=== PATIENT | female | born 1940 | race Caucasian/White ===

== ENCOUNTER 2017-05-12 09:12 | Emergency (ER) | payer BC ==
[2017-05-12] MEDS ORDERED: FAMOTIDINE INJ/PF 20 MG/2 ML SDV IV ONE (09:36)
[2017-05-12] MEDS ORDERED: NORMAL SALINE 1000 ML 1,000 ML IV PRN (09:36)
[2017-05-12] MEDS ORDERED: ONDANSETRON HCL INJ/PF 4 MG/2 ML SDV IV ONE (09:36)
--- NOTE | 2017-05-12 09:36 | ER Document Report ---
ED Medical Screen (RME) - General Chief Complaint: Nausea/Vomiting/Diarrhea Stated Complaint: BACK PAIN, VOMITING Time Seen by Provider: 05/12/17 09:35 Mode of Arrival: Wheelchair Information source: Patient TRAVEL OUTSIDE OF THE [place] IN LAST 30 DAYS: No - HPI Patient complains to provider of: Nausea vomiting and diarrhea Onset: Last week Onset/Duration: Persistent Quality of pain: No pain Associated Symptoms: Diarrhea, Nausea, Vomiting Notes: 05/12/17 09:35 Patient is a 77-year-old female who presents to the emergency room for 1 week history of nausea vomiting and diarrhea, states everything that she eats either gets vomited back up as DIARRHEA, SHE IS FEELING GENERALIZED WEAKNESS AND FATIGUE WELL, DENIES ABDOMINAL PAIN, NO FEVER, NO DYSURIA OR HEMATURIA - Related Data Allergies/Adverse Reactions: ciprofloxacin [From Cipro] Allergy (Verified 05/12/17 09:27) codeine [Codeine] Allergy (Verified 05/12/17 09:27) erythromycin base [Erythromycin Base] Allergy (Verified 05/12/17 09:27) Penicillins Allergy (Verified 05/12/17 09:27) sulfamethoxazole [Sulfamethoxazole] Allergy (Verified 05/12/17 09:27) Tetanus Vaccines and Toxoid [Tetanus] Allergy (Verified 05/12/17 09:27) trimethoprim [From Bactrim DS] Allergy (Verified 05/12/17 09:27) GAS PAIN Past Medical History - Past Medical History Cardiac Medical History: Reports: Hx Heart Attack - mild, Hx Hypercholesterolemia, Hx Hypertension Denies: Hx Coronary Artery Disease Pulmonary Medical History: Reports: Hx Asthma, Hx Bronchitis Denies: Hx COPD, Hx Pneumonia Neurological Medical History: Denies: Hx Cerebrovascular Accident, Hx Seizures Endocrine Medical History: Reports: Hx Diabetes Mellitus Type 2 Renal/ Medical History: Denies: Hx Peritoneal Dialysis GI Medical History: Reports: Hx Gastroesophageal Reflux Disease Musculoskeltal Medical History: Reports Hx Arthritis, Reports Hx Gout Psychiatric Medical History: Reports: Hx Anxiety - Benzodiazepine dependency, continuous, Hx Dementia, Hx Depression Infectious Medical History: Past Surgical History: Reports: Hx Appendectomy, Hx Cholecystectomy, Hx Hysterectomy - Immunizations Hx Diphtheria, Pertussis, Tetanus Vaccination: No Physical Exam - Vital signs Vitals: Temp Pulse Resp BP Pulse Ox 98.4 F 101 H 20 185/76 H 94 05/12/17 09:26 05/12/17 09:26 05/12/17 09:26 05/12/17 09:26 05/12/17 09:26 Course - Vital Signs Vital signs: Temp Pulse Resp BP Pulse Ox 98.4 F 101 H 20 185/76 H 94 05/12/17 09:26 05/12/17 09:26 05/12/17 09:26 05/12/17 09:26 05/12/17 09:26
--- NOTE | 2017-05-12 10:16 | ER Document Report ---
ED General - General Chief Complaint: Nausea/Vomiting/Diarrhea Stated Complaint: BACK PAIN, VOMITING Time Seen by Provider: 05/12/17 09:35 Mode of Arrival: Wheelchair Information source: Patient Notes: 77-year-old female history of hypertension presents with complaints of 1 week of vomiting episodes with diarrhea. Patient denies any fevers or chills denies any abdominal pain. Patient notes that the vomiting occurs either immediately after eating or possibly even 6-12 hours later. Patient denies any similar episodes states she has been unable to hold her medications down TRAVEL OUTSIDE OF THE [place] IN LAST 30 DAYS: No - HPI Onset: Last week Onset/Duration: Persistent Quality of pain: No pain Severity: Mild Pain Level: Denies Associated symptoms: Diarrhea, Nausea, Vomiting Exacerbated by: Denies Relieved by: Denies Similar symptoms previously: No Recently seen / treated by doctor: No - Related Data Allergies/Adverse Reactions: ciprofloxacin [From Cipro] Allergy (Verified 05/12/17 09:27) codeine [Codeine] Allergy (Verified 05/12/17 09:27) erythromycin base [Erythromycin Base] Allergy (Verified 05/12/17 09:27) Penicillins Allergy (Verified 05/12/17 09:27) sulfamethoxazole [Sulfamethoxazole] Allergy (Verified 05/12/17 09:27) Tetanus Vaccines and Toxoid [Tetanus] Allergy (Verified 05/12/17 09:27) trimethoprim [From Bactrim DS] Allergy (Verified 05/12/17 09:27) GAS PAIN Past Medical History - General Information source: Patient - Social History Smoking Status: Never Smoker Cigarette use (# per day): No Chew tobacco use (# tins/day): No Smoking Education Provided: No Frequency of alcohol use: None Drug Abuse: None Family History: Reviewed & Not Pertinent, Hypertension Patient has suicidal ideation: No Patient has homicidal ideation: No - Past Medical History Cardiac Medical History: Reports: Hx Heart Attack - mild, Hx Hypercholesterolemia, Hx Hypertension Denies: Hx Coronary Artery Disease Pulmonary Medical History: Reports: Hx Asthma, Hx Bronchitis Denies: Hx COPD, Hx Pneumonia Neurological Medical History: Denies: Hx Cerebrovascular Accident, Hx Seizures Endocrine Medical History: Reports: Hx Diabetes Mellitus Type 2 Renal/ Medical History: Denies: Hx Peritoneal Dialysis GI Medical History: Reports: Hx Gastroesophageal Reflux Disease Musculoskeltal Medical History: Reports Hx Arthritis, Reports Hx Gout Psychiatric Medical History: Reports: Hx Anxiety - Benzodiazepine dependency, continuous, Hx Dementia, Hx Depression Infectious Medical History: Past Surgical History: Reports: Hx Appendectomy, Hx Cholecystectomy, Hx Hysterectomy - Immunizations Hx Diphtheria, Pertussis, Tetanus Vaccination: No Review of Systems - Review of Systems Notes: REVIEW OF SYSTEMS: CONSTITUTIONAL : Denies fever, chills, or sweats. Denies recent illness. EENT: Denies eye, ear, throat, or mouth pain or symptoms. Denies nasal or sinus congestion or discharge. Denies throat, tongue, or mouth swelling or difficulty swallowing. CARDIOVASCULAR: Denies chest pain. Denies palpitations or racing or irregular heart beat. Denies ankle edema. RESPIRATORY: Denies cough, cold, or chest congestion. Denies shortness of breath, difficulty breathing, or wheezing. GASTROINTESTINAL: admits to nausea vomiting diarrhea GENITOURINARY: Denies difficulty urinating, painful urination, burning, frequency, blood in urine, or discharge. FEMALE GENITOURINARY: Denies vaginal bleeding, heavy or abnormal periods, irregular periods. Denies vaginal discharge or odor. MUSCULOSKELETAL: Denies back or neck pain or stiffness. Denies joint pain or swelling. SKIN: Denies rash, lesions or sores. HEMATOLOGIC : Denies easy bruising or bleeding. LYMPHATIC: Denies swollen, enlarged glands. NEUROLOGICAL: Denies confusion or altered mental status. Denies passing out or loss of consciousness. Denies dizziness or lightheadedness. Denies headache. Denies weakness or paralysis or loss of use of either side. Denies problems with gait or speech. Denies sensory loss, numbness, or tingling. Denies seizures. PSYCHIATRIC: Denies anxiety or stress. Denies depression, suicidal ideation, or homicidal ideation. ALL OTHER SYSTEMS REVIEWED AND NEGATIVE. PHYSICAL EXAMINATION: GENERAL: Well-appearing, well-nourished and in no acute distress. HEAD: Atraumatic, normocephalic. EYES: Pupils equal round and reactive to light, extraocular movements intact, conjunctiva are normal. ENT: Nares patent, oropharynx clear without exudates. Moist mucous membranes. NECK: Normal range of motion, supple without lymphadenopathy LUNGS: Breath sounds clear to auscultation bilaterally and equal. No wheezes rales or rhonchi. HEART: Regular rate and rhythm without murmurs ABDOMEN: Soft, nontender, nondistended abdomen. No guarding, no rebound. No masses appreciated. Female : deferred Musculoskeletal: Normal range of motion, no pitting or edema. No cyanosis. NEUROLOGICAL: Cranial nerves grossly intact. Normal speech, normal gait. Normal sensory, motor exams PSYCH: Normal mood, normal affect. SKIN: Warm, Dry, normal turgor, no rashes or lesions noted. Dictation was performed using [employer] voice recognition software Physical Exam - Vital signs Vitals: Temp Pulse Resp BP Pulse Ox 98.4 F 101 H 20 185/76 H 94 05/12/17 09:26 05/12/17 09:26 05/12/17 09:26 05/12/17 09:26 05/12/17 09:26 Course - Re-evaluation Re-evalutation: 05/12/17 10:15 pt is very well appearing, labs pending, will hydrate and give nausea control 05/12/17 16:02 xray noted no acute abnormaltiy, pt is well appearing, will be given nausea control for home with very close return precautions After performing a Medical Screening Examination, I estimate there is LOW risk for ACUTE APPENDICITIS, BOWEL OBSTRUCTION, ACUTE CHOLECYSTITIS, PERFORATED DIVERTICULITIS, INCARCERATED HERNIA, PANCREATITIS, PELVIC INFLAMMATORY DISEASE, PERFORATED ULCER, ECTOPIC , or TUBO-OVARIAN ABSCESS, thus I consider the discharge disposition reasonable. Also, there is no evidence or peritonitis , sepsis, or toxicity. I have reevaluated this patient multiple times and no significant life threatening changes are noted. The patient and I have discussed the diagnosis and risks, and we agree with discharging home with close follow-up with the understanding that symptoms and presentations can change. We also discussed returning to the Emergency Department immediately if new or worsening symptoms occur. We have discussed the symptoms which are most concerning (e.g., bloody stool, fever, changing or worsening pain, vomiting) that necessitate immediate return. - Vital Signs Vital signs: Temp Pulse Resp BP Pulse Ox 98.3 F 63 19 145/50 H 98 05/12/17 14:17 05/12/17 14:17 05/12/17 14:17 05/12/17 14:17 05/12/17 14:17 - Laboratory Result Diagrams: 05/12/17 09:55 05/12/17 09:55 Laboratory results interpreted by me: 05/12/17 05/12/1705/12/17 09:55 09:55 11:05 WBC 11.2 H Hct 47.4 H Sodium 136.6 L Chloride 95 L Est GFR (Non-Af Amer) 52 L Calcium 10.8 H AST 44 H Ur Leukocyte Esterase SMALL H - Diagnostic Test Radiology reviewed: Image reviewed, Reports reviewed - No acute abnormality Discharge - Discharge Clinical Impression: Nausea & vomiting Qualifiers: Vomiting type: unspecified Vomiting Intractability: non-intractable Qualified Code(s): R11.2 - Nausea with vomiting, unspecified Diarrhea Qualifiers: Diarrhea type: unspecified type Qualified Code(s): R19.7 - Diarrhea, unspecified Condition: Stable Disposition: HOME, SELF-CARE Instructions: Diarrhea, Nonspecific ([facility]), Antinausea Medication ([facility]) Prescriptions: Metoclopramide HCl [Reglan 10 mg Tablet] 1 - 2 tab PO ASDIR PRN #25 tablet PRN Reason: Promethazine HCl [Phenergan 25 mg Supp.rect] 1 supp [place] Q6H #12 supp.rect Referrals: ALEX ULLOA MD [Primary Care Provider] - Follow up tomorrow
--- NOTE | 2017-05-12 10:49 | RADIOLOGY REPORT (SQ) ---
EXAM DESCRIPTION: ACUTE ABDOMEN SERIES COMPLETED DATE/TIME: 05/12/2017 10:38 am REASON FOR STUDY: vomtiing diarrhea COMPARISON: CT abdomen pelvis 05/09/2015 Abdominal series [id number], [id number], [id number] NUMBER OF VIEWS: Three views. TECHNIQUE: Frontal chest, supine abdomen and upright abdomen radiographic images acquired. LIMITATIONS: None. FINDINGS: CHEST: Lungs clear of infiltrates. Cardiac silhouette size, jeane unremarkable. No pleura l effusion or pneumothorax. FREE AIR: None. No abnormal gas collections. BOWEL GAS PATTERN: Nonobstructive pattern. No dilated loops or air fluid levels. CALCIFICATIONS: No suspicious calcifications. HARDWARE: Clips right upper quadrant post cholecystectomy. SOFT TISSUES: No gross mass or suggestion of organomegaly. BONES: Degenerative convex leftward lumbar curvature. OTHER: No other significant finding. IMPRESSION: NO RADIOGRAPHIC EVIDENCE FOR ACUTE ABDOMINAL DISEASE. TECHNICAL DOCUMENTATION: JOB ID: [id number] [employer]- All Rights Reserved
[2017-05-12 11:20] LABS: ABSOLUTE BASOPHILS # (AUTO) 0.1 10^3/uL (0.0-0.2); ABSOLUTE EOSINOPHILS # (AUTO) 0.2 10^3/uL (0.0-0.6); ABSOLUTE LYMPHOCYTES (AUTO) 1.8 10^3/uL (0.5-4.7); ABSOLUTE MONOCYTES (AUTO) 1.2 10^3/uL (0.1-1.4); ABSOLUTE NEUT (AUTO) 8.1 10^3/uL (1.7-8.2); BASOPHILS % (AUTO) 0.5 % (0-2); EOSINOPHILS % (AUTO) 1.9 % (0-6); HEMATOCRIT 47.4 % (36.0-47.0); HEMOGLOBIN 15.5 g/dL (12.0-15.5); HGB HCT DIFFERENCE -0.9; LYMPHOCYTES % (AUTO) 15.8 % (13-45); MEAN CORPUSCULAR HEMOGLOBIN 29.8 pg (27.0-33.4); MEAN CORPUSCULAR HGB CONC 32.8 g/dL (32.0-36.0); MEAN CORPUSCULAR VOLUME 91 fl (80-97); MONOCYTES % (AUTO) 10.2 % (3-13); RED BLOOD COUNT 5.21 10^6/uL (3.72-5.28); RED CELL DISTRIBUTION WIDTH 13.6 % (11.5-14.0); SEGMENTED NEUTROPHILS % (AUTO) 71.6 % (42-78); WHITE BLOOD COUNT 11.2 10^3/uL (4.0-10.5)
[2017-05-12 11:25] LABS: APPEARANCE,URINE CLEAR; BILIRUBIN,URINE NEGATIVE (NEGATIVE); GLUCOSE, URINE NEGATIVE (NEGATIVE); KETONES,URINE NEGATIVE (NEGATIVE); LEUKOCYTE ESTERASE,URINE SMALL (NEGATIVE); NITRITE,URINE NEGATIVE (NEGATIVE); PROTEIN,URINE NEGATIVE (NEGATIVE); URINE SPECIFIC GRAVITY 1.001; UROBILINOGEN,URINE NEGATIVE mg/dL (<2.0)
[2017-05-12 11:25] LABS: ALANINE AMINOTRANSFERASE 46 U/L (9-52); ALBUMIN 4.6 g/dL (3.5-5.0); ALKALINE PHOSPHATASE 124 U/L (38-126); ANION GAP 16 (5-19); ASPARTATE AMINO TRANSFERASE 44 U/L (14-36); BILIRUBIN,DIRECT 0.4 mg/dL (0.0-0.4); BILIRUBIN,TOTAL 0.9 mg/dL (0.2-1.3); BLOOD UREA NITROGEN 11 mg/dL (7-20); CALCIUM 10.8 mg/dL (8.4-10.2); CARBON DIOXIDE 26 mmol/L (22-30); CHLORIDE 95 mmol/L (98-107); CREATININE RESULT 1.04 mg/dL (0.52-1.25); GLUCOSE 109 mg/dL (75-110); POTASSIUM 4.5 mmol/L (3.6-5.0); SODIUM 136.6 mmol/L (137-145)
[2017-05-12] MEDS ORDERED: METOCLOPRAMIDE HCL INJ/PF 10 MG/2 ML SDV IV ONE (11:46)
[2017-05-12 14:28] VITALS: BP 145/50
== END 2017-05-12 14:27 | disposition home or self-care (01) ==
LOC: ER 09:12
DX: R11.2 Nausea with vomiting, unspecified (principal); R19.7 Diarrhea, unspecified; M54.9 Dorsalgia, unspecified
CPT/HCPCS: 99284; 96361; 51701; 96374; 96375; 36415; 85025; 80053; 81001; 74022; J2765; J2405; J7030; S0028

== ENCOUNTER 2017-05-15 09:30 | Emergency (ER) | payer BC ==
--- NOTE | 2017-05-15 10:09 | ER Document Report ---
ED Medical Screen (RME) - General Chief Complaint: Nasal Drainage Stated Complaint: VOMITING,NAUSEA Time Seen by Provider: 05/15/17 09:48 Notes: Patient was seen on 05-12 for vomiting and diarrhea. Now also has sinus symptoms which are contributing to her nausea and vomiting. Patient states she is voiding less than normal. Last meal eaten was yesterday morning for breakfast. no fever. Patient looks mildly ill in room, holding emesis bag. TRAVEL OUTSIDE OF THE [place] IN LAST 30 DAYS: No - Related Data Allergies/Adverse Reactions: ciprofloxacin [From Cipro] Allergy (Verified 05/15/17 09:32) codeine [Codeine] Allergy (Verified 05/15/17 09:32) erythromycin base [Erythromycin Base] Allergy (Verified 05/15/17 09:32) Penicillins Allergy (Verified 05/15/17 09:32) sulfamethoxazole [Sulfamethoxazole] Allergy (Verified 05/15/17 09:32) Tetanus Vaccines and Toxoid [Tetanus] Allergy (Verified 05/15/17 09:32) trimethoprim [From Bactrim DS] Allergy (Verified 05/15/17 09:32) GAS PAIN Past Medical History - Social History Chew tobacco use (# tins/day): No Frequency of alcohol use: None Drug Abuse: None - Past Medical History Cardiac Medical History: Reports: Hx Heart Attack - mild, Hx Hypercholesterolemia, Hx Hypertension Denies: Hx Coronary Artery Disease Pulmonary Medical History: Reports: Hx Asthma, Hx Bronchitis Denies: Hx COPD, Hx Pneumonia Neurological Medical History: Denies: Hx Cerebrovascular Accident, Hx Seizures Endocrine Medical History: Reports: Hx Diabetes Mellitus Type 2 Renal/ Medical History: Denies: Hx Peritoneal Dialysis GI Medical History: Reports: Hx Gastroesophageal Reflux Disease Musculoskeltal Medical History: Reports Hx Arthritis, Reports Hx Gout Psychiatric Medical History: Reports: Hx Anxiety - Benzodiazepine dependency, continuous, Hx Dementia, Hx Depression Infectious Medical History: Past Surgical History: Reports: Hx Appendectomy, Hx Cholecystectomy, Hx Hysterectomy - Immunizations Hx Diphtheria, Pertussis, Tetanus Vaccination: No
[2017-05-15] MEDS ORDERED: ONDANSETRON HCL INJ/PF 4 MG/2 ML SDV IV ONE (10:50)
[2017-05-15] MEDS ORDERED: NORMAL SALINE 1000 ML 1,000 ML IV ONE (10:50)
[2017-05-15 11:21] LABS: ABSOLUTE BASOPHILS # (AUTO) 0.1 10^3/uL (0.0-0.2); ABSOLUTE EOSINOPHILS # (AUTO) 0.3 10^3/uL (0.0-0.6); ABSOLUTE LYMPHOCYTES (AUTO) 1.7 10^3/uL (0.5-4.7); ABSOLUTE MONOCYTES (AUTO) 0.9 10^3/uL (0.1-1.4); ABSOLUTE NEUT (AUTO) 8.4 10^3/uL (1.7-8.2); BASOPHILS % (AUTO) 0.8 % (0-2); EOSINOPHILS % (AUTO) 2.4 % (0-6); HEMOGLOBIN 14.3 g/dL (12.0-15.5); HGB HCT DIFFERENCE -1.1; LYMPHOCYTES % (AUTO) 14.9 % (13-45); MEAN CORPUSCULAR HEMOGLOBIN 29.9 pg (27.0-33.4); MEAN CORPUSCULAR HGB CONC 32.4 g/dL (32.0-36.0); MEAN CORPUSCULAR VOLUME 92 fl (80-97); MONOCYTES % (AUTO) 8.2 % (3-13); RED BLOOD COUNT 4.77 10^6/uL (3.72-5.28); RED CELL DISTRIBUTION WIDTH 13.2 % (11.5-14.0); SEGMENTED NEUTROPHILS % (AUTO) 73.7 % (42-78); WHITE BLOOD COUNT 11.4 10^3/uL (4.0-10.5)
[2017-05-15 11:40] LABS: ALANINE AMINOTRANSFERASE 31 U/L (9-52); ALBUMIN 3.9 g/dL (3.5-5.0); ALKALINE PHOSPHATASE 100 U/L (38-126); ANION GAP 12 (5-19); ASPARTATE AMINO TRANSFERASE 46 U/L (14-36); BILIRUBIN,DIRECT 0.4 mg/dL (0.0-0.4); BILIRUBIN,TOTAL 0.7 mg/dL (0.2-1.3); BLOOD UREA NITROGEN 15 mg/dL (7-20); CALCIUM 9.6 mg/dL (8.4-10.2); CARBON DIOXIDE 27 mmol/L (22-30); CHLORIDE 99 mmol/L (98-107); CREATININE RESULT 1.28 mg/dL (0.52-1.25); GLUCOSE 88 mg/dL (75-110); LIPASE 150.5 U/L (23-300); POTASSIUM 3.7 mmol/L (3.6-5.0); SODIUM 138.3 mmol/L (137-145); TOTAL PROTEIN 7.2 g/dL (6.3-8.2)
[2017-05-15 12:07] LABS: APPEARANCE,URINE CLEAR; BILIRUBIN,URINE NEGATIVE (NEGATIVE); GLUCOSE, URINE NEGATIVE (NEGATIVE); KETONES,URINE TRACE mg/dL (NEGATIVE); LEUKOCYTE ESTERASE,URINE MODERATE (NEGATIVE); NITRITE,URINE NEGATIVE (NEGATIVE); PROTEIN,URINE NEGATIVE (NEGATIVE); URINE SPECIFIC GRAVITY 1.002; UROBILINOGEN,URINE NEGATIVE mg/dL (<2.0)
[2017-05-15] MEDS ORDERED: CEFTRIAXONE 1 GM/D5W RTU 50 ML IV ONE (12:16)
--- NOTE | 2017-05-15 14:52 | ER Document Report ---
ED General - General Chief Complaint: Nasal Drainage Stated Complaint: VOMITING,NAUSEA Time Seen by Provider: 05/15/17 09:48 TRAVEL OUTSIDE OF THE [place] IN LAST 30 DAYS: No - HPI Patient complains to provider of: Nausea vomiting diarrhea Notes: Patient coming in for reevaluation nausea vomiting diarrhea. Patient states that approximately for 5 days ago was given retrofilled again still having nausea vomiting diarrhea. Patient denies any sick contacts denies any recent antibiotics. Patient denies any travel. Patient is having lower abdominal pain this time - Related Data Allergies/Adverse Reactions: ciprofloxacin [From Cipro] Allergy (Verified 05/15/17 09:32) codeine [Codeine] Allergy (Verified 05/15/17 09:32) erythromycin base [Erythromycin Base] Allergy (Verified 05/15/17 09:32) Penicillins Allergy (Verified 05/15/17 09:32) sulfamethoxazole [Sulfamethoxazole] Allergy (Verified 05/15/17 09:32) Tetanus Vaccines and Toxoid [Tetanus] Allergy (Verified 05/15/17 09:32) trimethoprim [From Bactrim DS] Allergy (Verified 05/15/17 09:32) GAS PAIN Past Medical History - Social History Smoking Status: Never Smoker Chew tobacco use (# tins/day): No Frequency of alcohol use: None Drug Abuse: None Family History: Reviewed & Not Pertinent, Hypertension Patient has suicidal ideation: No Patient has homicidal ideation: No - Past Medical History Cardiac Medical History: Reports: Hx Heart Attack - mild, Hx Hypercholesterolemia, Hx Hypertension Denies: Hx Coronary Artery Disease Pulmonary Medical History: Reports: Hx Asthma, Hx Bronchitis Denies: Hx COPD, Hx Pneumonia Neurological Medical History: Denies: Hx Cerebrovascular Accident, Hx Seizures Endocrine Medical History: Reports: Hx Diabetes Mellitus Type 2 Renal/ Medical History: Denies: Hx Peritoneal Dialysis GI Medical History: Reports: Hx Gastroesophageal Reflux Disease Musculoskeltal Medical History: Reports Hx Arthritis, Reports Hx Gout Psychiatric Medical History: Reports: Hx Anxiety - Benzodiazepine dependency, continuous, Hx Dementia, Hx Depression Infectious Medical History: Past Surgical History: Reports: Hx Appendectomy, Hx Cholecystectomy, Hx Hysterectomy - Immunizations Hx Diphtheria, Pertussis, Tetanus Vaccination: No Review of Systems - Review of Systems Constitutional: No symptoms reported EENT: No symptoms reported Cardiovascular: No symptoms reported Respiratory: No symptoms reported Gastrointestinal: Abdominal pain, Diarrhea, Nausea, Vomiting Genitourinary: No symptoms reported Female Genitourinary: No symptoms reported Musculoskeletal: No symptoms reported Skin: No symptoms reported Hematologic/Lymphatic: No symptoms reported Neurological/Psychological: No symptoms reported -: Yes All other systems reviewed and negative Physical Exam - Vital signs Vitals: Temp Pulse Resp BP Pulse Ox 97.8 F 51 L 16 152/51 H 94 05/15/17 17:14 05/15/17 17:14 05/15/17 17:14 05/15/17 17:14 05/15/17 17:14 Interpretation: Normal - General General appearance: Appears well, Alert - HEENT Head: Normocephalic, Atraumatic Eyes: Normal Pupils: PERRL - Respiratory Respiratory status: No respiratory distress Chest status: Nontender Breath sounds: Normal Chest palpation: Normal - Cardiovascular Rhythm: Regular Heart sounds: Normal auscultation Murmur: No - Abdominal Inspection: Normal Distension: No distension Bowel sounds: Normal Tenderness: Tender - Lower quadrant abdominal pain Organomegaly: No organomegaly - Back Back: Normal, Nontender - Extremities General upper extremity: Normal inspection, Nontender, Normal color, Normal ROM , Normal temperature General lower extremity: Normal inspection, Nontender, Normal color, Normal ROM , Normal temperature, Normal weight bearing. No: Angella's sign - Neurological Neuro grossly intact: Yes Cognition: Normal Orientation: AAOx4 Sharon Coma Scale Eye Opening: Spontaneous Grady Coma Scale Verbal: Oriented Sharon Coma Scale Motor: Obeys Commands Grady Coma Scale Total: 15 Speech: Normal Motor strength normal: LUE, RUE, LLE, RLE Sensory: Normal - Psychological Associated symptoms: Normal affect, Normal mood - Skin Skin Temperature: Warm Skin Moisture: Dry Skin Color: Normal Course - Re-evaluation Re-evalutation: 05/15/17 14:50 Laboratory studies showed no increased leukocytosis mild increase in BUN and creatinine suggesting dehydration from the diarrhea and vomiting. Patient has yet to give us a stool sample. Urinalysis does show signs of possible infection patient does have a history of chronic UTIs. We will give initial dose of Rocephin 05/16/17 07:05 Patient seen for nausea vomiting. Patient was able tolerate 2 bottles of oral contrast here in the ER after 4 mg of Zofran. Patient feeling better after IV hydration patient did receive a dose of Rocephin. CT scan showed biliary tree dilation however laboratory studies do not support any signs of obstruction patient also does not have any epigastric right upper quadrant pain. Patient was evaluated by our surgical team who agrees with assessment more likely this dilation is physiological due to her previous cholecystectomy and due to her age. Patient was encouraged take antibiotics as prescribed. Patient was given Zofran for home. Patient will be discharged follow-up with primary care physician. - Vital Signs Vital signs: Temp Pulse Resp BP Pulse Ox 97.8 F 51 L 16 152/51 H 94 05/15/17 17:14 05/15/17 17:14 05/15/17 17:14 05/15/17 17:14 05/15/17 17:14 - Laboratory Result Diagrams: 05/15/17 11:10 05/15/17 11:10 Laboratory results interpreted by me: 05/15/17 05/15/17 05/15/17 11:10 11:10 11:50 WBC 11.4 H Absolute Neutrophils 8.4 H Creatinine 1.28 H Est GFR ( Amer) 49 L Est GFR (Non-Af Amer) 41 L AST 46 H Urine Ketones TRACE H Urine Blood SMALL H Ur Leukocyte Esterase MODERATE H Discharge - Discharge Clinical Impression: Nausea vomiting and diarrhea, Dehydration Urinary tract infection Qualifiers: Urinary tract infection type: site unspecified Hematuria presence: without hematuria Qualified Code(s): N39.0 - Urinary tract infection, site not specified Condition: Good Disposition: HOME, SELF-CARE Instructions: Gastroenteritis (adult) ([facility]), Urinary Tract Infection ([facility]) Additional Instructions: Take medication as Prescribed. Your lab and it does show that you have a urinary tract infection. Your CAT scan did not show any critical pathology that would be causing her symptoms. If he did feel like eating tomorrow I would recommend starchy foods avoiding fat and grease. Also recommended to eat yogurt. I will stick to clear liquid diet today for like eating something. Return to the ER if you feel worse. He may take the Zofran prescribed and the Phenergan together Prescriptions: Nitrofurantoin/Nitrofuran Mac [Macrobid 100 mg Capsule] 1 tab PO BID #20 capsule Ondansetron [Zofran Odt 4 mg Tablet] 1 - 2 tab PO Q4H PRN #30 tab.rapdis PRN Reason: For Nausea/Vomiting Referrals: ZIERMANN,DICK A, DO [Primary Care Provider] - Follow up as needed
--- NOTE | 2017-05-15 15:11 | RADIOLOGY REPORT (SQ) ---
EXAM DESCRIPTION: CT ABD/PELVIS WITH IV ORAL COMPLETED DATE/TIME: 05/15/2017 2:06 pm REASON FOR STUDY: nvd rlq pain COMPARISON: 05/09/2015 TECHNIQUE: CT scan of the abdomen and pelvis performed using helical scanning technique with dynamic intravenous contrast injection. No oral contrast. Images reviewed with lung, soft tissue, and bone windows. Reconstructed coronal and sagittal MPR images reviewed. Delayed images for evaluation of the urinary system also acquired. All images stored on PACS. All CT scanners at this facility use dose modulation, iterative reconstruction, and/or weight based d osing when appropriate to reduce radiation dose to as low as reasonably achievable (ALARA). [facility]: Dose Right [facility]: CareDose [facility]: Dose Right [facility]: Teradose 4D [facility]: [employer] CONTRAST TYPE AND DOSE: contrast/concentration: Isovue 370.00 mg/ml; Total Contrast Delivered: 69.0 ml; Total Saline Delivered: 65.0 ml RENAL FUNCTION: Creatinine 1.28 RADIATION DOSE: Up-to-date CT equipment and radiation dose reduction techniques were employed. CTDIv ol: 8.5 - 12.2 mGy. DLP: 1048 mGy-cm.. LIMITATIONS: None. FINDINGS: LOWER CHEST: No significant findings. No nodules or infiltrates. Mild chronic interstitia l changes. LIVER: Normal size. No masses. Mild biliary tree dilatation particularly the common duct with bilia ry tree the appearing more prominent than on the prior study. Common duct measures 1 cm. No obstruc ting abnormality is seen. This could be related to previous cholecystectomy. Choledocholithiasis an d small ampullary lesions are both considerations. MRCP should be considered for further evaluation. SPLEEN: Normal size. No focal lesions. PANCREAS: No masses. No significant calcifications. No adjacent inflammation or peripancreatic fluid collections. Pancreatic duct not dilated. GALLBLADDER: Surgically absent. ADRENAL GLANDS: No significant masses or asymmetry. RIGHT KIDNEY AND URETER: No solid masses. No significant calcifications. No hydronephrosis or hyd roureter. LEFT KIDNEY AND URETER: No solid masses. No significant calcifications. No hydronephrosis or hydr oureter. AORTA AND VESSELS: No aneurysm. No dissection. Renal arteries, SMA, celiac without stenosis. RETROPERITONEUM: No retroperitoneal adenopathy, hemorrhage or masses. BOWEL AND PERITONEAL CAVITY: No masses or inflammatory changes. No free fluid or peritoneal masses. APPENDIX: Surgically absent. PELVIS: No mass or free fluid. Normal bladder. Status post hysterectomy. ABDOMINAL WALL: No masses. No hernias. BONES: No significant or acute findings. OTHER: No other significant finding. IMPRESSION: 1. Mild dilatation of the biliary tree, particularly the common duct without identifiab le obstructing abnormality. This could be related to previous cholecystectomy. Choledocholithiasis and small ampullary lesion are also considerations. MRCP should be considered for further evaluation . 2. Status post cholecystectomy and hysterectomy. TECHNICAL DOCUMENTATION: JOB ID: [id number] Quality ID # [id number]: Final reports with documentation of one or more dose reduction techniques (e.g., Au tomated exposure control, adjustment of the mA and/or kV according to patient size, use of iterative reconstruction technique) 2010 [employer]- All Rights Reserved
[2017-05-15] MEDS ORDERED: ONDANSETRON ODT 4 MG TAB (6 TAB/DSPK) PO PRN (16:49)
--- NOTE | 2017-05-15 17:13 | CONSULTATION REPORT E ---
Consultation Report NAME: ANGIE WALKER : 1940 AGE: 77Y DATE: 05/15/2017 TO: MALLORY MOE M.D. FROM: Josh AMADOR Requesting Physician REASON FOR CONSULTATION: Patient with dilated biliary tree post laparoscopic cholecystectomy 6 years ago here. Also, the patient has been having nausea and vomiting. HISTORY OF PRESENT ILLNESS: This is a 77-year-old female who underwent laparoscopic cholecystectomy about 6 years ago. Patient has been having nausea and vomiting for the past 3 days. Patient claims it is more of a postnasal drip and then precipitates the vomiting. She did have some pains in the right lower quadrant, but a CAT scan did not show any pathology in the abdomen other than the dilated bile ducts. The patient does not have any pains in the right upper quadrant. ALLERGIES: The patient is allergic to multiple medications, includin. PENICILLIN. 2. SULFA. REVIEW OF SYSTEMS: As in HPI. Denies any diarrhea or constipation. No other symptoms reported. PHYSICAL EXAMINATION: GENERAL: A well-developed, well-nourished 77-year-old female, quite alert and oriented, in no apparent acute abdominal pain. NECK: Supple. LUNGS: Clear. HEART: Regular sinus rhythm. ABDOMEN: Soft and nontender even on deep palpation of all 4 quadrants. EXTREMITIES: No edema. IMPRESSION: Normal dilatation of the bile ducts post cholecystectomy. No physical findings in the abdomen on examination. I discussed the case with Dr. Archuleta, and we both agree that most likely this is a viral condition at this time. DICTATING PHYSICIAN: MALLORY MOE M.D. [id number] PHY#: [id number] ID: [id number] JOB#: [id number] ACCT: [id number] cc:MALLORY MOE M.D. >
[2017-05-15 17:15] VITALS: BP 152/51
== END 2017-05-15 17:30 | disposition home or self-care (01) ==
LOC: ER 09:30
DX: R11.2 Nausea with vomiting, unspecified (principal); R19.7 Diarrhea, unspecified; E86.0 Dehydration; N39.0 Urinary tract infection, site not specified; D72.829 Elevated white blood cell count, unspecified; R10.31 Right lower quadrant pain; I25.2 Old myocardial infarction; I10 Essential (primary) hypertension; E11.9 Type 2 diabetes mellitus without complications; J45.909 Unspecified asthma, uncomplicated; Z88.1 Allergy status to other antibiotic agents; Z88.5 Allergy status to narcotic agent; Z88.0 Allergy status to penicillin; Z88.7 Allergy status to serum and vaccine; Z88.2 Allergy status to sulfonamides; Z87.19 Personal history of other diseases of the digestive system; Z90.49 Acquired absence of other specified parts of digestive tract; Z90.710 Acquired absence of both cervix and uterus
CPT/HCPCS: 99284; 96361; 96375; 96365; 36415; 87086; 83690; 83735; 85025; 87088; 80053; 81001; 87186; 74177; J2405; J7030; J0696

== ENCOUNTER 2017-05-22 09:34 | Emergency (ER) | payer BC ==
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
[2017-05-22] MEDS ORDERED: ONDANSETRON HCL INJ/PF 4 MG/2 ML SDV IV ONE (10:02)
--- NOTE | 2017-05-22 10:27 | EKG REPORT ---
SEVERITY:- ABNORMAL ECG - SINUS RHYTHM PROBABLE INFERIOR INFARCT, AGE INDETERMINATE ANTERIOR INFARCT, OLD : Confirmed by: Oly Johnson 22-May-2017 10:26:25
[2017-05-22 10:41] LABS: ABSOLUTE BASOPHILS # (AUTO) 0.1 10^3/uL (0.0-0.2); ABSOLUTE EOSINOPHILS # (AUTO) 0.2 10^3/uL (0.0-0.6); ABSOLUTE LYMPHOCYTES (AUTO) 1.4 10^3/uL (0.5-4.7); ABSOLUTE MONOCYTES (AUTO) 1.1 10^3/uL (0.1-1.4); ABSOLUTE NEUT (AUTO) 9.4 10^3/uL (1.7-8.2); BASOPHILS % (AUTO) 0.6 % (0-2); EOSINOPHILS % (AUTO) 1.6 % (0-6); HEMATOCRIT 46.5 % (36.0-47.0); HEMOGLOBIN 15.1 g/dL (12.0-15.5); HGB HCT DIFFERENCE -1.2; LYMPHOCYTES % (AUTO) 11.7 % (13-45); MEAN CORPUSCULAR HEMOGLOBIN 29.8 pg (27.0-33.4); MEAN CORPUSCULAR HGB CONC 32.5 g/dL (32.0-36.0); MEAN CORPUSCULAR VOLUME 92 fl (80-97); MONOCYTES % (AUTO) 9.1 % (3-13); RED BLOOD COUNT 5.07 10^6/uL (3.72-5.28); RED CELL DISTRIBUTION WIDTH 13.6 % (11.5-14.0); WHITE BLOOD COUNT 12.2 10^3/uL (4.0-10.5)
[2017-05-22 10:47] LABS: APPEARANCE,URINE SLIGHTLY-CLOUDY; BILIRUBIN,URINE NEGATIVE (NEGATIVE); GLUCOSE, URINE NEGATIVE (NEGATIVE); KETONES,URINE 20 mg/dL (NEGATIVE); LEUKOCYTE ESTERASE,URINE NEGATIVE (NEGATIVE); NITRITE,URINE NEGATIVE (NEGATIVE); PROTEIN,URINE NEGATIVE (NEGATIVE); URINE SPECIFIC GRAVITY 1.011; UROBILINOGEN,URINE NEGATIVE mg/dL (<2.0)
[2017-05-22 11:37] LABS: ALANINE AMINOTRANSFERASE 27 U/L (9-52); ALBUMIN 4.2 g/dL (3.5-5.0); ALKALINE PHOSPHATASE 106 U/L (38-126); ANION GAP 17 (5-19); ASPARTATE AMINO TRANSFERASE 31 U/L (14-36); BILIRUBIN,DIRECT 0.4 mg/dL (0.0-0.4); BILIRUBIN,TOTAL 0.7 mg/dL (0.2-1.3); BLOOD UREA NITROGEN 12 mg/dL (7-20); CALCIUM 10.3 mg/dL (8.4-10.2); CARBON DIOXIDE 22 mmol/L (22-30); CHLORIDE 96 mmol/L (98-107); CREATINE KINASE 47 U/L (30-135); CREATININE RESULT 1.17 mg/dL (0.52-1.25); GLUCOSE 85 mg/dL (75-110); LIPASE 165.3 U/L (23-300); POTASSIUM 4.2 mmol/L (3.6-5.0); SODIUM 134.9 mmol/L (137-145); TOTAL PROTEIN 7.8 g/dL (6.3-8.2)
--- NOTE | 2017-05-22 11:40 | RADIOLOGY REPORT (SQ) ---
EXAM DESCRIPTION: U/S ABDOMEN LIMITED W/O DOP COMPLETED DATE/TIME: 05/22/2017 11:19 am REASON FOR STUDY: Cholecystectomy, abd pn, r/o choledocho COMPARISON: CT abdomen pelvis 05/15/2017 MRI lumbar spine 06/29/2015 CT chest 05/11/2015 Abdominal ultrasound 05/15/2014 TECHNIQUE: Dynamic and static grayscale images acquired of the abdomen and recorded on PACS. Additio nal selected color Doppler and spectral images recorded. LIMITATIONS: Midline bowel gas FINDINGS: PANCREAS: Midline pancreas unremarkable LIVER: No masses. Echotexture normal. LIVER VASCULATURE: Normal directional flow of the main portal vein and hepatic veins. GALLBLADDER: Surgically absent. ULTRASOUND-DETECTED REYES'S SIGN: Not applicable. INTRAHEPATIC DUCTS AND COMMON DUCT: No intrahepatic biliary ductal dilatation. Common bile duct at t he chris hepatis measures 7 mm in diameter. This is similar compared to prior cross-sectional imagin g. Distal common duct not well seen due to duodenum gas. INFERIOR VENA CAVA: Normal flow. AORTA: No aneurysm. RIGHT KIDNEY: Normal size. Normal echogenicity. No solid or suspicious masses. No hydronephrosis. No calcifications. PERITONEAL AND RIGHT PLEURAL SPACE: No ascites or effusions. OTHER: No other significant findings. IMPRESSION: Post cholecystectomy. Common bile duct measures about 7 mm at the chris hepatis, similar compared to previous cross-section al imaging. Distal most common duct not well seen due to duodenum gas. TECHNICAL DOCUMENTATION: JOB ID: [id number] [employer]- All Rights Reserved
[2017-05-22 12:46] VITALS: BP 170/93
== END 2017-05-22 13:00 | disposition home or self-care (01) ==
LOC: ER 09:34
DX: R11.2 Nausea with vomiting, unspecified (principal); R19.7 Diarrhea, unspecified; E78.00 Pure hypercholesterolemia, unspecified; I10 Essential (primary) hypertension; E11.9 Type 2 diabetes mellitus without complications; Z90.49 Acquired absence of other specified parts of digestive tract; Z88.3 Allergy status to other anti-infective agents; Z88.6 Allergy status to analgesic agent; Z88.0 Allergy status to penicillin; Z88.7 Allergy status to serum and vaccine; I25.2 Old myocardial infarction; Z90.710 Acquired absence of both cervix and uterus
CPT/HCPCS: 93005; 99284; 36415; 87086; 82962; 82550; 83690; 85025; 80053; 81001; 84484; 76705; 93010; J2405

== ENCOUNTER 2017-06-14 10:55 | Emergency (ER) | payer BC ==
[2017-06-14 12:08] LABS: ABSOLUTE BASOPHILS # (AUTO) 0.1 10^3/uL (0.0-0.2); ABSOLUTE EOSINOPHILS # (AUTO) 0.2 10^3/uL (0.0-0.6); ABSOLUTE LYMPHOCYTES (AUTO) 1.4 10^3/uL (0.5-4.7); ABSOLUTE MONOCYTES (AUTO) 1.1 10^3/uL (0.1-1.4); ABSOLUTE NEUT (AUTO) 9.4 10^3/uL (1.7-8.2); BASOPHILS % (AUTO) 0.7 % (0-2); HEMOGLOBIN 14.6 g/dL (12.0-15.5); HGB HCT DIFFERENCE -1.2; LYMPHOCYTES % (AUTO) 11.7 % (13-45); MEAN CORPUSCULAR HEMOGLOBIN 29.4 pg (27.0-33.4); MEAN CORPUSCULAR HGB CONC 32.4 g/dL (32.0-36.0); MEAN CORPUSCULAR VOLUME 91 fl (80-97); MONOCYTES % (AUTO) 8.8 % (3-13); RED BLOOD COUNT 4.97 10^6/uL (3.72-5.28); SEGMENTED NEUTROPHILS % (AUTO) 76.8 % (42-78); WHITE BLOOD COUNT 12.2 10^3/uL (4.0-10.5)
[2017-06-14 12:10] LABS: APPEARANCE,URINE CLEAR; BILIRUBIN,URINE NEGATIVE (NEGATIVE); GLUCOSE, URINE NEGATIVE (NEGATIVE); KETONES,URINE TRACE mg/dL (NEGATIVE); LEUKOCYTE ESTERASE,URINE TRACE (NEGATIVE); NITRITE,URINE NEGATIVE (NEGATIVE); PROTEIN,URINE NEGATIVE (NEGATIVE); URINE SPECIFIC GRAVITY 1.005; UROBILINOGEN,URINE NEGATIVE mg/dL (<2.0)
[2017-06-14 12:16] LABS: ALANINE AMINOTRANSFERASE 32 U/L (9-52); ALBUMIN 4.4 g/dL (3.5-5.0); ALKALINE PHOSPHATASE 119 U/L (38-126); ANION GAP 13 (5-19); ASPARTATE AMINO TRANSFERASE 27 U/L (14-36); BILIRUBIN,DIRECT 0.4 mg/dL (0.0-0.4); BILIRUBIN,TOTAL 1.2 mg/dL (0.2-1.3); BLOOD UREA NITROGEN 13 mg/dL (7-20); CALCIUM 10.3 mg/dL (8.4-10.2); CARBON DIOXIDE 23 mmol/L (22-30); CHLORIDE 104 mmol/L (98-107); CREATININE RESULT 1.13 mg/dL (0.52-1.25); GLUCOSE 106 mg/dL (75-110); POTASSIUM 4.7 mmol/L (3.6-5.0); SODIUM 139.8 mmol/L (137-145); TOTAL PROTEIN 7.3 g/dL (6.3-8.2)
[2017-06-14 12:18] LABS: ALCOHOL < 10 mg/dL (NONE DETECTED)
[2017-06-14 12:25] LABS: URINE BARBITURATES SCREEN NEGATIVE; URINE METHADONE SCREEN NEGATIVE; URINE OPIATES LOW NEGATIVE; URINE PHENCYCLIDINE SCREEN NEGATIVE
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
[2017-06-14] MEDS ORDERED: (PENDING PHARMACY ID) (Ondansetron Hcl [Zofran 4 Mg Tablet] 4 MG) PO PRN (16:53)
[2017-06-14] MEDS ORDERED: ALBUTEROL SULFATE HFA (90 MCG/PUFF) 8 GM MDI (1 MDI/ER DISP) IH PRN (16:53)
[2017-06-14] MEDS ORDERED: ONDANSETRON 4 MG TAB.RAPDIS PO PRN (17:00)
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
[2017-06-14] MEDS: DONEPEZIL HCL 5 MG TABLET PO SCH (17:46)
[2017-06-14] MEDS ORDERED: (PENDING PHARMACY ID) (Azelastine Hcl [Azelastine Hcl] 1 SPRAY) NASL SCH (18:00)
[2017-06-14] MEDS: CETIRIZINE 5 MG TABLET PO SCH (18:07)
[2017-06-14] MEDS: MONTELUKAST SODIUM 10 MG TABLET PO SCH (22:04)
[2017-06-14] MEDS: MEMANTINE HCL 10 MG TABLET PO SCH (22:05)
[2017-06-14] MEDS: TRAZODONE HCL 50 MG TABLET PO SCH (22:05)
[2017-06-15] MEDS: ALPRAZOLAM 0.5 MG TABLET PO PRN (00:42)
--- NOTE | 2017-06-15 06:01 | EKG REPORT ---
SEVERITY:- ABNORMAL ECG - SINUS RHYTHM PROBABLE INFERIOR INFARCT, AGE INDETERMINATE CONSIDER ANTEROSEPTAL INFARCT : Confirmed by: Abbey Henderson MD 15-Jun-2017 06:00:57
[2017-06-15] MEDS: FLUOXETINE HCL 20 MG CAPSULE PO SCH (08:21)
[2017-06-15] MEDS: METOPROLOL TARTRATE 50 MG TABLET PO SCH (08:21)
[2017-06-15] MEDS: LANSOPRAZOLE 30 MG TAB.RAP.DR PO SCH (08:21)
[2017-06-15] MEDS ORDERED: (PENDING PHARMACY ID) (Ranitidine Hcl [Zantac 150 Mg Tablet] 150 MG) PO SCH (10:00)
[2017-06-15] MEDS ORDERED: (PENDING PHARMACY ID) (Mometasone Furoate [Nasonex] 2 SPRAY) NASL SCH (10:00)
[2017-06-15] MEDS: DONEPEZIL HCL 5 MG TABLET PO SCH ×2 (10:16→19:24)
[2017-06-15] MEDS: ALLOPURINOL 100 MG TABLET PO SCH (10:16)
[2017-06-15] MEDS: MEMANTINE HCL 10 MG TABLET PO SCH ×2 (10:17→22:50)
[2017-06-15] MEDS: FAMOTIDINE 20 MG TABLET PO SCH (10:17)
[2017-06-15] MEDS: FLUTICASONE NASAL SPRAY 50 MCG/SPRY 120 SPRAY/16 GM NASL SCH (10:17)
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
[2017-06-15 17:05] LABS: ABSOLUTE BASOPHILS # (AUTO) 0.1 10^3/uL (0.0-0.2); ABSOLUTE EOSINOPHILS # (AUTO) 0.6 10^3/uL (0.0-0.6); ABSOLUTE LYMPHOCYTES (AUTO) 1.7 10^3/uL (0.5-4.7); ABSOLUTE MONOCYTES (AUTO) 0.8 10^3/uL (0.1-1.4); ABSOLUTE NEUT (AUTO) 6.5 10^3/uL (1.7-8.2); BASOPHILS % (AUTO) 0.7 % (0-2); HEMATOCRIT 44.2 % (36.0-47.0); HEMOGLOBIN 14.6 g/dL (12.0-15.5); HGB HCT DIFFERENCE -0.4; LYMPHOCYTES % (AUTO) 17.8 % (13-45); MEAN CORPUSCULAR HEMOGLOBIN 30.2 pg (27.0-33.4); MEAN CORPUSCULAR HGB CONC 33.2 g/dL (32.0-36.0); MEAN CORPUSCULAR VOLUME 91 fl (80-97); MONOCYTES % (AUTO) 8.1 % (3-13); RED BLOOD COUNT 4.85 10^6/uL (3.72-5.28); RED CELL DISTRIBUTION WIDTH 13.8 % (11.5-14.0); SEGMENTED NEUTROPHILS % (AUTO) 67.4 % (42-78); WHITE BLOOD COUNT 9.7 10^3/uL (4.0-10.5)
[2017-06-15 18:10] LABS: ALANINE AMINOTRANSFERASE 27 U/L (9-52); ALKALINE PHOSPHATASE 93 U/L (38-126); ANION GAP 12 (5-19); ASPARTATE AMINO TRANSFERASE 23 U/L (14-36); BILIRUBIN,DIRECT 0.3 mg/dL (0.0-0.4); BILIRUBIN,TOTAL 1.3 mg/dL (0.2-1.3); BLOOD UREA NITROGEN 13 mg/dL (7-20); CALCIUM 10.2 mg/dL (8.4-10.2); CARBON DIOXIDE 24 mmol/L (22-30); CHLORIDE 102 mmol/L (98-107); CREATININE RESULT 1.13 mg/dL (0.52-1.25); GLUCOSE 106 mg/dL (75-110); POTASSIUM 4.3 mmol/L (3.6-5.0); SODIUM 137.9 mmol/L (137-145)
[2017-06-15] MEDS: CETIRIZINE 5 MG TABLET PO SCH (19:22)
[2017-06-15 20:27] LABS: APPEARANCE,URINE CLEAR; BILIRUBIN,URINE NEGATIVE (NEGATIVE); GLUCOSE, URINE NEGATIVE (NEGATIVE); KETONES,URINE 20 mg/dL (NEGATIVE); LEUKOCYTE ESTERASE,URINE SMALL (NEGATIVE); NITRITE,URINE NEGATIVE (NEGATIVE); PROTEIN,URINE NEGATIVE (NEGATIVE); URINE SPECIFIC GRAVITY 1.013; UROBILINOGEN,URINE NEGATIVE mg/dL (<2.0)
[2017-06-15] MEDS: MONTELUKAST SODIUM 10 MG TABLET PO SCH (22:50)
[2017-06-15] MEDS: TRAZODONE HCL 50 MG TABLET PO SCH (22:50)
[2017-06-16] MEDS: METOPROLOL TARTRATE 50 MG TABLET PO SCH (07:54)
[2017-06-16] MEDS: LANSOPRAZOLE 30 MG TAB.RAP.DR PO SCH (07:54)
[2017-06-16] MEDS: FLUOXETINE HCL 20 MG CAPSULE PO SCH (07:54)
[2017-06-16] MEDS: ALPRAZOLAM 0.5 MG TABLET PO PRN (08:10)
[2017-06-16] MEDS: ALLOPURINOL 100 MG TABLET PO SCH (11:23)
[2017-06-16] MEDS: FAMOTIDINE 20 MG TABLET PO SCH (11:23)
[2017-06-16] MEDS: MEMANTINE HCL 10 MG TABLET PO SCH (11:23)
[2017-06-16] MEDS: FLUTICASONE NASAL SPRAY 50 MCG/SPRY 120 SPRAY/16 GM NASL SCH (11:24)
[2017-06-16] MEDS: DONEPEZIL HCL 5 MG TABLET PO SCH (11:24)
[2017-06-16 16:51] VITALS: BP 150/70
== END 2017-06-16 16:51 | disposition home or self-care (01) ==
LOC: ER 10:55
DX: F03.91 Unspecified dementia, unspecified severity, with behavioral disturbance (principal); R11.2 Nausea with vomiting, unspecified; R90.82 White matter disease, unspecified; D72.829 Elevated white blood cell count, unspecified; I25.2 Old myocardial infarction; I10 Essential (primary) hypertension; J45.909 Unspecified asthma, uncomplicated; E11.9 Type 2 diabetes mellitus without complications; Z91.14 Patient's other noncompliance with medication regimen; Z88.1 Allergy status to other antibiotic agents; Z88.5 Allergy status to narcotic agent; Z88.0 Allergy status to penicillin; Z88.7 Allergy status to serum and vaccine
CPT/HCPCS: 93005; 99285; 36415; 87086; 80307 ×4; 85025; 87088; 80053; 81001; 87186; 93010; S0119; J3490 ×2

== ENCOUNTER 2018-03-27 08:39 | Emergency (ER) | payer BC, MEDICARE ==
--- NOTE | 2018-03-27 09:05 | ER Document Report ---
ED General - General Chief Complaint: Abnormal Lab Results Stated Complaint: ABNORMAL LABS Time Seen by Provider: 03/27/18 08:55 Notes: 77-year-old female who had blood drawn on Sunday. The patient was told by Dr. Carmona's office that there was some blood in her urine. She was told that she may have an infection and go to the ER to be evaluated. The patient denies any fever or chills she denies any gross hematuria. Denies any burning or pain with urination has a history of chronic kidney disease. Denies any chest pain denies any shortness of breath. Denies any extremity numbness tingling or weakness denies headache. Patient denies any specific complaints. TRAVEL OUTSIDE OF THE [place] IN LAST 30 DAYS: No - Related Data Allergies/Adverse Reactions: ciprofloxacin [From Cipro] Allergy (Verified 03/27/18 08:58) codeine [Codeine] Allergy (Verified 03/27/18 08:58) erythromycin base [Erythromycin Base] Allergy (Verified 03/27/18 08:58) Penicillins Allergy (Verified 03/27/18 08:58) sulfamethoxazole [Sulfamethoxazole] Allergy (Verified 03/27/18 08:58) Tetanus Vaccines and Toxoid [Tetanus] Allergy (Verified 03/27/18 08:58) trimethoprim [From Bactrim DS] Allergy (Verified 03/27/18 08:58) GAS PAIN Past Medical History - Social History Smoking Status: Former Smoker Chew tobacco use (# tins/day): No Frequency of alcohol use: None Drug Abuse: None Family History: Reviewed & Not Pertinent, Hypertension Patient has suicidal ideation: No Patient has homicidal ideation: No - Past Medical History Cardiac Medical History: Reports: Hx Heart Attack - mild, Hx Hypercholesterolemia, Hx Hypertension Denies: Hx Coronary Artery Disease Pulmonary Medical History: Reports: Hx Asthma, Hx Bronchitis Denies: Hx COPD, Hx Pneumonia Neurological Medical History: Denies: Hx Cerebrovascular Accident, Hx Seizures Endocrine Medical History: Reports: Hx Diabetes Mellitus Type 2 Renal/ Medical History: Denies: Hx Peritoneal Dialysis GI Medical History: Reports: Hx Gastroesophageal Reflux Disease Musculoskeltal Medical History: Reports Hx Arthritis, Reports Hx Gout Psychiatric Medical History: Reports: Hx Anxiety - Benzodiazepine dependency, continuous, Hx Dementia, Hx Depression Infectious Medical History: Past Surgical History: Reports: Hx Appendectomy, Hx Cholecystectomy, Hx Hysterectomy - Immunizations Hx Diphtheria, Pertussis, Tetanus Vaccination: No Review of Systems - Review of Systems Constitutional: denies: Chills, Fever Cardiovascular: denies: Chest pain, Dyspnea Gastrointestinal: denies: Nausea, Vomiting, Constipation Genitourinary: Hematuria, Incontinence. denies: Dysuria Musculoskeletal: denies: Back pain Neurological/Psychological: denies: Headaches -: Yes All other systems reviewed and negative Physical Exam - Vital signs Vitals: Temp Pulse Resp BP Pulse Ox 97.9 F 53 L 18 186/64 H 96 03/27/18 08:45 03/27/18 08:45 03/27/18 08:45 03/27/18 08:45 03/27/18 08:45 - Notes Notes: GENERAL_APPEARANCE: well_nourished, alert, cooperative, no_acute_distress, no_ obvious_discomfort. VITALS: reviewed, see vital signs table. HEAD: no_swelling\tenderness on the head. EYES: conjunctiva_clear. NOSE: no_nasal_discharge. MOUTH: (-)decreased moisture. THROAT: no_airway_obstruction. no_lymphadenopathy NECK: supple, no_neck_tenderness, (-)thyromegaly. BACK: no_back_tenderness. CHEST_WALL: no_chest_tenderness. LUNGS: no_wheezing, no_rales, no_rhonchi, (-)accessory muscle use, good air exchange bilateral. HEART: normal_rate, normal_rhythm, normal_S1, normal_S2, (-)S3, (-)S4, no_ murmur, no_rub. ABDOMEN: normal_BS, soft, no_abd_tenderness, (-)guarding, (-)rebound, no_ organomegaly, no_abd_masses. EXTREMITIES: good pulses in all_extremities, no_swelling\tenderness in the extremities, no_edema. SKIN: warm, dry, good_color, no_rash. MENTAL_STATUS: speech_clear, oriented_X_3, normal_affect, responds_ appropriately to questions. Course - Re-evaluation Re-evalutation: 03/27/18 09:14 Patient was sent in for blood in her urine. Patient has no complaints we will recheck her urine and get the labs from Dr. Carmona's office. 03/27/18 13:13 Patient does have a urinary tract infection. Will place her on antibiotics she does not appear septic. Her renal function has been similar in the past she has an appointment with Dr. Carmona in the next several days. She is stable for discharge home We were not able to get the labs that were drawn outpatient that the patient had several days ago. We have tried calling Dr. Carmona's office and [facility] without success. - Vital Signs Vital signs: Temp Pulse Resp BP Pulse Ox 97.9 F 53 L 18 186/64 H 96 03/27/18 08:45 03/27/18 08:45 03/27/18 08:45 03/27/18 08:45 03/27/18 08:45 - Laboratory Result Diagrams: 03/27/18 11:50 03/27/18 11:50 Laboratory results interpreted by me: 03/27/18 03/27/18 03/27/18 09:10 11:50 11:50 WBC 12.6 H Absolute Neutrophils 9.2 H Chloride 109 H Carbon Dioxide 21 L BUN 29 H Creatinine 1.32 H Est GFR ( Amer) 47 L Est GFR (Non-Af Amer) 39 L AST 41 H Urine Protein 30 H Urine Blood SMALL H Ur Leukocyte Esterase LARGE H Discharge - Discharge Clinical Impression: UTI (urinary tract infection) Qualifiers: Urinary tract infection type: acute cystitis Hematuria presence: with hematuria Qualified Code(s): N30.01 - Acute cystitis with hematuria Condition: Good Disposition: HOME, SELF-CARE Instructions: Urinary Tract Infection, Child ([facility]) Additional Instructions: Please follow-up with Dr. Carmona as previously scheduled please take the antibiotic as indicated Prescriptions: Cefuroxime Axetil [Ceftin 500 mg Tablet] 1 tab PO BID #20 tablet Referrals: DICK JENKINS DO [Primary Care Provider] - Follow up as needed
[2018-03-27 09:41] LABS: APPEARANCE,URINE CLOUDY; BILIRUBIN,URINE NEGATIVE (NEGATIVE); COLOR,URINE YELLOW; GLUCOSE, URINE NEGATIVE (NEGATIVE); KETONES,URINE NEGATIVE (NEGATIVE); LEUKOCYTE ESTERASE,URINE LARGE (NEGATIVE); NITRITE,URINE NEGATIVE (NEGATIVE); PROTEIN,URINE 30 mg/dL (NEGATIVE); URINE SPECIFIC GRAVITY 1.018; UROBILINOGEN,URINE NEGATIVE mg/dL (<2.0)
[2018-03-27 12:14] LABS: ABSOLUTE BASOPHILS # (AUTO) 0.1 10^3/uL (0.0-0.2); ABSOLUTE EOSINOPHILS # (AUTO) 0.5 10^3/uL (0.0-0.6); ABSOLUTE MONOCYTES (AUTO) 0.9 10^3/uL (0.1-1.4); ABSOLUTE NEUT (AUTO) 9.2 10^3/uL (1.7-8.2); EOSINOPHILS % (AUTO) 3.8 % (0-6); HEMOGLOBIN 14.1 g/dL (12.0-15.5); LYMPHOCYTES % (AUTO) 15.7 % (13-45); MEAN CORPUSCULAR HEMOGLOBIN 29.7 pg (27.0-33.4); MEAN CORPUSCULAR HGB CONC 32.8 g/dL (32.0-36.0); MEAN CORPUSCULAR VOLUME 91 fl (80-97); MONOCYTES % (AUTO) 6.9 % (3-13); PLATELET COUNT 199 10^3/uL (150-450); RED BLOOD COUNT 4.75 10^6/uL (3.72-5.28); RED CELL DISTRIBUTION WIDTH 13.5 % (11.5-14.0); SEGMENTED NEUTROPHILS % (AUTO) 72.6 % (42-78); TOTAL CELLS COUNTED % (AUTO) 100 %; WHITE BLOOD COUNT 12.6 10^3/uL (4.0-10.5)
[2018-03-27 12:29] LABS: ALANINE AMINOTRANSFERASE 50 U/L (9-52); ALKALINE PHOSPHATASE 109 U/L (38-126); ANION GAP 14 (5-19); ASPARTATE AMINO TRANSFERASE 41 U/L (14-36); BILIRUBIN,DIRECT 0.3 mg/dL (0.0-0.4); BILIRUBIN,TOTAL 0.4 mg/dL (0.2-1.3); BLOOD UREA NITROGEN 29 mg/dL (7-20); CALCIUM 9.8 mg/dL (8.4-10.2); CARBON DIOXIDE 21 mmol/L (22-30); CHLORIDE 109 mmol/L (98-107); GLUCOSE 101 mg/dL (75-110); POTASSIUM 4.3 mmol/L (3.6-5.0); SODIUM 144.4 mmol/L (137-145)
[2018-03-27 13:43] VITALS: BP 153/51
== END 2018-03-27 13:52 | disposition home or self-care (01) ==
LOC: ER 08:39
DX: N30.01 Acute cystitis with hematuria (principal); Z87.891 Personal history of nicotine dependence; I10 Essential (primary) hypertension; J45.909 Unspecified asthma, uncomplicated; E11.9 Type 2 diabetes mellitus without complications
CPT/HCPCS: 36415; 80053; 81001; 85025; 87086; 87088; 87186; 99283

== ENCOUNTER 2020-01-14 10:51 | Inpatient (IN) | payer MEDICARE, BC ==
--- NOTE | 2020-01-14 11:27 | RADIOLOGY REPORT (SQ) ---
EXAM DESCRIPTION: CHEST SINGLE VIEW COMPLETED DATE/TIME: 01/14/2020 11:15 am REASON FOR STUDY: cough COMPARISON: 05/12/2015 EXAM PARAMETERS: NUMBER OF VIEWS: One view. TECHNIQUE: Single frontal radiographic view of the chest acquired. RADIATION DOSE: NA LIMITATIONS: Low lung volumes. FINDINGS: LUNGS AND PLEURA: Prominent interstitial markings most marked in the left base. Not signi ficantly changed from 2015. Most likely chronic. No pneumothorax or effusion. MEDIASTINUM AND HILAR STRUCTURES: No masses. Contour normal. HEART AND VASCULAR STRUCTURES: Stable in appearance. No failure. BONES: No acute findings. HARDWARE: None in the chest. OTHER: No other significant finding. IMPRESSION: Stable chest. No acute findings. Suspect chronic interstitial lung disease. TECHNICAL DOCUMENTATION: JOB ID: [id number] 2010 [employer]- All Rights Reserved Reading location - IP/workstation name: [email or web address]
[2020-01-14 11:42] LABS: ABSOLUTE LYMPHOCYTES (AUTO) 0.8 10^3/uL (0.5-4.7); ABSOLUTE MONOCYTES (AUTO) 1.2 10^3/uL (0.1-1.4); ABSOLUTE NEUT (AUTO) 8.6 10^3/uL (1.7-8.2); BASOPHILS % (AUTO) 0.4 % (0-2); EOSINOPHILS % (AUTO) 0.3 % (0-6); HEMATOCRIT 26.5 % (36.0-47.0); HEMOGLOBIN 8.1 g/dL (12.0-15.5); LYMPHOCYTES % (AUTO) 7.5 % (13-45); MEAN CORPUSCULAR HEMOGLOBIN 25.4 pg (27.0-33.4); MEAN CORPUSCULAR HGB CONC 30.7 g/dL (32.0-36.0); MEAN CORPUSCULAR VOLUME 83 fl (80-97); MONOCYTES % (AUTO) 11.4 % (3-13); PLATELET COUNT 121 10^3/uL (150-450); SEGMENTED NEUTROPHILS % (AUTO) 80.4 % (42-78); TOTAL CELLS COUNTED % (AUTO) 100 %; WHITE BLOOD COUNT 10.7 10^3/uL (4.0-10.5)
[2020-01-14 11:44] LABS: INTERNATIONAL RATION (INR) 1.26; PROTHROMBIN TIME 15.9 SEC (11.4-15.4)
[2020-01-14 11:54] LABS: ALBUMIN 3.7 g/dL (3.5-5.0); ALKALINE PHOSPHATASE 147 U/L (38-126); ANION GAP 15 (5-19); ASPARTATE AMINO TRANSFERASE 57 U/L (14-36); BILIRUBIN,TOTAL 0.5 mg/dL (0.2-1.3); BLOOD UREA NITROGEN 56 mg/dL (7-20); CALCIUM 9.3 mg/dL (8.4-10.2); CARBON DIOXIDE 17 mmol/L (22-30); CHLORIDE 112 mmol/L (98-107); GLUCOSE 224 mg/dL (75-110); POTASSIUM 4.8 mmol/L (3.6-5.0); TOTAL PROTEIN 6.4 g/dL (6.3-8.2)
[2020-01-14 11:57] LABS: POLYCHROMASIA SLIGHT
[2020-01-14 11:58] LABS: ANISOCYTOSIS 4+; HYPOCHROMASIA SLIGHT; PLATELET COMMENT DECREASED
[2020-01-14] MEDS ORDERED: VANCOMYCIN HCL INJ 1000 MG VIAL IV ONE (13:05)
[2020-01-14] MEDS ORDERED: AZTREONAM INJ 1 GM VIAL IV ONE (13:07)
[2020-01-14 13:21] LABS: VENOUS BLOOD BASE EXCESS -8.3 mmol/L; VENOUS BLOOD HCO3 17.4 mmol/L (20-32); VENOUS BLOOD PCO2 36.1 mmHg (35-63); VENOUS BLOOD PH 7.3 (7.30-7.42)
[2020-01-14] MEDS ORDERED: NORMAL SALINE 1000 ML 1,000 ML IV ONE ×2 (13:48→15:55)
--- NOTE | 2020-01-14 13:55 | ER Document Report ---
ED General - General Chief Complaint: Cough Stated Complaint: POSSIBLE SEPSIS Time Seen by Provider: 01/14/20 12:50 Information source: Patient TRAVEL OUTSIDE OF THE [place] IN LAST 30 DAYS: No - HPI Notes: Patient is brought in by family for weakness and cough. Patient did have 4 episodes of vomiting several days ago but none today. Patient has been progressively weaker over the last several days. Also she is had a nonproductive cough. Her symptoms have been intermittent. They have been moderate to severe. They are worse with exertion and better with rest. There is no radiation of the symptoms. No known fever or chills. Patient has had some loose stool. No known rashes. Patient has dementia and is a poor historian. Most of history is obtained from daughter and who are at bedside. - Related Data Allergies/Adverse Reactions: ciprofloxacin [From Cipro] Allergy (Verified 03/27/18 08:58) codeine [Codeine] Allergy (Verified 03/27/18 08:58) erythromycin base [Erythromycin Base] Allergy (Verified 03/27/18 08:58) Penicillins Allergy (Verified 03/27/18 08:58) sulfamethoxazole [Sulfamethoxazole] Allergy (Verified 03/27/18 08:58) Tetanus Vaccines and Toxoid [Tetanus] Allergy (Verified 03/27/18 08:58) trimethoprim [From Bactrim DS] Allergy (Verified 03/27/18 08:58) GAS PAIN Past Medical History - General Information source: Relative - Social History Smoking Status: Former Smoker Chew tobacco use (# tins/day): No Frequency of alcohol use: None Drug Abuse: None Family History: Reviewed & Not Pertinent, Hypertension Patient has suicidal ideation: No Patient has homicidal ideation: No - Past Medical History Cardiac Medical History: Reports: Hx Heart Attack - mild, Hx Hypercholesterolemia, Hx Hypertension Denies: Hx Coronary Artery Disease Pulmonary Medical History: Reports: Hx Asthma, Hx Bronchitis Denies: Hx COPD, Hx Pneumonia Neurological Medical History: Denies: Hx Cerebrovascular Accident, Hx Seizures Endocrine Medical History: Reports: Hx Diabetes Mellitus Type 2 Renal/ Medical History: Denies: Hx Peritoneal Dialysis GI Medical History: Reports: Hx Gastroesophageal Reflux Disease Musculoskeletal Medical History: Reports Hx Arthritis, Reports Hx Gout Psychiatric Medical History: Reports: Hx Anxiety - Benzodiazepine dependency, continuous, Hx Dementia, Hx Depression Infectious Medical History: Past Surgical History: Reports: Hx Appendectomy, Hx Cholecystectomy, Hx Hysterectomy - Immunizations Hx Diphtheria, Pertussis, Tetanus Vaccination: No Review of Systems - Review of Systems -: Yes ROS unobtainable due to patient's medical condition - Cannot obtain review of symptoms due to dementia Physical Exam - Vital signs Vitals: Resp 21 H 01/14/20 10:54 Interpretation: Normal - General General appearance: Alert, Anxious - HEENT Head: Normocephalic, Atraumatic Eyes: Normal Pupils: PERRL - Respiratory Respiratory status: No respiratory distress Chest status: Nontender Breath sounds: Normal Chest palpation: Normal - Cardiovascular Rhythm: Regular Heart sounds: Normal auscultation Murmur: No - Abdominal Inspection: Normal Distension: No distension Bowel sounds: Normal Tenderness: Nontender Organomegaly: No organomegaly - Back Back: Normal, Nontender - Extremities General upper extremity: Normal inspection, Nontender, Normal color, Normal ROM, Normal temperature General lower extremity: Normal inspection, Nontender, Normal color, Normal ROM, Normal temperature, Normal weight bearing. No: Angella's sign - Neurological Cognition: Confused Orientation: Disoriented to place, Disoriented to time [place] Coma Scale Eye Opening: Spontaneous [place] Coma Scale Verbal: Confused [place] Coma Scale Motor: Obeys Commands [place] Coma Scale Total: 14 Speech: Normal Motor strength normal: LUE, RUE, LLE, RLE Sensory: Normal - Psychological Associated symptoms: Agitated, Confused, Depressed - Skin Skin Temperature: Warm Skin Moisture: Dry Skin Color: Normal Course - Re-evaluation Re-evalutation: 01/14/20 13:59 Patient presents with severe weakness and cough. X-ray is clear white count is only mildly elevated. Rectal temperature was normal. However patient may have an occult infection as urinalysis is also not returned yet. Therefore I of cover the patient with antibiotics. Patient also appears significantly dehydrated with a lactate of 4 and a creatinine of 5. Therefore she is being resuscitated with multiple liters of IV fluids. I have contacted the hospitalist for admission. - Vital Signs Vital signs: Temp Pulse Resp BP Pulse Ox 98.6 F 23 H 105/53 L 100 01/14/20 11:25 01/14/20 12:01 01/14/20 12:01 01/14/20 10:57 - Laboratory Result Diagrams: 01/14/20 11:10 01/14/20 11:10 Laboratory results interpreted by me: 02/19/20 02/19/20 02/19/20 11:04 11:10 11:10 WBC 10.7 H RBC 3.20 L Hgb 8.1 L Hct 26.5 L MCH 25.4 L MCHC 30.7 L RDW 28.0 H Plt Count 121 L Lymph % (Auto) 7.5 L Absolute Neuts (auto) 8.6 H Seg Neutrophils % 80.4 H PT 15.9 H VBG HCO3 Chloride Carbon Dioxide BUN Creatinine Est GFR ( Amer) Est GFR (MDRD) Non-Af Glucose POC Glucose 247 H Lactic Acid Magnesium AST Alkaline Phosphatase 01/14/20 01/14/20 01/14/20 11:10 11:10 11:10 WBC RBC Hgb Hct MCH MCHC RDW Plt Count Lymph % (Auto) Absolute Neuts (auto) Seg Neutrophils % PT VBG HCO3 Chloride 112 H Carbon Dioxide 17 L BUN 56 H Creatinine 5.11 H Est GFR ( Amer) 10 L Est GFR (MDRD) Non-Af 8 L Glucose 224 H POC Glucose Lactic Acid 4.1 H Magnesium 3.0 H AST 57 H Alkaline Phosphatase 147 H 01/14/20 01/14/20 12:57 12:57 WBC RBC Hgb Hct MCH MCHC RDW Plt Count Lymph % (Auto) Absolute Neuts (auto) Seg Neutrophils % PT VBG HCO3 17.4 L Chloride Carbon Dioxide BUN Creatinine Est GFR ( Amer) Est GFR (MDRD) Non-Af Glucose POC Glucose Lactic Acid 2.8 H Magnesium AST Alkaline Phosphatase - Diagnostic Test Radiology reviewed: Image reviewed, Reports reviewed Discharge - Discharge Clinical Impression: Dehydration Acute renal failure Qualifiers: Acute renal failure type: unspecified Qualified Code(s): N17.9 - Acute kidney failure, unspecified Condition: Fair Disposition: ADMITTED INPATIENT Admitting Provider: Inna (Hospitalist) Unit Admitted: [facility]
[2020-01-14] MEDS ORDERED: ACETAMINOPHEN 325 MG TABLET PO ONE (14:34)
[2020-01-14] MEDS: NORMAL SALINE 1000 ML 1,000 ML IV PRN ×2 (15:20→17:41)
--- NOTE | 2020-01-14 15:30 | PDOC H&P ---
History of Present Illness Admission Date/PCP: 01/14/20 14:18 Patient complains of: Progressive weakness with cough and clear sputum production History of Present Illness: ANGIE WALKER is a 79 year old female who was noted to have a cough several days ago. She was coughing up very little bits of clear mucus. She denied any fever or shaking chills prior to presenting to the emergency department but she did have a fever of 101.2 during her evaluation. Today she was extremely weak and with this change the family felt it appropriate to bring her to the emergency department. She did have a minimally elevated white blood count. Chest x-ray showed what they believed to be chronic interstitial lung disease. More importantly she showed marked kidney injury with severe dehydration. She does have underlying dementia and this critical illness is having a significant negative impact on her. She is miserable. She makes little eye contact. She clearly appears ill. With the current clinical condition as well as acute kidney injury and lactic acidemia the patient was referred to the hospitalist service for admission. Past Medical History Cardiac Medical History: Reports: Myocardial Infarction - mild, Hyperlipidema, Hypertension Denies: Coronary Artery Disease Pulmonary Medical History: Reports: Asthma, Bronchitis Denies: Chronic Obstructive Pulmonary Disease (COPD), Pneumonia Neurological Medical History: Denies: Seizures Endocrine Medical History: Reports: Diabetes Mellitus Type 2 GI Medical History: Reports: Gastroesophageal Reflux Disease Musculoskeltal Medical History: Reports: Arthritis, Gout Psychiatric Medical History: Reports: Dementia, Depression Hematology: Denies: Anemia Past Surgical History Past Surgical History: Reports: Appendectomy, Cholecystectomy, Hysterectomy Social History Information Source: Relative, [facility] Records Lives with: Family Smoking Status: Former Smoker Electronic Cigarette use?: No Frequency of Alcohol Use: None Hx Recreational Drug Use: No Hx Prescription Drug Abuse: No - Advance Directive Resuscitation Status: Do Not Resuscitate Surrogate healthcare decision maker:: The patient's would be the decision maker. He is present at the bedside. Family History Family History: Reviewed & Not Pertinent, Hypertension, Other - Congestive heart failure Parental Family History Reviewed: Yes Children Family History Reviewed: Yes Sibling(s) Family History Reviewed.: Yes Medication/Allergy Home Medications: Allopurinol [Zyloprim 100 mg Tablet] 100 mg PO DAILY 01/14/20 Alprazolam [Xanax] 0.5 mg PO BID 01/14/20 Donepezil HCl [Aricept 5 mg Tablet] 5 mg PO QHS 01/14/20 Ferrous Sulfate [Feosol 325 mg Tablet] 325 mg PO BID 01/14/20 Fluoxetine HCl [Prozac 20 mg Capsule] 20 mg PO QAM 01/14/20 Fluticasone Propionate [Flonase Nasal [place] 50 Mcg/[place] 16 gm] 1 spray NASL DAILYP PRN 01/14/20 Furosemide [Lasix 40 mg Tablet] 40 mg PO TUTH@1000 01/14/20 Memantine HCl [Namenda 10 mg Tablet] 10 mg PO BID 01/14/20 Metoprolol Tartrate [Lopressor 50 mg Tablet] 50 mg PO Q12 01/14/20 Olmesartan Medoxomil [Benicar] 20 mg PO DAILY 01/14/20 Pantoprazole Sodium [Protonix [address] Tablet] 40 mg PO BID 01/14/20 Potassium Chloride [Klor-Con 10 Meq Tablet ER] 10 meq PO TUTH@1000 01/14/20 Rosuvastatin Calcium [Crestor] 20 mg PO DAILY 01/14/20 Sodium Bicarbonate [Sodium Bicarbonate 650 mg Tablet] 1,300 mg PO BID 01/14/20 Allergies/Adverse Reactions: ciprofloxacin [From Cipro] Allergy (Verified 03/27/18 08:58) codeine [Codeine] Allergy (Verified 03/27/18 08:58) erythromycin base [Erythromycin Base] Allergy (Verified 03/27/18 08:58) Penicillins Allergy (Verified 03/27/18 08:58) sulfamethoxazole [Sulfamethoxazole] Allergy (Verified 03/27/18 08:58) Tetanus Vaccines and Toxoid [Tetanus] Allergy (Verified 03/27/18 08:58) trimethoprim [From Bactrim DS] Allergy (Verified 03/27/18 08:58) GAS PAIN Review of Systems ROS unobtainable: Due to mental status Review of Systems: Some information obtained from family members present. Constitutional: PRESENT: anorexia Respiratory: PRESENT: cough, dyspnea, sputum. ABSENT: hemoptysis Neurological: PRESENT: memory loss - Patient has underlying dementia, weakness Physical Exam Vital Signs: Temp Pulse Resp BP Pulse Ox 98.6 F 23 H 105/53 L 100 01/14/20 11:25 01/14/20 12:01 01/14/20 12:01 01/14/20 10:57 Intake & Output 01/13/20 01/14/20 01/15/20 06:59 06:59 06:59 Intake Total 1000 Balance 1000 Weight 82 kg General appearance: PRESENT: cooperative - Somewhat limited cooperation due to her clinical state, mild distress - Mild to moderate distress, well-developed Head exam: PRESENT: atraumatic, normocephalic Eye exam: PRESENT: conjunctiva pale, EOMI. ABSENT: scleral icterus Ear exam: PRESENT: normal external ear exam. ABSENT: bleeding, drainage Neck exam: ABSENT: carotid bruit, JVD, lymphadenopathy Respiratory exam: PRESENT: prolonged expiratory phas, rhonchi - Sparse rhonchi noted both lower lung [place], symmetrical, tachypnea, unlabored. ABSENT: rales, wheezes Cardiovascular exam: PRESENT: RRR, +S1, +S2, other - Decreased heart sounds. Somewhat difficult to auscultate due to congested breath sounds GI/Abdominal exam: PRESENT: hypoactive bowel sounds, soft. ABSENT: distended, guarding, tenderness Rectal exam: PRESENT: deferred Extremities exam: ABSENT: joint swelling, pedal edema Musculoskeletal exam: PRESENT: normal inspection. ABSENT: deformity, tenderness Neurological exam: PRESENT: alert, awake, oriented to person, oriented to place, oriented to situation, CN II-XII grossly intact Psychiatric exam: PRESENT: appropriate affect - Affect reflects her current clinical condition. ABSENT: agitated, anxious Results Laboratory Results: 01/14/20 11:10 01/14/20 11:10 01/14/20 01/14/20 01/14/20 11:10 11:10 11:10 WBC 10.7 H RBC 3.20 L Hgb 8.1 L Hct 26.5 L MCV 83 MCH 25.4 L MCHC 30.7 L RDW 28.0 H Plt Count 121 L Seg Neutrophils % 80.4 H VBG pH VBG pCO2 VBG HCO3 VBG Base Excess Sodium 144.3 Potassium 4.8 Chloride 112 H Carbon Dioxide 17 L Anion Gap 15 BUN 56 H Creatinine 5.11 H Est GFR ( Amer) 10 L Glucose 224 H Lactic Acid 4.1 H Calcium 9.3 Magnesium Total Bilirubin 0.5 AST 57 H Alkaline Phosphatase 147 H Total Protein 6.4 Albumin 3.7 01/14/20 01/14/20 01/14/20 11:10 12:57 12:57 WBC RBC Hgb Hct MCV MCH MCHC RDW Plt Count Seg Neutrophils % VBG pH 7.30 VBG pCO2 36.1 VBG HCO3 17.4 L VBG Base Excess -8.3 Sodium Potassium Chloride Carbon Dioxide Anion Gap BUN Creatinine Est GFR ( Amer) Glucose Lactic Acid 2.8 H Calcium Magnesium 3.0 H Total Bilirubin AST Alkaline Phosphatase Total Protein Albumin 01/14/20 11:10 Troponin I 0.014 Impressions: Chest X-Ray 01/14/20 10:57 IMPRESSION: Stable chest. No acute findings. Suspect chronic interstitial lung disease. Assessment and Plan - Diagnosis (1) Sepsis Qualifiers: Sepsis type: sepsis due to unspecified organism Sepsis acute organ dysfunction status: with acute organ dysfunction Severe sepsis acute organ dysfunction type: acute renal failure Acute renal failure type: with acute tubular necrosis Severe sepsis shock status: without septic shock Qualified Code(s): A41.9 - Sepsis, unspecified organism; R65.20 - Severe sepsis without septic shock; N17.0 - Acute kidney failure with tubular necrosis Is this a current diagnosis for this admission?: Yes (2) Acute kidney injury superimposed on chronic kidney disease Is this a current diagnosis for this admission?: Yes (3) Metabolic encephalopathy Is this a current diagnosis for this admission?: Yes (4) Dehydration Is this a current diagnosis for this admission?: Yes (5) Lactic acidemia Is this a current diagnosis for this admission?: Yes (6) Thrombocytopenia Is this a current diagnosis for this admission?: Yes (7) Hyperglycemia due to type 2 diabetes mellitus 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: without care 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 use Qualified Code(s): E11.65 - Type 2 diabetes mellitus with hyperglycemia Is this a current diagnosis for this admission?: Yes (8) Dementia Qualifiers: Dementia type: Alzheimer's disease Alzheimer's disease onset: unspecified onset Dementia behavioral disturbance: without behavioral disturbance Qualified Code(s): G30.9 - Alzheimer's disease, unspecified; F02.80 - Dementia in other diseases classified elsewhere without behavioral disturbance Is this a current diagnosis for this admission?: Yes (9) Asthma Qualifiers: Asthma severity: mild Asthma persistence: intermittent Asthma complication type: with acute exacerbation Qualified Code(s): J45.21 - Mild intermittent asthma with (acute) exacerbation Is this a current diagnosis for this admission?: Yes (10) Hypertension Qualifiers: Hypertension type: essential hypertension Qualified Code(s): I10 - Essential (primary) hypertension Is this a current diagnosis for this admission?: Yes (11) Major depression Qualifiers: Major depression recurrence: recurrent Active/Remission status: currently active Major depression episode severity: moderate Qualified Code(s): F33.1 - Major depressive disorder, recurrent, moderate Is this a current diagnosis for this admission?: Yes (12) Iron deficiency anemia Qualifiers: Iron deficiency anemia type: inadequate dietary iron intake Qualified Code(s): D50.8 - Other iron deficiency anemias Is this a current diagnosis for this admission?: Yes (13) Gout Qualifiers: Gout site: unspecified site Gout etiology: unspecified cause Chronicity: chronic Presence of tophus: without tophus Qualified Code(s): M1A.9XX0 - Chronic gout, unspecified, without tophus (tophi) Is this a current diagnosis for this admission?: Yes (14) Hyperlipidemia Qualifiers: Hyperlipidemia type: unspecified Qualified Code(s): E78.5 - Hyperlipidemia, unspecified Is this a current diagnosis for this admission?: Yes - Plan Summary Summary: 01/14/2020 The patient meets sepsis criteria due to the metabolic encephalopathy likely secondary to infection. She also has acute thrombocytopenia as well as acute on chronic kidney injury. She did exhibit a minimally elevated white blood cell count as well as an abnormal chest x-ray. The patient was put on broad-spectrum antibiotic therapy. Blood and urine cultures are pending. Acute on chronic kidney injury with dehydration and likely secondary to sepsis with acute tubular necrosis-the patient exhibits a marked decrease in renal function with significantly elevated BUN and creatinine. She does see nephrology locally and I will have Dr. Carmona consult. I believe she is very dehydrated and we are giving her aggressive fluids for the sepsis as well as the kidney failure. We will continue to monitor her renal function. Lactic acidemia-lactic acid levels are elevated. The patient was given multiple boluses of fluid and we will continue to monitor lactic acid levels. Metabolic encephalopathy secondary to infection with underlying dementia-contin ue current medications for dementia and will have as needed medication available for sundowning or agitation. Asthma-the patient has underlying asthma. She will be given nebulizer treatments but fortunately she is not hypoxic. Diabetes mellitus-there were no medications listed on her home medication list and we will monitor Accu-Cheks and utilize sliding scale coverage Iron deficiency anemia-it is more likely combination of iron deficiency anemia and anemia of chronic kidney disease. We will continue to monitor hemoglobin levels. Hypertension-the patient fortunately is not exhibiting hypotension/shock. We will continue antihypertensive medications with parameters to hold for low blood pressure. We will also continue the allopurinol for gout and statin therapy for her hyperlipidemia. Depression-we will continue the patient's SSRI medication. Because of the severity of the patient's illness she will be admitted to IM and monitored by telemetry and pulse oximetry in addition to routine vital signs, intake and output. - Time Time Spent with patient: 35 or more minutes Medications reviewed and adjusted accordingly: Yes - Inpatient Certification Based on my medical assessment, after consideration of the patient's comorbidities, presenting symptoms, or acuity I expect that the services needed warrant INPATIENT care.: Yes I certify that my determination is in accordance with my understanding of Medicare's requirements for reasonable and necessary INPATIENT services [42 CFR 412.3e].: Yes Medical Necessity: Need For IV Fluids, Need For Continuous Telemetry Monitoring, Need for Nebulizer Therapy and Monitoring of Response, Need for IV Antibiotics Post Hospital Care: D/C Registered Dietician Documentation
[2020-01-14] MEDS ORDERED: ONDANSETRON HCL INJ/PF 4 MG/2 ML SDV IV PRN (15:32)
[2020-01-14] MEDS ORDERED: ACETAMINOPHEN 650 MG SUPP.RECT PR PRN (15:32)
[2020-01-14] MEDS ORDERED: ONDANSETRON 4 MG TAB.RAPDIS PO PRN (15:32)
[2020-01-14] MEDS ORDERED: IPRATROPIUM/ALBUTEROL 0.5-2.5 MG/3 ML AMPUL NEB PRN (15:32)
[2020-01-14] MEDS ORDERED: ACETAMINOPHEN 325 MG TABLET PO PRN (15:32)
[2020-01-14] MEDS ORDERED: DOCUSATE SODIUM 100 MG CAPSULE PO PRN (15:32)
[2020-01-14] MEDS ORDERED: PHARMACY COMMUNICATION ORDER MC NR (15:45)
[2020-01-14] MEDS ORDERED: VANCOMYCIN HCL 0 MG in DEXTROSE 5%-WATER 250 ML IV NR (15:45)
[2020-01-14] MEDS ORDERED: FLUTICASONE NASAL SPRAY 50 MCG/SPRY 120 SPRAY/16 GM NASL PRN (15:46)
[2020-01-14] MEDS ORDERED: PROMETHAZINE HCL INJ 25 MG/1 ML VIAL IV PRN (15:49)
[2020-01-14 17:25] LABS: AMORPHOUS SEDIMENT,URINE TRACE /HPF; APPEARANCE,URINE CLOUDY; BILIRUBIN,URINE NEGATIVE (NEGATIVE); COLOR,URINE AMBER; GLUCOSE, URINE NEGATIVE (NEGATIVE); KETONES,URINE NEGATIVE (NEGATIVE); PROTEIN,URINE 100 mg/dL (NEGATIVE); URINE SPECIFIC GRAVITY 1.017; UROBILINOGEN,URINE NEGATIVE mg/dL (<2.0)
[2020-01-14] MEDS ORDERED: (PENDING PHARMACY ID) (Alprazolam [Xanax] 0.5 MG) PO SCH (18:00)
[2020-01-14] MEDS ORDERED: INFLUENZA QUAD (6MOS+) 2019-20 VAC 0.5 ML SYR IM ONE (18:52)
[2020-01-14] MEDS: PANTOPRAZOLE SODIUM 40 MG TABLET.DR PO SCH (19:19)
[2020-01-14] MEDS: FERROUS SULFATE 325 MG TABLET PO SCH (19:19)
[2020-01-14] MEDS: SODIUM BICARBONATE 650 MG TABLET PO SCH (19:19)
[2020-01-14] MEDS ORDERED: AZTREONAM 1 GM in DEXTROSE 5%-WATER 50 ML IV SCH (22:00)
[2020-01-14] MEDS: MEMANTINE HCL 10 MG TABLET PO SCH (22:41)
[2020-01-14] MEDS: METOPROLOL TARTRATE 50 MG TABLET PO SCH (22:41)
[2020-01-14] MEDS: DONEPEZIL HCL 5 MG TABLET PO SCH (22:41)
[2020-01-14] MEDS: ALPRAZOLAM 0.5 MG TABLET PO SCH (22:41)
[2020-01-14] MEDS: HEPARIN SOD (PORCINE) 5,000 UNIT/ML 1 ML VIAL SUBCUT SCH (22:42)
[2020-01-15] MEDS: NORMAL SALINE 1000 ML 1,000 ML IV PRN ×3 (00:22→23:02)
[2020-01-15] MEDS: AZTREONAM 0.25 GM in DEXTROSE 5%-WATER 50 ML IV SCH ×3 (01:45→17:55)
[2020-01-15 06:20] LABS: ALBUMIN 2.7 g/dL (3.5-5.0); ANION GAP 11 (5-19); BLOOD UREA NITROGEN 46 mg/dL (7-20); CALCIUM 8.5 mg/dL (8.4-10.2); CARBON DIOXIDE 15 mmol/L (22-30); CHLORIDE 117 mmol/L (98-107); GLUCOSE 144 mg/dL (75-110); PHOSPHORUS 4.6 mg/dL (2.5-4.5); POTASSIUM 3.9 mmol/L (3.6-5.0)
[2020-01-15] MEDS: HEPARIN SOD (PORCINE) 5,000 UNIT/ML 1 ML VIAL SUBCUT SCH ×3 (07:32→22:55)
[2020-01-15] MEDS: FLUOXETINE HCL 20 MG CAPSULE PO SCH (08:16)
[2020-01-15 08:23] LABS: ABSOLUTE BASOPHILS # (AUTO) 0.1 10^3/uL (0.0-0.2); ABSOLUTE EOSINOPHILS # (AUTO) 0.1 10^3/uL (0.0-0.6); ABSOLUTE NEUT (AUTO) 4.3 10^3/uL (1.7-8.2); BASOPHILS % (AUTO) 0.8 % (0-2); EOSINOPHILS % (AUTO) 1.8 % (0-6); HEMATOCRIT 20.8 % (36.0-47.0); MEAN CORPUSCULAR HEMOGLOBIN 26.3 pg (27.0-33.4); MEAN CORPUSCULAR HGB CONC 31.2 g/dL (32.0-36.0); MEAN CORPUSCULAR VOLUME 84 fl (80-97); RED BLOOD COUNT 2.48 10^6/uL (3.72-5.28); RED CELL DISTRIBUTION WIDTH 29.2 % (11.5-14.0); SEGMENTED NEUTROPHILS % (AUTO) 66.4 % (42-78); TOTAL CELLS COUNTED % (AUTO) 100 %; WHITE BLOOD COUNT 6.5 10^3/uL (4.0-10.5)
[2020-01-15 08:53] LABS: PLATELET COUNT 84 10^3/uL (150-450)
[2020-01-15] MEDS ORDERED: ACETAMINOPHEN 325 MG TABLET PO PRN (08:55)
[2020-01-15] MEDS ORDERED: ACETAMINOPHEN 650 MG SUPP.RECT PR PRN (08:55)
[2020-01-15 08:59] LABS: ANISOCYTOSIS 4+; HYPOCHROMASIA SLIGHT; PLATELET COMMENT DECREASED; TARGET CELLS SLIGHT
[2020-01-15 09:02] LABS: HEMOGLOBIN 6.5 g/dL (12.0-15.5)
[2020-01-15] MEDS: FERROUS SULFATE 325 MG TABLET PO SCH (09:39)
[2020-01-15] MEDS: ALPRAZOLAM 0.5 MG TABLET PO SCH ×2 (09:40→22:59)
[2020-01-15] MEDS: SODIUM BICARBONATE 650 MG TABLET PO SCH ×2 (09:40→17:55)
[2020-01-15] MEDS: METOPROLOL TARTRATE 50 MG TABLET PO SCH (09:40)
[2020-01-15] MEDS: ALLOPURINOL 100 MG TABLET PO SCH (09:40)
[2020-01-15] MEDS: PANTOPRAZOLE SODIUM 40 MG TABLET.DR PO SCH ×2 (09:40→17:55)
[2020-01-15] MEDS: MEMANTINE HCL 10 MG TABLET PO SCH ×2 (09:40→22:59)
--- NOTE | 2020-01-15 09:41 | PDOC PROGRESS REPORT ---
Subjective Progress Note for:: 01/15/20 Reason For Visit: PNEUMONIA,ACUTE ON CHRONIC KIDNEY FAILURE, Physical Exam Vital Signs: Temp Pulse Resp BP Pulse Ox 98.7 F 72 18 130/45 H 96 01/15/20 07:27 01/15/20 07:27 01/15/20 07:27 01/15/20 07:27 01/15/20 07:27 Intake & Output 01/14/20 01/15/20 01/16/20 06:59 06:59 06:59 Intake Total 3858 1100 Output Total 200 500 Balance 3658 600 Weight 83.5 kg Results Laboratory Results: 01/15/20 07:52 01/15/20 05:09 01/14/20 01/14/20 01/14/20 11:10 11:10 11:10 WBC 10.7 H RBC 3.20 L Hgb 8.1 L Hct 26.5 L MCV 83 MCH 25.4 L MCHC 30.7 L RDW 28.0 H Plt Count 121 L Seg Neutrophils % 80.4 H VBG pH VBG pCO2 VBG HCO3 VBG Base Excess Sodium 144.3 Potassium 4.8 Chloride 112 H Carbon Dioxide 17 L Anion Gap 15 BUN 56 H Creatinine 5.11 H Est GFR ( Amer) 10 L Glucose 224 H Lactic Acid 4.1 H Calcium 9.3 Phosphorus Magnesium Total Bilirubin 0.5 AST 57 H Alkaline Phosphatase 147 H Total Protein 6.4 Albumin 3.7 Urine Color Urine Appearance Urine pH Ur Specific [place] Urine Protein Urine Glucose (UA) Urine Ketones Urine Blood Urine RBC (Auto) 01/14/20 01/14/20 01/14/20 11:10 12:57 12:57 WBC RBC Hgb Hct MCV MCH MCHC RDW Plt Count Seg Neutrophils % VBG pH 7.30 VBG pCO2 36.1 VBG HCO3 17.4 L VBG Base Excess -8.3 Sodium Potassium Chloride Carbon Dioxide Anion Gap BUN Creatinine Est GFR ( Amer) Glucose Lactic Acid 2.8 H Calcium Phosphorus Magnesium 3.0 H Total Bilirubin AST Alkaline Phosphatase Total Protein Albumin Urine Color Urine Appearance Urine pH Ur Specific [place] Urine Protein Urine Glucose (UA) Urine Ketones Urine Blood Urine RBC (Auto) 01/14/20 01/14/20 01/15/20 13:23 17:08 05:09 WBC Cancelled RBC Cancelled Hgb Cancelled Hct Cancelled MCV Cancelled MCH Cancelled MCHC Cancelled RDW Cancelled Plt Count Cancelled Seg Neutrophils % Cancelled VBG pH VBG pCO2 VBG HCO3 VBG Base Excess Sodium Potassium Chloride Carbon Dioxide Anion Gap BUN Creatinine Est GFR ( Amer) Glucose Lactic Acid 2.6 H Calcium Phosphorus Magnesium Total Bilirubin AST Alkaline Phosphatase Total Protein Albumin Urine Color DAVIE Urine Appearance CLOUDY Urine pH 6.0 Ur Specific [place] 1.017 Urine Protein 100 H Urine Glucose (UA) NEGATIVE Urine Ketones NEGATIVE Urine Blood LARGE H Urine RBC (Auto) 3 01/15/20 01/15/20 01/15/20 05:09 05:09 07:52 WBC 6.5 RBC 2.48 L Hgb 6.5 L Hct 20.8 L MCV 84 MCH 26.3 L MCHC 31.2 L RDW 29.2 H Plt Count 84 L Seg Neutrophils % 66.4 VBG pH VBG pCO2 VBG HCO3 VBG Base Excess Sodium 142.5 Potassium 3.9 Chloride 117 H Carbon Dioxide 15 L Anion Gap 11 BUN 46 H Creatinine 3.76 H Est GFR ( Amer) 14 L Glucose 144 H Lactic Acid 1.8 Calcium 8.5 Phosphorus 4.6 H Magnesium 2.3 Total Bilirubin AST Alkaline Phosphatase Total Protein Albumin 2.7 L Urine Color Urine Appearance Urine pH Ur Specific [place] Urine Protein Urine Glucose (UA) Urine Ketones Urine Blood Urine RBC (Auto) 01/14/20 11:10 Troponin I 0.014 Impressions: Chest X-Ray 01/14/20 10:57 IMPRESSION: Stable chest. No acute findings. Suspect chronic interstitial lung disease.
[2020-01-15] MEDS ORDERED: NORMAL SALINE 250 ML IV PRN ×2 (09:46)
[2020-01-15 10:16] LABS: ABSOLUTE RETICS # 0.067 10^6/uL (0.028-0.122); RETICULOCYTE COUNT (AUTO) 2.64 % (0.66-2.85)
[2020-01-15 10:47] LABS: IRON(TIBC) 16.4 ug/dL (37-170)
[2020-01-15 11:54] LABS: FOLATE 9.33 ng/mL (>2.76)
--- NOTE | 2020-01-15 12:27 | PDOC CONSULTATION ---
Consultation Consult Date: 01/15/20 Provider Consulted: Tim HANNON Consult reason:: FANNY on CKD 3/4. History of Present Illness Admission Date/PCP: 01/14/20 14:18 History of Present Illness: ANIGE WALKER is a 79 year old female with a past medical history significant for diabetes mellitus, hypertension, dementia, gout/arthritis, CKD with a base creatinine of 1.2-1.6. was admitted with history of altered mental status and progressive weakness over the last few days. Patient is not completely with it and unable to give a meaningful history. Therefore discussions were done with the treating nurse [place] as well as chart review. Her baseline creatinine was as mentioned 1.2-1.6 and went up to 3.4 on the of this month. Her hemoglobin is always been around 13 till about May 2019 and then the tests we have had send from her pcp showsa a gradual beginning to drop into the tens and 9 and on 07 January was down to 7.4. She is unable to give me a history of any active GI bleeds. She is unsure of whether she has had a colonoscopy. Review of my outpatient notes also mentions that she has had a colonoscopy but she was unable to remember the dates. Current labs and medications were reviewed. Her current hemoglobin is dropped to 6.5. Her blood pressure is also slightly lower than what was on admission. Discussions were done the treating nurse. Past Medical History Cardiac Medical History: Reports: Hyperlipidemia, Hypertension-primary, Myocardial Infarction - mild Denies: Coronary Artery Disease Pulmonary Medical History: Reports: Asthma, Bronchitis Denies: Chronic Obstructive Pulmonary Disease (COPD), Pneumonia Neurological Medical History: Denies: Seizures Endocrine Medical History: Reports: Diabetes Mellitus Type 2 Renal/ Medical History: Reports: Chronic Kidney Disease Stage III GI Medical History: Reports: Gastroesophageal Reflux Disease Musculoskeltal Medical History: Reports: Arthritis, Gout Psychiatric Medical History: Reports: Dementia, Depression Past Surgical History Past Surgical History: Reports: Appendectomy, Cholecystectomy, Hysterectomy Social History Smoking Status: Former Smoker Electronic Cigarette use?: No Frequency of Alcohol Use: None Hx Recreational Drug Use: No Drugs: None Hx Prescription Drug Abuse: No - Advance Directive Resuscitation Status: Do Not Resuscitate Family History Parental Family History Reviewed: No Children Family History Reviewed: No Sibling(s) Family History Reviewed.: No Medication/Allergy Home Medications: Allopurinol [Zyloprim 100 mg Tablet] 100 mg PO DAILY 01/14/20 Alprazolam [Xanax] 0.5 mg PO BID 01/14/20 Donepezil HCl [Aricept 5 mg Tablet] 5 mg PO QHS 01/14/20 Ferrous Sulfate [Feosol 325 mg Tablet] 325 mg PO BID 01/14/20 Fluoxetine HCl [Prozac 20 mg Capsule] 20 mg PO QAM 01/14/20 Fluticasone Propionate [Flonase Nasal Chelsea 50 Mcg/Chelsea 16 gm] 1 spray NASL DAILYP PRN 01/14/20 Furosemide [Lasix 40 mg Tablet] 40 mg PO TUTH@1000 01/14/20 Memantine HCl [Namenda 10 mg Tablet] 10 mg PO BID 01/14/20 Metoprolol Tartrate [Lopressor 50 mg Tablet] 50 mg PO Q12 01/14/20 Olmesartan Medoxomil [Benicar] 20 mg PO DAILY 01/14/20 Pantoprazole Sodium [Protonix [address] Tablet] 40 mg PO BID 01/14/20 Potassium Chloride [Klor-Con 10 Meq Tablet ER] 10 meq PO TUTH@1000 01/14/20 Rosuvastatin Calcium [Crestor] 20 mg PO DAILY 01/14/20 Sodium Bicarbonate [Sodium Bicarbonate 650 mg Tablet] 1,300 mg PO BID 01/14/20 Allergies/Adverse Reactions: ciprofloxacin [From Cipro] Allergy (Verified 03/27/18 08:58) codeine [Codeine] Allergy (Verified 03/27/18 08:58) erythromycin base [Erythromycin Base] Allergy (Verified 03/27/18 08:58) Penicillins Allergy (Verified 03/27/18 08:58) sulfamethoxazole [Sulfamethoxazole] Allergy (Verified 03/27/18 08:58) Tetanus Vaccines and Toxoid [Tetanus] Allergy (Verified 03/27/18 08:58) trimethoprim [From Bactrim DS] Allergy (Verified 03/27/18 08:58) GAS PAIN Review of Systems ROS unobtainable: Due to mental status Constitutional: PRESENT: anorexia, fatigue, weakness. ABSENT: chills, fever(s), headache(s), night sweats Nose, Mouth, and Throat: ABSENT: mouth pain, sore throat Cardiovascular: ABSENT: edema, orthropnea, palpitations Respiratory: ABSENT: dyspnea, hemoptysis Gastrointestinal: ABSENT: diarrhea, dysphagia Integumentary: ABSENT: lesions, pruritus Neurological: ABSENT: abnormal gait, abnormal movements, frequent falls Physical Exam Vital Signs: Temp Pulse Resp BP Pulse Ox 98.7 F 72 18 130/45 H 96 01/15/20 07:27 01/15/20 07:27 01/15/20 07:27 01/15/20 07:27 01/15/20 07:27 Intake & Output 01/14/20 01/15/20 01/16/20 06:59 06:59 06:59 Intake Total 3858 1100 Output Total 200 500 Balance 3658 600 Weight 83.5 kg General appearance: PRESENT: no acute distress Exam: Patient is confused and unable to give a proper meaningful history. Eye exam: PRESENT: EOMI, PERRLA. ABSENT: scleral icterus Ear exam: PRESENT: normal external ear exam Mouth exam: ABSENT: moist Neck exam: ABSENT: meningismus, tenderness, thyromegaly, tracheal deviation Respiratory exam: PRESENT: clear to auscultation brennan, decreased breath sounds. ABSENT: crackles Cardiovascular exam: PRESENT: +S1, +S2 GI/Abdominal exam: PRESENT: normal bowel sounds, soft. ABSENT: organomegaly, tenderness Extremities exam: ABSENT: pedal edema Neurological exam: PRESENT: altered, awake. ABSENT: oriented to person, oriented to place Psychiatric exam: PRESENT: depressed Skin exam: ABSENT: cyanosis, mottled, rash Results Laboratory Results: 01/15/20 07:52 01/15/20 05:09 01/14/20 01/14/20 01/14/20 11:10 11:10 12:57 WBC 10.7 H RBC 3.20 L Hgb 8.1 L Hct 26.5 L MCV 83 MCH 25.4 L MCHC 30.7 L RDW 28.0 H Plt Count 121 L Seg Neutrophils % 80.4 H Retic Count (auto) VBG pH 7.30 VBG pCO2 36.1 VBG HCO3 17.4 L VBG Base Excess -8.3 Sodium Potassium Chloride Carbon Dioxide Anion Gap BUN Creatinine Est GFR ( Amer) Glucose Lactic Acid Calcium Phosphorus Magnesium 3.0 H Iron TIBC % Saturation Ferritin Albumin Vitamin B12 Folate Urine Color Urine Appearance Urine pH Ur Specific [place] Urine Protein Urine Glucose (UA) Urine Ketones Urine Blood Urine RBC (Auto) 02/01/14/20 01/14/20 12:57 13:23 17:08 WBC RBC Hgb Hct MCV MCH MCHC RDW Plt Count Seg Neutrophils % Retic Count (auto) VBG pH VBG pCO2 VBG HCO3 VBG Base Excess Sodium Potassium Chloride Carbon Dioxide Anion Gap BUN Creatinine Est GFR ( Amer) Glucose Lactic Acid 2.8 H 2.6 H Calcium Phosphorus Magnesium Iron TIBC % Saturation Ferritin Albumin Vitamin B12 Folate Urine Color DAVIE Urine Appearance CLOUDY Urine pH 6.0 Ur Specific [place] 1.017 Urine Protein 100 H Urine Glucose (UA) NEGATIVE Urine Ketones NEGATIVE Urine Blood LARGE H Urine RBC (Auto) 3 01/15/20 01/15/20 01/15/20 05:09 05:09 05:09 WBC Cancelled RBC Cancelled Hgb Cancelled Hct Cancelled MCV Cancelled MCH Cancelled MCHC Cancelled RDW Cancelled Plt Count Cancelled Seg Neutrophils % Cancelled Retic Count (auto) VBG pH VBG pCO2 VBG HCO3 VBG Base Excess Sodium 142.5 Potassium 3.9 Chloride 117 H Carbon Dioxide 15 L Anion Gap 11 BUN 46 H Creatinine 3.76 H Est GFR ( Amer) 14 L Glucose 144 H Lactic Acid 1.8 Calcium 8.5 Phosphorus 4.6 H Magnesium 2.3 Iron TIBC % Saturation Ferritin Albumin 2.7 L Vitamin B12 Folate Urine Color Urine Appearance Urine pH Ur Specific [place] Urine Protein Urine Glucose (UA) Urine Ketones Urine Blood Urine RBC (Auto) 01/15/20 01/15/20 01/15/20 05:09 07:52 07:52 WBC 6.5 RBC 2.48 L Hgb 6.5 L Hct 20.8 L MCV 84 MCH 26.3 L MCHC 31.2 L RDW 29.2 H Plt Count 84 L Seg Neutrophils % 66.4 Retic Count (auto) 2.64 VBG pH VBG pCO2 VBG HCO3 VBG Base Excess Sodium Potassium Chloride Carbon Dioxide Anion Gap BUN Creatinine Est GFR ( Amer) Glucose Lactic Acid Calcium Phosphorus Magnesium Iron 16.4 L TIBC 285 % Saturation 6 Ferritin 37.50 Albumin Vitamin B12 263.0 Folate 9.33 Urine Color Urine Appearance Urine pH Ur Specific [place] Urine Protein Urine Glucose (UA) Urine Ketones Urine Blood Urine RBC (Auto) 01/14/20 11:10 Troponin I 0.014 Impressions: Chest X-Ray 01/14/20 10:57 IMPRESSION: Stable chest. No acute findings. Suspect chronic interstitial lung disease. Assessment & Plan - Diagnosis (1) Acute renal failure Qualifiers: Acute renal failure type: unspecified Qualified Code(s): N17.9 - Acute kidney failure, unspecified Plan: Patient has acute on chronic kidney disease in the setting of ATN from sepsis/gram-negative bacteremia resulting from UTI. Continue IV fluids and antibiotics as now. I would dose medications for GFR of approximately 25 cc/min and the end monitor. No indications for renal replacements. (2) Dehydration Plan: Continue with normal saline. Monitor (3) Diabetes mellitus type II, controlled Plan: As per hospitalist. (4) Hypertension Plan: Controlled. Monitor for progression to septic shock given her gram-negative bacteremia. (5) Urinary tract infection Qualifiers: Urinary tract infection type: acute cystitis Hematuria presence: with hematuria Qualified Code(s): N30.01 - Acute cystitis with hematuria Plan: Cultures are now growing gram-negative rods as well as in the blood. (6) Acute anemia Plan: She has dropped from around 13 in May to her current value of 7-8 in December 2019. Needs to rule out other causes especially GI causes.She has iron deficiency anemia. DC p.o. iron. Consider her for IV iron later during her stay here. (7) Gram-negative bacteremia Plan: Patient on antibiotics. Adjust the dose to GFR of 25 cc/min.
--- NOTE | 2020-01-15 21:33 | PDOC PROGRESS REPORT ---
Subjective Progress Note for:: 01/15/20 Subjective:: The patient in fact is feeling much better. Family are present again today and are pleased with her progress. She reports feeling much better as well. Reason For Visit: PNEUMONIA,ACUTE ON CHRONIC KIDNEY FAILURE, Physical Exam Vital Signs: Temp Pulse Resp BP Pulse Ox 98.4 F 89 16 130/48 H 95 01/15/20 21:02 01/15/20 21:02 01/15/20 21:02 01/15/20 21:02 01/15/20 21:02 Intake & Output 01/14/20 01/15/20 01/16/20 06:59 06:59 06:59 Intake Total 3858 2490 Output Total 200 1075 Balance 3658 1415 Weight 83.5 kg General appearance: PRESENT: no acute distress, cooperative, well-developed Head exam: PRESENT: atraumatic, normocephalic Eye exam: PRESENT: conjunctiva pale. ABSENT: scleral icterus Ear exam: PRESENT: normal external ear exam. ABSENT: bleeding, drainage Mouth exam: PRESENT: moist, tongue midline Respiratory exam: PRESENT: clear to auscultation brennan, symmetrical, unlabored. ABSENT: rales, rhonchi, tachypnea, wheezes Cardiovascular exam: PRESENT: RRR, +S1, +S2 GI/Abdominal exam: PRESENT: normal bowel sounds, soft. ABSENT: distended, guarding, tenderness Rectal exam: PRESENT: deferred Neurological exam: PRESENT: alert, awake, oriented to person, oriented to place, oriented to situation Psychiatric exam: PRESENT: appropriate affect. ABSENT: agitated, anxious Focused psych exam: ABSENT: delusional, restlessness Results Laboratory Results: 01/15/20 07:52 01/15/20 05:09 01/15/20 01/15/20 01/15/20 05:09 05:09 05:09 WBC Cancelled RBC Cancelled Hgb Cancelled Hct Cancelled MCV Cancelled MCH Cancelled MCHC Cancelled RDW Cancelled Plt Count Cancelled Seg Neutrophils % Cancelled Retic Count (auto) Sodium 142.5 Potassium 3.9 Chloride 117 H Carbon Dioxide 15 L Anion Gap 11 BUN 46 H Creatinine 3.76 H Est GFR ( Amer) 14 L Glucose 144 H Lactic Acid 1.8 Calcium 8.5 Phosphorus 4.6 H Magnesium 2.3 Iron TIBC % Saturation Ferritin Albumin 2.7 L Vitamin B12 Folate Blood Type Antibody Screen 01/15/20 01/15/20 01/15/20 05:09 07:52 07:52 WBC 6.5 RBC 2.48 L Hgb 6.5 L Hct 20.8 L MCV 84 MCH 26.3 L MCHC 31.2 L RDW 29.2 H Plt Count 84 L Seg Neutrophils % 66.4 Retic Count (auto) 2.64 Sodium Potassium Chloride Carbon Dioxide Anion Gap BUN Creatinine Est GFR ( Amer) Glucose Lactic Acid Calcium Phosphorus Magnesium Iron 16.4 L TIBC 285 % Saturation 6 Ferritin 37.50 Albumin Vitamin B12 263.0 Folate 9.33 Blood Type Antibody Screen 01/15/20 10:25 WBC RBC Hgb Hct MCV MCH MCHC RDW Plt Count Seg Neutrophils % Retic Count (auto) Sodium Potassium Chloride Carbon Dioxide Anion Gap BUN Creatinine Est GFR ( Amer) Glucose Lactic Acid Calcium Phosphorus Magnesium Iron TIBC % Saturation Ferritin Albumin Vitamin B12 Folate Blood Type O POSITIVE Antibody Screen NEGATIVE 01/14/20 11:10 Troponin I 0.014 Impressions: Chest X-Ray 01/14/20 10:57 IMPRESSION: Stable chest. No acute findings. Suspect chronic interstitial lung disease. Assessment and Plan - Diagnosis (1) Sepsis Qualifiers: Sepsis type: sepsis due to unspecified organism Sepsis acute organ dysfunction status: with acute organ dysfunction Severe sepsis acute organ dysfunction type: acute renal failure Acute renal failure type: with acute tubular necrosis Severe sepsis shock status: without septic shock Qualified Code(s): A41.9 - Sepsis, unspecified organism; R65.20 - Severe sepsis without septic shock; N17.0 - Acute kidney failure with tubular necrosis Is this a current diagnosis for this admission?: Yes (2) Acute kidney injury superimposed on chronic kidney disease Is this a current diagnosis for this admission?: Yes (3) Metabolic encephalopathy Is this a current diagnosis for this admission?: Yes (4) Dehydration Is this a current diagnosis for this admission?: Yes (5) Lactic acidemia Is this a current diagnosis for this admission?: Yes (6) Thrombocytopenia Is this a current diagnosis for this admission?: Yes (7) Hyperglycemia due to type 2 diabetes mellitus Qualifiers: 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: without senior care use Qualified Code(s): E11.65 - Type 2 diabetes mellitus with hyperglycemia Is this a current diagnosis for this admission?: Yes (8) Dementia Qualifiers: Dementia type: Alzheimer's disease Alzheimer's disease onset: unspecified onset Dementia behavioral disturbance: without behavioral disturbance Qualified Code(s): G30.9 - Alzheimer's disease, unspecified; F02.80 - Dementia in other diseases classified elsewhere without behavioral disturbance Is this a current diagnosis for this admission?: Yes (9) Asthma Qualifiers: Asthma severity: mild Asthma persistence: intermittent Asthma complication type: with acute exacerbation Qualified Code(s): J45.21 - Mild intermittent asthma with (acute) exacerbation Is this a current diagnosis for this admission?: Yes (10) Hypertension Qualifiers: Hypertension type: essential hypertension Qualified Code(s): I10 - Essential (primary) hypertension Is this a current diagnosis for this admission?: Yes (11) Major depression Qualifiers: Major depression recurrence: recurrent Active/Remission status: currently active Major depression episode severity: moderate Qualified Code(s): F33.1 - Major depressive disorder, recurrent, moderate Is this a current diagnosis for this admission?: Yes (12) Iron deficiency anemia Qualifiers: Iron deficiency anemia type: inadequate dietary iron intake Qualified Code( s): D50.8 - Other iron deficiency anemias Is this a current diagnosis for this admission?: Yes (13) Gout Qualifiers: Gout site: unspecified site Gout etiology: unspecified cause Chronicity: chronic Presence of tophus: without tophus Qualified Code(s): M1A.9XX0 - Chronic gout, unspecified, without tophus (tophi) Is this a current diagnosis for this admission?: Yes (14) Hyperlipidemia Qualifiers: Hyperlipidemia type: unspecified Qualified Code(s): E78.5 - Hyperlipidemia, unspecified Is this a current diagnosis for this admission?: Yes (15) Urinary tract infection Qualifiers: Urinary tract infection type: acute cystitis Hematuria presence: with hematuria Qualified Code(s): N30.01 - Acute cystitis with hematuria Is this a current diagnosis for this admission?: Yes - Plan Summary Summary: 01/14/2020 The patient meets sepsis criteria due to the metabolic encephalopathy likely secondary to infection. She also has acute thrombocytopenia as well as acute on chronic kidney injury. She did exhibit a minimally elevated white blood cell count as well as an abnormal chest x-ray. The patient was put on broad-spectrum antibiotic therapy. Blood and urine cultures are pending. Acute on chronic kidney injury with dehydration and likely secondary to sepsis with acute tubular necrosis-the patient exhibits a marked decrease in renal function with significantly elevated BUN and creatinine. She does see nephrology locally and I will have Dr. Carmona consult. I believe she is very dehydrated and we are giving her aggressive fluids for the sepsis as well as the kidney failure. We will continue to monitor her renal function. Lactic acidemia-lactic acid levels are elevated. The patient was given multiple boluses of fluid and we will continue to monitor lactic acid levels. Metabolic encephalopathy secondary to infection with underlying dementia- continue current medications for dementia and will have as needed medication available for sundowning or agitation. Asthma-the patient has underlying asthma. She will be given nebulizer treatments but fortunately she is not hypoxic. Diabetes mellitus-there were no medications listed on her home medication list and we will monitor Accu-Cheks and utilize sliding scale coverage Iron deficiency anemia-it is more likely combination of iron deficiency anemia and anemia of chronic kidney disease. We will continue to monitor hemoglobin levels. Hypertension-the patient fortunately is not exhibiting hypotension/shock. We will continue antihypertensive medications with parameters to hold for low blood pressure. We will also continue the allopurinol for gout and statin therapy for her hyperlipidemia. Depression-we will continue the patient's SSRI medication. Because of the severity of the patient's illness she will be admitted to IM and monitored by telemetry and pulse oximetry in addition to routine vital signs, intake and output. 01/15/2020 The patient is doing much better from a sepsis standpoint. The aggressive f luids have helped. Her urine culture is positive with a preliminary identification of gram-negative bacilli. This certainly could be the source for the sepsis. Await final identification and sensitivities. We will continue her vancomycin and I have changed the aztreonam to ceftriaxone due to the kidney failure. The lactic acidemia has resolved as well. The kidney failure is improved as well. We will continue IV fluids but monitor intake and output closely as well as monitoring renal function to avoid hypervolemia. Hypertension-the patient did exhibit some bradycardia and so I have cut back on the metoprolol. The blood pressure still does not have room to resume her angiotensin receptor diego medication. We will monitor her blood pressure and when appropriate resume the ARB. Anemia-with volume expansion her hemoglobin dropped to 6.5. This does reflect significant hemoconcentration from the dehydration. We are going to administer 2 units of packed red blood cells and monitor closely. We will continue to monitor hemoglobin. There is some hematuria from the urinary tract infection but no gross blood loss at this time. [id number] are improved. Continue sliding scale. Asthma is stable. Continue current regimen. The platelet count did drop even further. It is now below 100. I am going to continue to monitor and if the drop in hemoglobin is any indication the drop in platelets could be due to returning to normovolemia. We did make a therapeutic substitution and will use atorvastatin instead of her Tuttle statin. We are continuing the allopurinol for gout as well as the medications for dementia and depression. Because of the nephrotoxicity of vancomycin and aztreonam I did discontinue the aztreonam after questioning the patient and family about her reaction to penicillin. She did get hives and this was a long time ago. She does not remember being on any medication such as Ancef or Keflex or ceftriaxone. I explained that I wanted to reduce the renal toxicity if possible and that I wanted to try ceftriaxone. They were in agreement. With the urine culture preliminary results showing gram negative bacilli I may be able to discontinue the vancomycin as well. I will wait 24 more hours to see if the blood cultures remain negative. - Time Time Spent with patient: 15-24 minutes Medications reviewed and adjusted accordingly: Yes
[2020-01-15] MEDS: METOPROLOL TARTRATE 25 MG TABLET PO SCH (22:56)
[2020-01-15] MEDS: ATORVASTATIN CALCIUM 40 MG TABLET PO SCH (22:59)
[2020-01-15] MEDS: DONEPEZIL HCL 5 MG TABLET PO SCH (22:59)
[2020-01-16 03:41] LABS: HEMATOCRIT 26.6 % (36.0-47.0); MEAN CORPUSCULAR HEMOGLOBIN 27.7 pg (27.0-33.4); MEAN CORPUSCULAR HGB CONC 32.9 g/dL (32.0-36.0); MEAN CORPUSCULAR VOLUME 84 fl (80-97); RED BLOOD COUNT 3.16 10^6/uL (3.72-5.28); WHITE BLOOD COUNT 6.2 10^3/uL (4.0-10.5)
[2020-01-16 04:09] LABS: ALBUMIN 2.5 g/dL (3.5-5.0); ANION GAP 10 (5-19); BLOOD UREA NITROGEN 38 mg/dL (7-20); CALCIUM 8.1 mg/dL (8.4-10.2); CARBON DIOXIDE 15 mmol/L (22-30); CHLORIDE 115 mmol/L (98-107); GLUCOSE 95 mg/dL (75-110); HEMOGLOBIN 8.7 g/dL (12.0-15.5); PHOSPHORUS 4.7 mg/dL (2.5-4.5); PLATELET COUNT 73 10^3/uL (150-450); POTASSIUM 3.4 mmol/L (3.6-5.0)
[2020-01-16] MEDS: HEPARIN SOD (PORCINE) 5,000 UNIT/ML 1 ML VIAL SUBCUT SCH ×3 (06:41→22:39)
[2020-01-16] MEDS: NORMAL SALINE 1000 ML 1,000 ML IV PRN ×3 (06:46→22:56)
[2020-01-16] MEDS: METOPROLOL TARTRATE 25 MG TABLET PO SCH ×2 (09:17→22:37)
[2020-01-16] MEDS: ALPRAZOLAM 0.5 MG TABLET PO SCH ×2 (09:19→22:37)
[2020-01-16] MEDS: FLUOXETINE HCL 20 MG CAPSULE PO SCH (09:19)
[2020-01-16] MEDS: ALLOPURINOL 100 MG TABLET PO SCH (09:19)
[2020-01-16] MEDS: CEFTRIAXONE 1 GM/D5W RTU 1 GM/50 ML RTUPB IV SCH (09:19)
[2020-01-16] MEDS: MEMANTINE HCL 10 MG TABLET PO SCH ×2 (09:19→22:37)
[2020-01-16] MEDS: SODIUM BICARBONATE 650 MG TABLET PO SCH ×2 (09:19→17:33)
[2020-01-16] MEDS: PANTOPRAZOLE SODIUM 40 MG TABLET.DR PO SCH ×2 (09:19→17:34)
[2020-01-16] MEDS ORDERED: VANCOMYCIN HCL 750 MG in DEXTROSE 5%-WATER 250 ML IV SCH (10:00)
[2020-01-16 10:05] LABS: ABSOLUTE EOSINOPHILS # (AUTO) 0.3 10^3/uL (0.0-0.6); ABSOLUTE LYMPHOCYTES (AUTO) 0.9 10^3/uL (0.5-4.7); ABSOLUTE MONOCYTES (AUTO) 0.8 10^3/uL (0.1-1.4); ABSOLUTE NEUT (AUTO) 3.7 10^3/uL (1.7-8.2); BASOPHILS % (AUTO) 0.9 % (0-2); EOSINOPHILS % (AUTO) 5.3 % (0-6); HEMATOCRIT 29.5 % (36.0-47.0); HEMOGLOBIN 9.6 g/dL (12.0-15.5); LYMPHOCYTES % (AUTO) 15.1 % (13-45); MEAN CORPUSCULAR HEMOGLOBIN 27.8 pg (27.0-33.4); MEAN CORPUSCULAR HGB CONC 32.5 g/dL (32.0-36.0); MEAN CORPUSCULAR VOLUME 86 fl (80-97); MONOCYTES % (AUTO) 14.4 % (3-13); RED BLOOD COUNT 3.45 10^6/uL (3.72-5.28); SEGMENTED NEUTROPHILS % (AUTO) 64.3 % (42-78); TOTAL CELLS COUNTED % (AUTO) 100 %; WHITE BLOOD COUNT 5.7 10^3/uL (4.0-10.5)
[2020-01-16 10:39] LABS: PLATELET COUNT 81 10^3/uL (150-450)
[2020-01-16 10:42] LABS: ANISOCYTOSIS 3+; OVALOCYTES SLIGHT; PLATELET COMMENT DECREASED; TEAR DROP CELLS SLIGHT; TOXIC GRANULATION SLIGHT; TOXIC VACUOLATION PRESENT
--- NOTE | 2020-01-16 10:44 | EKG REPORT ---
SEVERITY:- ABNORMAL ECG - SINUS RHYTHM MULTIPLE ATRIAL PREMATURE COMPLEXES BORDERLINE LEFT AXIS DEVIATION LOW VOLTAGE IN FRONTAL LEADS : Confirmed by: Oly Johnson 16-Jan-2020 10:43:55
--- NOTE | 2020-01-16 12:35 | PDOC PROGRESS REPORT ---
Subjective Progress Note for:: 01/16/20 Reason For Visit: Patient seen this morning. She is got E. coli pansensitive bacteremia/positive urine cultures and is currently on IV Rocephin. She is bit more awake and alert than yesterday. She still confused. by the bedside who thinks that she is making slow but steady progress. No acute complaints of any chest pain shortness of breath fever or chills. Labs and medications were reviewed that shows downtrending creatinine. Physical Exam Vital Signs: Temp Pulse Resp BP Pulse Ox 98.1 F 61 17 108/40 L 99 01/16/20 07:57 01/16/20 07:57 01/16/20 07:57 01/16/20 07:57 01/16/20 07:57 Intake & Output 01/15/20 01/16/20 01/17/20 06:59 06:59 06:59 Intake Total 3858 4490 50 Output Total 200 2150 Balance 3658 2340 50 Weight 83.5 kg 90.2 kg General appearance: PRESENT: no acute distress Respiratory exam: PRESENT: clear to auscultation brennan, decreased breath sounds. ABSENT: crackles Cardiovascular exam: PRESENT: +S1, +S2 GI/Abdominal exam: PRESENT: normal bowel sounds, soft. ABSENT: organomegaly, tenderness Extremities exam: ABSENT: pedal edema Neurological exam: PRESENT: alert, awake Skin exam: ABSENT: cyanosis, erythema, mottled Results Laboratory Results: 01/16/20 09:50 01/16/20 03:17 01/15/20 01/16/20 01/16/20 10:25 03:17 03:17 WBC 6.2 RBC 3.16 L Hgb 8.7 L D Hct 26.6 L MCV 84 MCH 27.7 MCHC 32.9 RDW 24.0 H Plt Count 73 L Seg Neutrophils % Sodium 139.8 Potassium 3.4 L Chloride 115 H Carbon Dioxide 15 L Anion Gap 10 BUN 38 H Creatinine 3.02 H Est GFR ( Amer) 18 L Glucose 95 Calcium 8.1 L Phosphorus 4.7 H Magnesium 1.9 Albumin 2.5 L Blood Type O POSITIVE Antibody Screen NEGATIVE 01/16/20 09:50 WBC 5.7 RBC 3.45 L Hgb 9.6 L Hct 29.5 L MCV 86 MCH 27.8 MCHC 32.5 RDW 25.0 H Plt Count 81 L Seg Neutrophils % 64.3 Sodium Potassium Chloride Carbon Dioxide Anion Gap BUN Creatinine Est GFR ( Amer) Glucose Calcium Phosphorus Magnesium Albumin Blood Type Antibody Screen 01/14/20 12:40 Blood Blood Culture - Final Escherichia Coli 01/14/20 13:23 Clean Catch Midstream Urine Culture - Final Escherichia Coli 01/14/20 11:10 Troponin I 0.014 Impressions: Chest X-Ray 01/14/20 10:57 IMPRESSION: Stable chest. No acute findings. Suspect chronic interstitial lung disease. Assessment & Plan - Diagnosis (1) Acute renal failure Qualifiers: Acute renal failure type: unspecified Qualified Code(s): N17.9 - Acute kidney failure, unspecified Plan: Nonoliguric. Improving renal numbers. Continue current guidelines.Metabolic acidosis should improve with improving renal numbers. Besides that she is also on bicarb replacements. (2) Dehydration Is this a current diagnosis for this admission?: Yes Plan: Continue with IV fluids. P.o. intake is still poor (3) Diabetes mellitus type II, controlled Plan: As per hospitalist. (4) Hypertension Qualifiers: Hypertension type: essential hypertension Qualified Code(s): I10 - Essential (primary) hypertension Is this a current diagnosis for this admission?: Yes Plan: Stable. (5) Urinary tract infection Qualifiers: Urinary tract infection type: acute cystitis Hematuria presence: with hematuria Qualified Code(s): N30.01 - Acute cystitis with hematuria Is this a current diagnosis for this admission?: Yes Plan: Sepsis due to E. coli. Currently on appropriate antibiotics and improving. (6) Acute anemia Plan: Currently stable post transfusions. She is also having low B12. Will order an injection of B12 IM. (7) Gram-negative bacteremia Plan: With E. coli sepsis. Currently improving on appropriate antibiotics. As per hospitalist.
[2020-01-16] MEDS ORDERED: CYANOCOBALAMIN (VITAMIN B-12) INJ 1000 MCG/1 ML VIAL IM ONE ×2 (12:45→17:15)
--- NOTE | 2020-01-16 14:53 | PDOC PROGRESS REPORT ---
Subjective Progress Note for:: 01/16/20 Subjective:: The patient is very depressed today. She has a very sorrowful look on her face. She stated that she wanted to . I asked her specifically if there was anything wrong and she did not give me a focused answer. I did suggest that we have psychiatry see her to help with her depression. Reason For Visit: PNEUMONIA,ACUTE ON CHRONIC KIDNEY FAILURE, Physical Exam Vital Signs: Temp Pulse Resp BP Pulse Ox 97.3 F 55 L 18 111/44 L 100 01/16/20 11:39 01/16/20 11:39 01/16/20 11:39 01/16/20 11:39 01/16/20 11:39 Intake & Output 01/15/20 01/16/20 01/17/20 06:59 06:59 06:59 Intake Total 3858 4490 530 Output Total 200 2150 600 Balance 3658 2340 -70 Weight 83.5 kg 90.2 kg General appearance: PRESENT: other - The patient is in moderate distress and appears to be on the verge of tears Eye exam: PRESENT: conjunctiva pale. ABSENT: scleral icterus Respiratory exam: PRESENT: clear to auscultation brennan, symmetrical, unlabored. ABSENT: rales, rhonchi, tachypnea, wheezes Cardiovascular exam: PRESENT: RRR, +S1, +S2 GI/Abdominal exam: PRESENT: normal bowel sounds, soft. ABSENT: distended, guarding, mass, tenderness Rectal exam: PRESENT: deferred Neurological exam: PRESENT: alert, awake, oriented to person, oriented to place, oriented to situation Psychiatric exam: PRESENT: depressed, other - She states that she just wants to . She has no plans or suicidal intent but as I tried to draw out of her, she may be tired of being sick all the time. Results Laboratory Results: 01/16/20 09:50 01/16/20 03:17 01/15/20 01/16/20 01/16/20 10:25 03:17 03:17 WBC 6.2 RBC 3.16 L Hgb 8.7 L D Hct 26.6 L MCV 84 MCH 27.7 MCHC 32.9 RDW 24.0 H Plt Count 73 L Seg Neutrophils % Sodium 139.8 Potassium 3.4 L Chloride 115 H Carbon Dioxide 15 L Anion Gap 10 BUN 38 H Creatinine 3.02 H Est GFR ( Amer) 18 L Glucose 95 Calcium 8.1 L Phosphorus 4.7 H Magnesium 1.9 Albumin 2.5 L Blood Type O POSITIVE Antibody Screen NEGATIVE 01/16/20 09:50 WBC 5.7 RBC 3.45 L Hgb 9.6 L Hct 29.5 L MCV 86 MCH 27.8 MCHC 32.5 RDW 25.0 H Plt Count 81 L Seg Neutrophils % 64.3 Sodium Potassium Chloride Carbon Dioxide Anion Gap BUN Creatinine Est GFR ( Amer) Glucose Calcium Phosphorus Magnesium Albumin Blood Type Antibody Screen 01/14/20 12:40 Blood Blood Culture - Final Escherichia Coli 01/14/20 13:23 Clean Catch Midstream Urine Culture - Final Escherichia Coli 01/14/20 11:10 Troponin I 0.014 Impressions: Chest X-Ray 01/14/20 10:57 IMPRESSION: Stable chest. No acute findings. Suspect chronic interstitial lung disease. Assessment and Plan - Diagnosis (1) Sepsis Qualifiers: Sepsis type: sepsis due to unspecified organism Sepsis acute organ dysfunction status: with acute organ dysfunction Severe sepsis acute organ dysfunction type: acute renal failure Acute renal failure type: with acute tubular necrosis Severe sepsis shock status: without septic shock Qualified Code(s): A41.9 - Sepsis, unspecified organism; R65.20 - Severe sepsis without septic shock; N17.0 - Acute kidney failure with tubular necrosis Is this a current diagnosis for this admission?: Yes (2) Acute kidney injury superimposed on chronic kidney disease Is this a current diagnosis for this admission?: Yes (3) Metabolic encephalopathy Is this a current diagnosis for this admission?: Yes (4) Dehydration Is this a current diagnosis for this admission?: Yes (5) Lactic acidemia Is this a current diagnosis for this admission?: Yes (6) Thrombocytopenia Is this a current diagnosis for this admission?: Yes (7) Hyperglycemia due to type 2 diabetes mellitus Qualifiers: Diabetes mellitus shelter insulin use: without shelter use Qualified Code(s): E11.65 - Type 2 diabetes mellitus with hyperglycemia Is this a current diagnosis for this admission?: Yes (8) Dementia Qualifiers: Dementia type: Alzheimer's disease Alzheimer's disease onset: unspecified onset Dementia behavioral disturbance: without behavioral disturbance Qualified Code(s): G30.9 - Alzheimer's disease, unspecified; F02.80 - Dementia in other diseases classified elsewhere without behavioral disturbance Is this a current diagnosis for this admission?: Yes (9) Asthma Qualifiers: Asthma severity: mild Asthma persistence: intermittent Asthma complication type: with acute exacerbation Qualified Code(s): J45.21 - Mild intermittent asthma with (acute) exacerbation Is this a current diagnosis for this admission?: Yes (10) Hypertension Qualifiers: Hypertension type: essential hypertension Qualified Code(s): I10 - Essential (primary) hypertension Is this a current diagnosis for this admission?: Yes (11) Major depression Qualifiers: Major depression recurrence: recurrent Active/Remission status: currently active Major depression episode severity: moderate Qualified Code(s): F33.1 - Major depressive disorder, recurrent, moderate Is this a current diagnosis for this admission?: Yes (12) Iron deficiency anemia Qualifiers: Iron deficiency anemia type: inadequate dietary iron intake Qualified Code(s): D50.8 - Other iron deficiency anemias Is this a current diagnosis for this admission?: Yes (13) Gout Qualifiers: Gout site: unspecified site Gout etiology: unspecified cause Chronicity: chronic Presence of tophus: without tophus Qualified Code(s): M1A.9XX0 - Chronic gout, unspecified, without tophus (tophi) Is this a current diagnosis for this admission?: Yes (14) Hyperlipidemia Qualifiers: Hyperlipidemia type: unspecified Qualified Code(s): E78.5 - Hyperlipidemia, unspecified Is this a current diagnosis for this admission?: Yes (15) Urinary tract infection Qualifiers: Urinary tract infection type: acute cystitis Hematuria presence: with hematuria Qualified Code(s): N30.01 - Acute cystitis with hematuria Is this a current diagnosis for this admission?: Yes - Plan Summary Summary: 01/14/2020 The patient meets sepsis criteria due to the metabolic encephalopathy likely secondary to infection. She also has acute thrombocytopenia as well as acute on chronic kidney injury. She did exhibit a minimally elevated white blood cell count as well as an abnormal chest x-ray. The patient was put on broad-spectrum antibiotic therapy. Blood and urine cultures are pending. Acute on chronic kidney injury with dehydration and likely secondary to sepsis with acute tubular necrosis-the patient exhibits a marked decrease in renal function with significantly elevated BUN and creatinine. She does see nephrology locally and I will have Dr. Carmona consult. I believe she is very dehydrated and we are giving her aggressive fluids for the sepsis as well as the kidney failure. We will continue to monitor her renal function. Lactic acidemia-lactic acid levels are elevated. The patient was given multiple boluses of fluid and we will continue to monitor lactic acid levels. Metabolic encephalopathy secondary to infection with underlying dementia- continue current medications for dementia and will have as needed medication available for sundowning or agitation. Asthma-the patient has underlying asthma. She will be given nebulizer treatments but fortunately she is not hypoxic. Diabetes mellitus-there were no medications listed on her home medication list and we will monitor Accu-Cheks and utilize sliding scale coverage Iron deficiency anemia-it is more likely combination of iron deficiency anemia and anemia of chronic kidney disease. We will continue to monitor hemoglobin levels. Hypertension-the patient fortunately is not exhibiting hypotension/shock. We will continue antihypertensive medications with parameters to hold for low blood pressure. We will also continue the allopurinol for gout and statin therapy for her hyperlipidemia. Depression-we will continue the patient's SSRI medication. Because of the severity of the patient's illness she will be admitted to [facility] and monitored by telemetry and pulse oximetry in addition to routine vital signs, intake and output. 01/15/2020 The patient is doing much better from a sepsis standpoint. The aggressive fluids have helped. Her urine culture is positive with a preliminary identification of gram-negative bacilli. This certainly could be the source for the sepsis. Await final identification and sensitivities. We will continue her vancomycin and I have changed the aztreonam to ceftriaxone due to the kidney failure. The lactic acidemia has resolved as well. The kidney failure is improved as well. We will continue IV fluids but monitor intake and output closely as well as monitoring renal function to avoid hypervolemia. Hypertension-the patient did exhibit some bradycardia and so I have cut back on the metoprolol. The blood pressure still does not have room to resume her angiotensin receptor diego medication. We will monitor her blood pressure and when appropriate resume the ARB. Anemia-with volume expansion her hemoglobin dropped to 6.5. This does reflect significant hemoconcentration from the dehydration. We are going to administer 2 units of packed red blood cells and monitor closely. We will continue to monitor hemoglobin. There is some hematuria from the urinary tract infection but no gross blood loss at this time. Eunomozn-Okov-Qmmlq are improved. Continue sliding scale. Asthma is stable. Continue current regimen. The platelet count did drop even further. It is now below 100. I am going to continue to monitor and if the drop in hemoglobin is any indication the drop in platelets could be due to returning to normovolemia. We did make a therapeutic substitution and will use atorvastatin instead of her Rouvastatin. We are continuing the allopurinol for gout as well as the medications for dementia and depression. Because of the nephrotoxicity of vancomycin and aztreonam I did discontinue the aztreonam after questioning the patient and family about her reaction to penicillin. She did get hives and this was a long time ago. She does not remember being on any medication such as Ancef or Keflex or ceftriaxone. I explained that I wanted to reduce the renal toxicity if possible and that I wanted to try ceftriaxone. They were in agreement. With the urine culture preliminary results showing gram negative bacilli I may be able to discontinue the vancomycin as well. I will wait 24 more hours to see if the blood cultures remain negative. 01/16/2020 The patient seems very depressed today but could not focus on an answer for me as to why. As noted above I believe she is "sick of being sick ". Her aide was present and we are trying to see if there was any single reason or if it had to do more globally with her overall health. She is tolerating the ceftriaxone for her urinary tract infection. It is E. coli that is pansensitive. We will complete a course of antibiotic therapy. She is clearly very depressed. Which tends to make underlying dementia worse. I did ask her specifically, and she agreed, to have psychiatry come and speak with her. I told her that possibly we could make some changes in her medications that may make her feel better. Hemoglobin is back up to 9.6. She has borderline hypokalemia that we will need to correct. I have slowed her IV fluids and will try and encourage better oral intake. We will continue to monitor the patient on telemetry, follow Accu-Cheks, monitor intake and output and monitor laboratory studies. - Time Time Spent with patient: 15-24 minutes Medications reviewed and adjusted accordingly: Yes
--- NOTE | 2020-01-16 17:08 | RADIOLOGY REPORT (SQ) ---
EXAM DESCRIPTION: CHEST SINGLE VIEW COMPLETED DATE/TIME: 01/16/2020 4:26 pm REASON FOR STUDY: Pneumonia COMPARISON: 01/14/2020 TECHNIQUE: Single frontal radiographic view of the chest acquired. NUMBER OF VIEWS: One view. LIMITATIONS: None. FINDINGS: LUNGS AND PLEURA: No pneumothorax. Increased left basilar airspace disease- pleural effus ion. Similar interstitial thickening. MEDIASTINUM AND HILAR STRUCTURES: Stable. HEART AND VASCULAR STRUCTURES: Stable. BONES: No acute findings. HARDWARE: None in the chest. OTHER: No other significant finding. IMPRESSION: Increased left basilar airspace disease- pleural effusion. TECHNICAL DOCUMENTATION: JOB ID: [id number] [place]-72 2010 [email or web address]- All Rights Reserved Reading location - IP/workstation name: [email or web address]
[2020-01-16] MEDS: ATORVASTATIN CALCIUM 40 MG TABLET PO SCH (22:37)
[2020-01-16] MEDS: DONEPEZIL HCL 5 MG TABLET PO SCH (22:37)
[2020-01-16] MEDS: FLUTICASONE NASAL SPRAY 50 MCG/SPRY 120 SPRAY/16 GM NASL SCH (22:39)
[2020-01-17 05:26] LABS: ABSOLUTE BASOPHILS # (AUTO) 0.1 10^3/uL (0.0-0.2); ABSOLUTE EOSINOPHILS # (AUTO) 0.4 10^3/uL (0.0-0.6); ABSOLUTE MONOCYTES (AUTO) 0.6 10^3/uL (0.1-1.4); ABSOLUTE NEUT (AUTO) 2.9 10^3/uL (1.7-8.2); EOSINOPHILS % (AUTO) 7.8 % (0-6); HEMATOCRIT 27.4 % (36.0-47.0); HEMOGLOBIN 8.8 g/dL (12.0-15.5); LYMPHOCYTES % (AUTO) 20.5 % (13-45); MEAN CORPUSCULAR HEMOGLOBIN 27.4 pg (27.0-33.4); MEAN CORPUSCULAR HGB CONC 32.3 g/dL (32.0-36.0); MEAN CORPUSCULAR VOLUME 85 fl (80-97); MONOCYTES % (AUTO) 12.8 % (3-13); RED BLOOD COUNT 3.23 10^6/uL (3.72-5.28); RED CELL DISTRIBUTION WIDTH 24.9 % (11.5-14.0); SEGMENTED NEUTROPHILS % (AUTO) 57.9 % (42-78); TOTAL CELLS COUNTED % (AUTO) 100 %
[2020-01-17 05:29] LABS: PLATELET COUNT 81 10^3/uL (150-450)
[2020-01-17 05:43] LABS: ANISOCYTOSIS 3+; PLATELET COMMENT DECREASED; POIKILOCYTOSIS SLIGHT; POLYCHROMASIA SLIGHT; TEAR DROP CELLS SLIGHT
[2020-01-17 05:44] LABS: ALBUMIN 2.3 g/dL (3.5-5.0); ANION GAP 8 (5-19); BLOOD UREA NITROGEN 31 mg/dL (7-20); CALCIUM 8.1 mg/dL (8.4-10.2); CARBON DIOXIDE 17 mmol/L (22-30); CHLORIDE 115 mmol/L (98-107); GLUCOSE 99 mg/dL (75-110); POTASSIUM 3.5 mmol/L (3.6-5.0)
[2020-01-17] MEDS: HEPARIN SOD (PORCINE) 5,000 UNIT/ML 1 ML VIAL SUBCUT SCH ×3 (06:25→21:28)
[2020-01-17] MEDS: SODIUM BICARBONATE 650 MG TABLET PO SCH ×2 (10:44→17:13)
[2020-01-17] MEDS: MEMANTINE HCL 10 MG TABLET PO SCH ×2 (10:59→21:27)
[2020-01-17] MEDS: ALPRAZOLAM 0.5 MG TABLET PO SCH ×2 (10:59→21:29)
[2020-01-17] MEDS: PANTOPRAZOLE SODIUM 40 MG TABLET.DR PO SCH ×2 (10:59→17:13)
[2020-01-17] MEDS: FLUOXETINE HCL 20 MG CAPSULE PO SCH (10:59)
[2020-01-17] MEDS: ALLOPURINOL 100 MG TABLET PO SCH (11:00)
[2020-01-17] MEDS: CEFTRIAXONE 1 GM/D5W RTU 1 GM/50 ML RTUPB IV SCH (11:03)
--- NOTE | 2020-01-17 11:59 | PDOC PROGRESS REPORT ---
Subjective Progress Note for:: 01/17/20 Subjective:: The patient's is in the room today. She still reports that she is feeling poorly. She does admit to possibly feeling better than yesterday. She still has a very sad depressed look on her face. Reason For Visit: PNEUMONIA,ACUTE ON CHRONIC KIDNEY FAILURE, Physical Exam Vital Signs: Temp Pulse Resp BP Pulse Ox 97.8 F 60 18 106/46 L 100 01/17/20 08:06 01/17/20 08:06 01/17/20 08:06 01/17/20 08:06 01/17/20 08:06 Intake & Output 01/16/20 01/17/20 01/18/20 06:59 06:59 06:59 Intake Total 4490 2631 Output Total 2150 3200 Balance 2340 -569 Weight 90.2 kg 92.9 kg Results Laboratory Results: 01/17/20 04:55 01/17/20 04:55 01/17/20 01/17/20 04:55 04:55 WBC 5.0 RBC 3.23 L Hgb 8.8 L Hct 27.4 L MCV 85 MCH 27.4 MCHC 32.3 RDW 24.9 H Plt Count 81 L Seg Neutrophils % 57.9 Sodium 140.0 Potassium 3.5 L Chloride 115 H Carbon Dioxide 17 L Anion Gap 8 BUN 31 H Creatinine 2.47 H Est GFR ( Amer) 23 L Glucose 99 Calcium 8.1 L Phosphorus 4.0 Magnesium 1.8 Albumin 2.3 L 01/14/20 12:40 Blood Blood Culture - Final Escherichia Coli 01/14/20 13:23 Clean Catch Midstream Urine Culture - Final Escherichia Coli 01/14/20 11:10 Troponin I 0.014 Impressions: Chest X-Ray 01/16/20 00:00 IMPRESSION: Increased left basilar airspace disease- pleural effusion. Assessment and Plan - Diagnosis (1) Sepsis Qualifiers: Sepsis type: sepsis due to unspecified organism Sepsis acute organ dysfunction status: with acute organ dysfunction Severe sepsis acute organ dysfunction type: acute renal failure Acute renal failure type: with acute tubular necrosis Severe sepsis shock status: without septic shock Qualified Code(s): A41.9 - Sepsis, unspecified organism; R65.20 - Severe sepsis without septic shock; N17.0 - Acute kidney failure with tubular necrosis Is this a current diagnosis for this admission?: Yes (2) Acute kidney injury superimposed on chronic kidney disease Is this a current diagnosis for this admission?: Yes (3) Metabolic encephalopathy Is this a current diagnosis for this admission?: Yes (4) Dehydration Is this a current diagnosis for this admission?: Yes (5) Lactic acidemia Is this a current diagnosis for this admission?: Yes (6) Thrombocytopenia Is this a current diagnosis for this admission?: Yes (7) Hyperglycemia due to type 2 diabetes mellitus Qualifiers: Diabetes mellitus penitentiary insulin use: without continuous churn buttermaker use Qualified Code(s): E11.65 - Type 2 diabetes mellitus with hyperglycemia Is this a current diagnosis for this admission?: Yes (8) Dementia Qualifiers: Dementia type: Alzheimer's disease Alzheimer's disease onset: unspecified onset Dementia behavioral disturbance: without behavioral disturbance Qualified Code(s): G30.9 - Alzheimer's disease, unspecified; F02.80 - Dementia in other diseases classified elsewhere without behavioral disturbance Is this a current diagnosis for this admission?: Yes (9) Asthma Qualifiers: Asthma severity: mild Asthma persistence: intermittent Asthma complication type: with acute exacerbation Qualified Code(s): J45.21 - Mild intermittent asthma with (acute) exacerbation Is this a current diagnosis for this admission?: Yes (10) Hypertension Qualifiers: Hypertension type: essential hypertension Qualified Code(s): I10 - Essential (primary) hypertension Is this a current diagnosis for this admission?: Yes (11) Major depression Qualifiers: Major depression recurrence: recurrent Active/Remission status: currently active Major depression episode severity: moderate Qualified Code(s): F33.1 - Major depressive disorder, recurrent, moderate Is this a current diagnosis for this admission?: Yes (12) Iron deficiency anemia Qualifiers: Iron deficiency anemia type: inadequate dietary iron intake Qualified Code(s): D50.8 - Other iron deficiency anemias Is this a current diagnosis for this admission?: Yes (13) Gout Qualifiers: Gout site: unspecified site Gout etiology: unspecified cause Chronicity: chronic Presence of tophus: without tophus Qualified Code(s): M1A.9XX0 - Chronic gout, unspecified, without tophus (tophi) Is this a current diagnosis for this admission?: Yes (14) Hyperlipidemia Qualifiers: Hyperlipidemia type: unspecified Qualified Code(s): E78.5 - Hyperlipidemia, unspecified Is this a current diagnosis for this admission?: Yes (15) Urinary tract infection Qualifiers: Urinary tract infection type: acute cystitis Hematuria presence: with hematuria Qualified Code(s): N30.01 - Acute cystitis with hematuria Is this a current diagnosis for this admission?: Yes - Plan Summary Summary: 01/14/2020 The patient meets sepsis criteria due to the metabolic encephalopathy likely secondary to infection. She also has acute thrombocytopenia as well as acute on chronic kidney injury. She did exhibit a minimally elevated white blood cell count as well as an abnormal chest x-ray. The patient was put on broad-spectrum antibiotic therapy. Blood and urine cultures are pending. Acute on chronic kidney injury with dehydration and likely secondary to sepsis with acute tubular necrosis-the patient exhibits a marked decrease in renal function with significantly elevated BUN and creatinine. She does see nephrology locally and I will have Dr. Carmona consult. I believe she is very dehydrated and we are giving her aggressive fluids for the sepsis as well as the kidney failure. We will continue to monitor her renal function. Lactic acidemia-lactic acid levels are elevated. The patient was given multiple boluses of fluid and we will continue to monitor lactic acid levels. Metabolic encephalopathy secondary to infection with underlying dementia- continue current medications for dementia and will have as needed medication available for sundowning or agitation. Asthma-the patient has underlying asthma. She will be given nebulizer treatments but fortunately she is not hypoxic. Diabetes mellitus-there were no medications listed on her home medication list and we will monitor Accu-Cheks and utilize sliding scale coverage Iron deficiency anemia-it is more likely combination of iron deficiency anemia and anemia of chronic kidney disease. We will continue to monitor hemoglobin levels. Hypertension-the patient fortunately is not exhibiting hypotension/shock. We will continue antihypertensive medications with parameters to hold for low blood pressure. We will also continue the allopurinol for gout and statin therapy for her hyperlipidemia. Depression-we will continue the patient's SSRI medication. Because of the severity of the patient's illness she will be admitted to [facility] a nd monitored by telemetry and pulse oximetry in addition to routine vital signs, intake and output. 01/15/2020 The patient is doing much better from a sepsis standpoint. The aggressive fluids have helped. Her urine culture is positive with a preliminary identification of gram-negative bacilli. This certainly could be the source for the sepsis. Await final identification and sensitivities. We will continue her vancomycin and I have changed the aztreonam to ceftriaxone due to the kidney failure. The lactic acidemia has resolved as well. The kidney failure is improved as well. We will continue IV fluids but monitor intake and output closely as well as monitoring renal function to avoid hypervolemia. Hypertension-the patient did exhibit some bradycardia and so I have cut back on the metoprolol. The blood pressure still does not have room to resume her angiotensin receptor diego medication. We will monitor her blood pressure and when appropriate resume the ARB. Anemia-with volume expansion her hemoglobin dropped to 6.5. This does reflect significant hemoconcentration from the dehydration. We are going to administer 2 units of packed red blood cells and monitor closely. We will continue to monitor hemoglobin. There is some hematuria from the urinary tract infection but no gross blood loss at this time. Biublztc-Tccn-Bahaz are improved. Continue sliding scale. Asthma is stable. Continue current regimen. The platelet count did drop even further. It is now below 100. I am going to continue to monitor and if the drop in hemoglobin is any indication the drop in platelets could be due to returning to normovolemia. We did make a therapeutic substitution and will use atorvastatin instead of her Rouvastatin. We are continuing the allopurinol for gout as well as the medications for dementia and depression. Because of the nephrotoxicity of vancomycin and aztreonam I did discontinue the aztreonam after questioning the patient and family about her reaction to penicillin. She did get hives and this was a long time ago. She does not remember being on any medication such as Ancef or Keflex or ceftriaxone. I explained that I wanted to reduce the renal toxicity if possible and that I wanted to try ceftriaxone. They were in agreement. With the urine culture preliminary results showing gram negative bacilli I may be able to discontinue the vancomycin as well. I will wait 24 more hours to see if the blood cultures remain negative. 01/16/2020 The patient seems very depressed today but could not focus on an answer for me as to why. As noted above I believe she is "sick of being sick ". Her aide was present and we are trying to see if there was any single reason or if it had to do more globally with her overall health. She is tolerating the ceftriaxone for her urinary tract infection. It is E. coli that is pansensitive. We will complete a course of antibiotic therapy. She is clearly very depressed. Which tends to make underlying dementia worse. I did ask her specifically, and she agreed, to have psychiatry come and speak with her. I told her that possibly we could make some changes in her medications that may make her feel better. Hemoglobin is back up to 9.6. She has borderline hypokalemia that we will need to correct. I have slowed her IV fluids and will try and encourage better oral intake. We will continue to monitor the patient on telemetry, follow Accu-Cheks, monitor intake and output and monitor laboratory studies. 01/17/2020 Psychiatry did see the patient. Medication recommendations were to discontinue the Prozac and start Depakote 250 mg twice daily. We are going to leave the benzodiazepine therapy in place for the time being. I have ordered a palliative care consult to educate her and her on different levels of treatment if she truly wants to move towards a hospice level or comfort measure plan. Her hemoglobin has dropped again today. I will order Hemoccult testing but it could be her iron deficiencies and compromised overall health. She did receive several units of packed red blood cells and it likely helps but it is hard to gauge based on her verbal responses. Her kidneys continue to improve. I did decrease the fluids somewhat as I want to be careful not to volume overload the patient. She is tolerating the ceftriaxone therapy despite her multiple medication allergies. Her diabetes remains reasonably controlled. Her vital signs remained stable although the pulse rate tends to be in the low normal range. I might consider decreasing her metoprolol somewhat. She is on a very low dose and I doubt very much that it contributes to any depressive symptoms. The nurse was in the room with me and we did spend some time talking about short-term rehab after dischar nena. She did have a stay in a facility in [place]. The funeral planner did provide a list of home health agencies and snf facilities. The is going to look at the list. We strongly encourage them to consider this route as she is still extremely weak. It would be unsafe for discharge to home. Physical therapy continues to work with the patient but her recovery will be slow. - Time Time Spent with patient: 25-34 minutes Medications reviewed and adjusted accordingly: Yes
--- NOTE | 2020-01-17 12:56 | PSYCHOLOGICAL NOTE ---
Psych Note - Psych Note Date seen by psych provider: 01/17/20 Time seen by psych provider: 11:05 Psych Note: Reason For Consult:Depression Consent permissions: patient's at bedside per patient's request Patient was asked how long she had been feeling sad, she reports she does not know. When clinician explained medication recommendations by [facility]'s psychiatrist, she reports her medication works. When asked how long she was on Prozac, her anti-depressant, she reports she takes half her pill in the morning an half in the afternoon. Patient is reminded that is her prescription of Xanax; she agrees. Patient reports she is tired of being sick but denies any thoughts of wanting to hurt herself. Patient engaged with clinician when talking about her sisters and how she does not always get along with her twin sister. Patient's mood is dysphoric with congruent affect. Patient is noted to be easily irritated and is noted to roll her eyes frequently with asked questions (behaviour noted when dietary came into patent's room to ask about lunch options ). She denies suicidal and homicidal ideation. Patient has an existing dementia diagnosis documented since 2014; cognitive processes reflect neurodegenerative processes. Medication recommendations per [facility]'s contracted psychiatrist Dr. Rah SMITH are as follows Discontinue home medication of Prozac Start Depakote 250 mg twice daily Impression\plan:Patient is cleared from acute psychiatric. Patient is dysphoric however not experiencing suicidal ideation. She has noted neurodegenerative process which are reflected in her cognitive processes and interpersonal interactions. Medication recommendations have been provided; please re-consult if any new concerns arise. Dr. Alonso was consulted to care management of this patient; attending physicians in agreement with recommendations and disposition.
[2020-01-17] MEDS: FLUTICASONE NASAL SPRAY 50 MCG/SPRY 120 SPRAY/16 GM NASL SCH ×2 (14:48→21:35)
[2020-01-17] MEDS: METOPROLOL TARTRATE 25 MG TABLET PO SCH ×2 (14:49→21:27)
[2020-01-17] MEDS ORDERED: POTASSIUM CHLORIDE 10 MEQ TABLET.ER PO ONE ×2 (18:54→23:18)
[2020-01-17] MEDS: ATORVASTATIN CALCIUM 40 MG TABLET PO SCH (21:27)
[2020-01-17] MEDS: DONEPEZIL HCL 5 MG TABLET PO SCH (21:27)
[2020-01-17] MEDS: DIVALPROEX SODIUM 250 MG TAB.SR.24H PO SCH (21:36)
[2020-01-18] MEDS: HEPARIN SOD (PORCINE) 5,000 UNIT/ML 1 ML VIAL SUBCUT SCH ×3 (05:02→22:22)
[2020-01-18 10:46] LABS: ABSOLUTE BASOPHILS # (AUTO) 0.1 10^3/uL (0.0-0.2); ABSOLUTE EOSINOPHILS # (AUTO) 0.4 10^3/uL (0.0-0.6); ABSOLUTE LYMPHOCYTES (AUTO) 0.9 10^3/uL (0.5-4.7); ABSOLUTE MONOCYTES (AUTO) 0.6 10^3/uL (0.1-1.4); ABSOLUTE NEUT (AUTO) 3.4 10^3/uL (1.7-8.2); BASOPHILS % (AUTO) 1.4 % (0-2); EOSINOPHILS % (AUTO) 7.5 % (0-6); HEMATOCRIT 28.4 % (36.0-47.0); HEMOGLOBIN 9.3 g/dL (12.0-15.5); LYMPHOCYTES % (AUTO) 17.5 % (13-45); MEAN CORPUSCULAR HEMOGLOBIN 27.7 pg (27.0-33.4); MEAN CORPUSCULAR HGB CONC 32.9 g/dL (32.0-36.0); MEAN CORPUSCULAR VOLUME 84 fl (80-97); MONOCYTES % (AUTO) 10.9 % (3-13); RED BLOOD COUNT 3.37 10^6/uL (3.72-5.28); SEGMENTED NEUTROPHILS % (AUTO) 62.7 % (42-78); TOTAL CELLS COUNTED % (AUTO) 100 %; WHITE BLOOD COUNT 5.4 10^3/uL (4.0-10.5)
[2020-01-18 11:00] LABS: ALBUMIN 2.6 g/dL (3.5-5.0); ANION GAP 8 (5-19); BLOOD UREA NITROGEN 26 mg/dL (7-20); CALCIUM 8.5 mg/dL (8.4-10.2); CARBON DIOXIDE 16 mmol/L (22-30); CHLORIDE 118 mmol/L (98-107); GLUCOSE 154 mg/dL (75-110); PHOSPHORUS 3.3 mg/dL (2.5-4.5); POTASSIUM 4.3 mmol/L (3.6-5.0)
[2020-01-18] MEDS: CEFTRIAXONE 1 GM/D5W RTU 1 GM/50 ML RTUPB IV SCH (11:05)
[2020-01-18] MEDS: ALLOPURINOL 100 MG TABLET PO SCH (11:06)
[2020-01-18] MEDS: POTASSIUM CHLORIDE 10 MEQ TABLET.ER PO SCH (11:06)
[2020-01-18] MEDS: ALPRAZOLAM 0.5 MG TABLET PO SCH ×2 (11:07→22:21)
[2020-01-18] MEDS: SODIUM BICARBONATE 650 MG TABLET PO SCH ×2 (11:07→17:17)
[2020-01-18] MEDS: FERROUS SULFATE 325 MG TABLET PO SCH ×2 (11:08→17:17)
[2020-01-18] MEDS: PANTOPRAZOLE SODIUM 40 MG TABLET.DR PO SCH ×2 (11:08→17:17)
[2020-01-18] MEDS: MEMANTINE HCL 10 MG TABLET PO SCH ×2 (11:08→22:21)
[2020-01-18] MEDS: DIVALPROEX SODIUM 250 MG TAB.SR.24H PO SCH ×2 (11:09→22:21)
[2020-01-18] MEDS: FLUTICASONE NASAL SPRAY 50 MCG/SPRY 120 SPRAY/16 GM NASL SCH ×2 (11:10→22:22)
[2020-01-18 11:47] LABS: ANISOCYTOSIS 3+; OVALOCYTES 1+; PLATELET COUNT 83 10^3/uL (150-450)
[2020-01-18 11:48] LABS: PLATELET COMMENT DECREASED
--- NOTE | 2020-01-18 11:53 | PDOC PROGRESS REPORT ---
Subjective Progress Note for:: 01/18/20 Subjective:: The patient still appears to be very depressed. Despite improvements in numbers and appropriate treatment for her urinary tract infection she does not appear to be improving. I believe a lot of this is related to her depression. Reason For Visit: PNEUMONIA,ACUTE ON CHRONIC KIDNEY FAILURE, Physical Exam Vital Signs: Temp Pulse Resp BP Pulse Ox 97.3 F 64 18 134/51 H 100 01/18/20 07:58 01/18/20 07:58 01/18/20 07:58 01/18/20 07:58 01/18/20 07:58 Intake & Output 01/17/20 01/18/20 01/19/20 06:59 06:59 06:59 Intake Total 2631 1628 Output Total 3200 2575 Balance -569 -947 Weight 92.9 kg 93 kg General appearance: PRESENT: cooperative - The patient is cooperative but provides very limited feedback. Will stare at you and give minimal answers to questions., mild distress, well-developed Head exam: PRESENT: atraumatic, normocephalic Respiratory exam: PRESENT: clear to auscultation brennan, symmetrical, unlabored. ABSENT: prolonged expiratory phas, rales, rhonchi, tachypnea, wheezes Cardiovascular exam: PRESENT: RRR, +S1, +S2 GI/Abdominal exam: PRESENT: normal bowel sounds, soft. ABSENT: distended, guarding, mass, tenderness Rectal exam: PRESENT: deferred Extremities exam: ABSENT: pedal edema Musculoskeletal exam: PRESENT: normal inspection. ABSENT: deformity Neurological exam: PRESENT: alert, awake, oriented to person, oriented to place, oriented to situation, CN II-XII grossly intact Psychiatric exam: PRESENT: depressed, flat affect. ABSENT: agitated, anxious Results Laboratory Results: 01/18/20 10:26 01/18/20 10:26 01/18/20 01/18/20 10:26 10:26 WBC 5.4 RBC 3.37 L Hgb 9.3 L Hct 28.4 L MCV 84 MCH 27.7 MCHC 32.9 RDW 25.0 H Plt Count 83 L Seg Neutrophils % 62.7 Sodium 142.0 Potassium 4.3 Chloride 118 H Carbon Dioxide 16 L Anion Gap 8 BUN 26 H Creatinine 2.07 H Est GFR ( Amer) 28 L Glucose 154 H Calcium 8.5 Phosphorus 3.3 Magnesium 1.8 Albumin 2.6 L 01/14/20 11:10 Troponin I 0.014 Impressions: Chest X-Ray 01/16/20 00:00 IMPRESSION: Increased left basilar airspace disease- pleural effusion. Assessment and Plan - Diagnosis (1) Sepsis Qualifiers: Sepsis type: sepsis due to unspecified organism Sepsis acute organ dysfunction status: with acute organ dysfunction Severe sepsis acute organ dysfunction type: acute renal failure Acute renal failure type: with acute tubular necrosis Severe sepsis shock status: without septic shock Qualified Code(s): A41.9 - Sepsis, unspecified organism; R65.20 - Severe sepsis without se ptic shock; N17.0 - Acute kidney failure with tubular necrosis Is this a current diagnosis for this admission?: Yes (2) Acute kidney injury superimposed on chronic kidney disease Is this a current diagnosis for this admission?: Yes (3) Metabolic encephalopathy Is this a current diagnosis for this admission?: Yes (4) Dehydration Is this a current diagnosis for this admission?: Yes (5) Lactic acidemia Is this a current diagnosis for this admission?: Yes (6) Thrombocytopenia Is this a current diagnosis for this admission?: Yes (7) Hyperglycemia due to type 2 diabetes mellitus Qualifiers: Diabetes mellitus assistant terminal manager insulin use: without senior living use Qualified Code(s): E11.65 - Type 2 diabetes mellitus with hyperglycemia Is this a current diagnosis for this admission?: Yes (8) Dementia Qualifiers: Dementia type: Alzheimer's disease Alzheimer's disease onset: unspecified onset Dementia behavioral disturbance: without behavioral disturbance Qualified Code(s): G30.9 - Alzheimer's disease, unspecified; F02.80 - Dementia in other diseases classified elsewhere without behavioral disturbance Is this a current diagnosis for this admission?: Yes (9) Asthma Qualifiers: Asthma severity: mild Asthma persistence: intermittent Asthma complication type: with acute exacerbation Qualified Code(s): J45.21 - Mild intermittent asthma with (acute) exacerbation Is this a current diagnosis for this admission?: Yes (10) Hypertension Qualifiers: Hypertension type: essential hypertension Qualified Code(s): I10 - Essential (primary) hypertension Is this a current diagnosis for this admission?: Yes (11) Major depression Qualifiers: Major depression recurrence: recurrent Active/Remission status: currently active Major depression episode severity: moderate Qualified Code(s): F33.1 - Major depressive disorder, recurrent, moderate Is this a current diagnosis for this admission?: Yes (12) Iron deficiency anemia Qualifiers: Iron deficiency anemia type: inadequate dietary iron intake Qualified Code(s): D50.8 - Other iron deficiency anemias Is this a current diagnosis for this admission?: Yes (13) Gout Qualifiers: Gout site: unspecified site Gout etiology: unspecified cause Chronicity: chronic Presence of tophus: without tophus Qualified Code(s): M1A.9XX0 - Chronic gout, unspecified, without tophus (tophi) Is this a current diagnosis for this admission?: Yes (14) Hyperlipidemia Qualifiers: Hyperlipidemia type: unspecified Qualified Code(s): E78.5 - Hyperlipidemia, unspecified Is this a current diagnosis for this admission?: Yes (15) Urinary tract infection Qualifiers: Urinary tract infection type: acute cystitis Hematuria presence: with hematuria Qualified Code(s): N30.01 - Acute cystitis with hematuria Is this a current diagnosis for this admission?: Yes - Plan Summary Summary: 01/14/2020 The patient meets sepsis criteria due to the metabolic encephalopathy likely secondary to infection. She also has acute thrombocytopenia as well as acute on chronic kidney injury. She did exhibit a minimally elevated white blood cell count as well as an abnormal chest x-ray. The patient was put on broad-spectrum antibiotic therapy. Blood and urine cultures are pending. Acute on chronic kidney injury with dehydration and likely secondary to sepsis with acute tubular necrosis-the patient exhibits a marked decrease in renal function with significantly elevated BUN and creatinine. She does see nephrology locally and I will have Dr. Carmona consult. I believe she is very dehydrated and we are giving her aggressive fluids for the sepsis as well as the kidney failure. We will continue to monitor her renal function. Lactic acidemia-lactic acid levels are elevated. The patient was given multiple boluses of fluid and we will continue to monitor lactic acid levels. Metabolic encephalopathy secondary to infection with underlying dementia- continue current medications for dementia and will have as needed medication available for sundowning or agitation. Asthma-the patient has underlying asthma. She will be given nebulizer michelle tments but fortunately she is not hypoxic. Diabetes mellitus-there were no medications listed on her home medication list and we will monitor Accu-Cheks and utilize sliding scale coverage Iron deficiency anemia-it is more likely combination of iron deficiency anemia and anemia of chronic kidney disease. We will continue to monitor hemoglobin levels. Hypertension-the patient fortunately is not exhibiting hypotension/shock. We will continue antihypertensive medications with parameters to hold for low blood pressure. We will also continue the allopurinol for gout and statin therapy for her hype rlipidemia. Depression-we will continue the patient's SSRI medication. Because of the severity of the patient's illness she will be admitted to [facility] and monitored by telemetry and pulse oximetry in addition to routine vital signs, intake and output. 01/15/2020 The patient is doing much better from a sepsis standpoint. The aggressive fluids have helped. Her urine culture is positive with a preliminary identification of gram-negative bacilli. This certainly could be the source for the sepsis. Await final identification and sensitivities. We will continue her vancomycin and I have changed the aztreonam to ceftriaxone due to the kidney failure. The lactic acidemia has resolved as well. The kidney failure is improved as well. We will continue IV fluids but monitor intake and output closely as well as monitoring renal function to avoid hypervolemia. Hypertension-the patient did exhibit some bradycardia and so I have cut back on the metoprolol. The blood pressure still does not have room to resume her angiotensin receptor diego medication. We will monitor her blood pressure and when appropriate resume the ARB. Anemia-with volume expansion her hemoglobin dropped to 6.5. This does reflect significant hemoconcentration from the dehydration. We are going to administer 2 units of packed red blood cells and monitor closely. We will continue to monitor hemoglobin. There is some hematuria from the urinary tract infection but no gross blood loss at this time. Rinoiacg-Kxfd-Wjiab are improved. Continue sliding scale. Asthma is stable. Continue current regimen. The platelet count did drop even further. It is now below 100. I am going to continue to monitor and if the drop in hemoglobin is any indication the drop in platelets could be due to returning to normovolemia. We did make a therapeutic substitution and will use atorvastatin instead of her Rouvastatin. We are continuing the allopurinol for gout as well as the medications for dementia and depression. Because of the nephrotoxicity of vancomycin and aztreonam I did discontinue the aztreonam after questioning the patient and family about her reaction to penicillin. She did get hives and this was a long time ago. She does not remember being on any medication such as Ancef or Keflex or ceftriaxone. I explained that I wanted to reduce the renal toxicity if possible and that I wanted to try ceftriaxone. They were in agreement. With the urine culture preliminary results showing gram negative bacilli I may be able to discontinue the vancomycin as well. I will wait 24 more hours to see if the blood cultures remain negative. 01/16/2020 The patient seems very depressed today but could not focus on an answer for me as to why. As noted above I believe she is "sick of being sick ". Her aide was present and we are trying to see if there was any single reason or if it had to do more globally with her overall health. She is tolerating the ceftriaxone for her urinary tract infection. It is E. coli that is pansensitive. We will complete a course of antibiotic therapy. She is clearly very depressed. Which tends to make underlying dementia worse. I did ask her specifically, and she agreed, to have psychiatry come and speak with her. I told her that possibly we could make some changes in her medications that may make her feel better. Hemoglobin is back up to 9.6. She has borderline hypokalemia that we will need to correct. I have slowed her IV fluids and will try and encourage better oral intake. We will continue to monitor the patient on telemetry, follow Accu-Cheks, monitor intake and output and monitor laboratory studies. 01/17/2020 Psychiatry did see the patient. Medication recommendations were to discontinue the Prozac and start Depakote 250 mg twice daily. We are going to leave the benzodiazepine therapy in place for the time being. I have ordered a palliative care consult to educate her and her on different levels of treatment if she truly wants to move towards a hospice level or comfort measure plan. Her hemoglobin has dropped again today. I will order Hemoccult testing but it could be her iron deficiencies and compromised overall health. She did receive several units of packed red blood cells and it likely helps but it is hard to gauge based on her verbal responses. Her kidneys continue to improve. I did decrease the fluids somewhat as I want to be careful not to volume overload the patient. She is tolerating the ceftriaxone therapy despite her multiple medication allergies. Her diabetes remains reasonably controlled. Her vital signs remained stable although the pulse rate tends to be in the low normal range. I might consider decreasing her metoprolol somewhat. She is on a very low dose and I doubt very much that it contributes to any depressive symptoms. The nurse was in the room with me and we did spend some time talking about short-term rehab after discharge. She did have a stay in a facility in [place]. The corporate meeting planner did provide a list of home health agencies and longterm facilities. The is going to look at the list. We strongly encourage them to consider this route as she is still extremely weak. It would be unsafe for discharge to home. Physical therapy continues to work with the patient but her recovery will be slow. 01/18/2020 The patient remains very depressed. I am expecting a palliative care consult today. We made the suggested medication changes per psychiatry. Clearly these will not take effect immediately but hopefully in time will improve her emotio nal state. Her renal failure continues to improve. Continue current plan. Her hemoglobin is back up slightly. She tends to waver but over time will likely improve. Urinary tract infection reveals E. coli. Based on the sensitivity pattern ceftriaxone should be adequate. Her vital signs have been stable. Physical therapy has initiated work with her. She is still extremely weak. She will benefit from longterm placement or depending on her encounter with palliative care she may benefit from skilled placement and then return to home with a more palliative care plan in place. At this point I do not think she is quite medically appropriate for hospice care.
[2020-01-18] MEDS: METOPROLOL TARTRATE 25 MG TABLET PO SCH ×2 (16:00→22:21)
[2020-01-18] MEDS: NORMAL SALINE 1000 ML 1,000 ML IV PRN (20:35)
[2020-01-18] MEDS: ATORVASTATIN CALCIUM 40 MG TABLET PO SCH (22:21)
[2020-01-18] MEDS: DONEPEZIL HCL 5 MG TABLET PO SCH (22:21)
[2020-01-19] MEDS: HEPARIN SOD (PORCINE) 5,000 UNIT/ML 1 ML VIAL SUBCUT SCH ×3 (05:13→21:27)
[2020-01-19] MEDS: NORMAL SALINE 1000 ML 1,000 ML IV PRN (11:11)
[2020-01-19] MEDS: FLUTICASONE NASAL SPRAY 50 MCG/SPRY 120 SPRAY/16 GM NASL SCH (11:11)
[2020-01-19] MEDS: SODIUM BICARBONATE 650 MG TABLET PO SCH ×2 (11:13→18:45)
[2020-01-19] MEDS: ALPRAZOLAM 0.5 MG TABLET PO SCH ×2 (11:13→21:27)
[2020-01-19] MEDS: MEMANTINE HCL 10 MG TABLET PO SCH ×2 (11:14→21:27)
[2020-01-19] MEDS: ALLOPURINOL 100 MG TABLET PO SCH (11:14)
[2020-01-19] MEDS: PANTOPRAZOLE SODIUM 40 MG TABLET.DR PO SCH ×2 (11:14→18:45)
[2020-01-19] MEDS: FERROUS SULFATE 325 MG TABLET PO SCH ×2 (11:14→18:44)
[2020-01-19] MEDS: METOPROLOL TARTRATE 25 MG TABLET PO SCH ×2 (11:14→21:27)
[2020-01-19] MEDS: POTASSIUM CHLORIDE 10 MEQ TABLET.ER PO SCH (11:14)
[2020-01-19] MEDS: DIVALPROEX SODIUM 250 MG TAB.SR.24H PO SCH ×2 (11:15→21:35)
[2020-01-19] MEDS: CEFTRIAXONE 1 GM/D5W RTU 1 GM/50 ML RTUPB IV SCH (11:15)
[2020-01-19] MEDS ORDERED: FUROSEMIDE INJ/PF 20 MG/2 ML SDV IV ONE (16:07)
--- NOTE | 2020-01-19 16:11 | PDOC PROGRESS REPORT ---
Subjective Progress Note for:: 01/19/20 Subjective:: The patient has increased coughing. Nursing reports that she sounds "wet" and congested. Patient is still extremely depressed despite medication changes. Palliative care consult has been ordered. The family is choosing a skilled facility for short-term rehab. Reason For Visit: PNEUMONIA,ACUTE ON CHRONIC KIDNEY FAILURE, Physical Exam Vital Signs: Temp Pulse Resp BP Pulse Ox 98.3 F 65 18 136/40 H 100 01/19/20 12:33 01/19/20 14:00 01/19/20 12:33 01/19/20 12:33 01/19/20 12:33 Intake & Output 01/18/20 01/19/20 01/20/20 06:59 06:59 06:59 Intake Total 2628 810 1320 Output Total 2575 2050 500 Balance 53 -1240 820 Weight 93 kg 91.9 kg General appearance: PRESENT: cooperative, mild distress, well-developed Head exam: PRESENT: atraumatic, normocephalic Ear exam: PRESENT: normal external ear exam. ABSENT: bleeding, drainage Mouth exam: PRESENT: moist, tongue midline Respiratory exam: PRESENT: rhonchi - Increased work of breathing, symmetrical. ABSENT: tachypnea, wheezes Cardiovascular exam: PRESENT: RRR, +S1, +S2. ABSENT: diastolic murmur, systolic murmur, tachycardia GI/Abdominal exam: PRESENT: soft. ABSENT: distended, guarding, mass, tenderness Rectal exam: PRESENT: deferred Extremities exam: PRESENT: pedal edema - Trace Musculoskeletal exam: PRESENT: ambulatory - Still very weak. Beginning to work with physical therapy. Neurological exam: PRESENT: alert, awake, oriented to person, oriented to place, oriented to situation Psychiatric exam: PRESENT: depressed - Still with extremely depressed affect. ABSENT: agitated, anxious Focused psych exam: ABSENT: delusional, restlessness Results Laboratory Results: 01/18/20 10:26 01/18/20 10:26 01/19/20 13:42 Stool Occult Blood POSITIVE 01/14/20 12:57 Blood Blood Culture - Final NO GROWTH IN 5 DAYS 01/14/20 11:10 Troponin I 0.014 Impressions: Chest X-Ray 01/16/20 00:00 IMPRESSION: Increased left basilar airspace disease- pleural effusion. Assessment and Plan - Diagnosis (1) Sepsis Qualifiers: Sepsis type: sepsis due to unspecified organism Sepsis acute organ dysfunction status: with acute organ dysfunction Severe sepsis acute organ dysfunction type: acute renal failure Acute renal failure type: with acute tubular necrosis Severe sepsis shock status: without septic shock Qualified Code(s): A41.9 - Sepsis, unspecified organism; R65.20 - Severe sepsis without septic shock; N17.0 - Acute kidney failure with tubular necrosis Is this a current diagnosis for this admission?: Yes (2) Acute kidney injury superimposed on chronic kidney disease Is this a current diagnosis for this admission?: Yes (3) Metabolic encephalopathy Is this a current diagnosis for this admission?: Yes (4) Dehydration Is this a current diagnosis for this admission?: Yes (5) Lactic acidemia Is this a current diagnosis for this admission?: Yes (6) Thrombocytopenia Is this a current diagnosis for this admission?: Yes (7) Hyperglycemia due to type 2 diabetes mellitus Qualifiers: Diabetes mellitus spice mixer insulin use: without spice mixer use Qualified Code(s): E11.65 - Type 2 diabetes mellitus with hyperglycemia Is this a current diagnosis for this admission?: Yes (8) Dementia Qualifiers: Dementia type: Alzheimer's disease Alzheimer's disease onset: unspecified onset Dementia behavioral disturbance: without behavioral disturbance Qualified Code(s): G30.9 - Alzheimer's disease, unspecified; F02.80 - Dementia in other diseases classified elsewhere without behavioral disturbance Is this a current diagnosis for this admission?: Yes (9) Asthma Qualifiers: Asthma severity: mild Asthma persistence: intermittent Asthma complication type: with acute exacerbation Qualified Code(s): J45.21 - Mild intermittent asthma with (acute) exacerbation Is this a current diagnosis for this admission?: Yes (10) Hypertension Qualifiers: Hypertension type: essential hypertension Qualified Code(s): I10 - Essential (primary) hypertension Is this a current diagnosis for this admission?: Yes (11) Major depression Qualifiers: Major depression recurrence: recurrent Active/Remission status: currently active Major depression episode severity: moderate Qualified Code(s): F33.1 - Major depressive disorder, recurrent, moderate Is this a current diagnosis for this admission?: Yes (12) Iron deficiency anemia Qualifiers: Iron deficiency anemia type: inadequate dietary iron intake Qualified Code(s): D50.8 - Other iron deficiency anemias Is this a current diagnosis for this admission?: Yes (13) Gout Qualifiers: Gout site: unspecified site Gout etiology: unspecified cause Chronicity: chronic Presence of tophus: without tophus Qualified Code(s): M1A.9XX0 - Chronic gout, unspecified, without tophus (tophi) Is this a current diagnosis for this admission?: Yes (14) Hyperlipidemia Qualifiers: Hyperlipidemia type: unspecified Qualified Code(s): E78.5 - Hyperlipidemia, unspecified Is this a current diagnosis for this admission?: Yes (15) Urinary tract infection Qualifiers: Urinary tract infection type: acute cystitis Hematuria presence: with hematuria Qualified Code(s): N30.01 - Acute cystitis with hematuria Is this a current diagnosis for this admission?: Yes - Plan Summary Summary: 01/14/2020 The patient meets sepsis criteria due to the metabolic encephalopathy likely secondary to infection. She also has acute thrombocytopenia as well as acute on chronic kidney injury. She did exhibit a minimally elevated white blood cell count as well as an abnormal chest x-ray. The patient was put on broad-spectrum antibiotic therapy. Blood and urine cultures are pending. Acute on chronic kidney injury with dehydration and likely secondary to sepsis with acute tubular necrosis-the patient exhibits a marked decrease in renal function with significantly elevated BUN and creatinine. She does see nephrology locally and I will have Dr. Carmona consult. I believe she is very dehydrated and we are giving her aggressive fluids for the sepsis as well as the kidney failure. We will continue to monitor her renal function. Lactic acidemia-lactic acid levels are elevated. The patient was given multiple boluses of fluid and we will continue to monitor lactic acid levels. Metabolic encephalopathy secondary to infection with underlying dementia- continue current medications for dementia and will have as needed medication available for sundowning or agitation. Asthma-the patient has underlying asthma. She will be given nebulizer treatments but fortunately she is not hypoxic. Diabetes mellitus-there were no medications listed on her home medication list and we will monitor Accu-Cheks and utilize sliding scale coverage Iron deficiency anemia-it is more likely combination of iron deficiency anemia and anemia of chronic kidney disease. We will continue to monitor hemoglobin levels. Hypertension-the patient fortunately is not exhibiting hypotension/shock. We will continue antihypertensive medications with parameters to hold for low blood pressure. We will also continue the allopurinol for gout and statin therapy for her hyperlipidemia. Depression-we will continue the patient's SSRI medication. Because of the severity of the patient's illness she will be admitted to IM and monitored by telemetry and pulse oximetry in addition to routine vital signs, intake and output. 01/15/2020 The patient is doing much better from a sepsis standpoint. The aggressive fluids have helped. Her urine culture is positive with a preliminary identification of gram-negative bacilli. This certainly could be the source for the sepsis. Await final identification and sensitivities. We will continue her vancomycin and I have changed the aztreonam to ceftriaxone due to the kidney failure. The lactic acidemia has resolved as well. The kidney failure is improved as well. We will continue IV fluids but monitor intake and output closely as well as monitoring renal function to avoid hypervolemia. Hypertension-the patient did exhibit some bradycardia and so I have cut back on the metoprolol. The blood pressure still does not have room to resume her angiotensin receptor diego medication. We will monitor her blood pressure and when appropriate resume the ARB. Anemia-with volume expansion her hemoglobin dropped to 6.5. This does reflect significant hemoconcentration from the dehydration. We are going to administer 2 units of packed red blood cells and monitor closely. We will continue to monitor hemoglobin. There is some hematuria from the urinary tract infection but no gross blood loss at this time. Igfhbcvu-Kldm-Dldhv are improved. Continue sliding scale. Asthma is stable. Continue current regimen. The platelet count did drop even further. It is now below 100. I am going to continue to monitor and if the drop in hemoglobin is any indication the drop in platelets could be due to returning to normovolemia. We did make a therapeutic substitution and will use atorvastatin instead of her Rouvastatin. We are continuing the allopurinol for gout as well as the medications for dementia and depression. Because of the nephrotoxicity of vancomycin and aztreonam I did discontinue the aztreonam after questioning the patient and family about her reaction to penicillin. She did get hives and this was a long time ago. She does not remember being on any medication such as Ancef or Keflex or ceftriaxone. I explained that I wanted to reduce the renal toxicity if possible and that I wanted to try ceftriaxone. They were in agreement. With the urine culture preliminary results showing gram negative bacilli I may be able to discontinue the vancomycin as well. I will wait 24 more hours to see if the blood cultures remain negative. 01/16/2020 The patient seems very depressed today but could not focus on an answer for me as to why. As noted above I believe she is "sick of being sick ". Her aide was present and we are trying to see if there was any single reason or if it had to do more globally with her overall health. She is tolerating the ceftriaxone for her urinary tract infection. It is E. coli that is pansensitive. We will complete a course of antibiotic therapy. She is clearly very depressed. Which tends to make underlying dementia worse. I did ask her specifically, and she agreed, to have psychiatry come and speak with her. I told her that possibly we could make some changes in her medications that may make her feel better. Hemoglobin is back up to 9.6. She has borderline hypokalemia that we will need to correct. I have slowed her IV fluids and will try and encourage better oral intake. We will continue to monitor the patient on telemetry, follow Accu-Cheks, monitor intake and output and monitor laboratory studies. 01/17/2020 Psychiatry did see the patient. Medication recommendations were to discontinue the Prozac and start Depakote 250 mg twice daily. We are going to leave the benzodiazepine therapy in place for the time being. I have ordered a palliative care consult to educate her and her on different levels of treatment if she truly wants to move towards a hospice level or comfort measure plan. Her hemoglobin has dropped again today. I will order Hemoccult testing but it could be her iron deficiencies and compromised overall health. She did receive several units of packed red blood cells and it likely helps but it is hard to gauge based on her verbal responses. Her kidneys continue to improve. I did decrease the fluids somewhat as I want to be careful not to volume overload the patient. She is tolerating the ceftriaxone therapy despite her multiple medication allergies. Her diabetes remains reasonably controlled. Her vital signs remained stable although the pulse rate tends to be in the low normal range. I might consider decreasing her metoprolol somewhat. She is on a very low dose and I doubt very much that it contributes to any depressive symptoms. The nurse was in the room with me and we did spend some time talking about short-term rehab after discharge. She did have a stay in a facility in [place]. The capacity planner did provide a list of home health agencies and halfway facilities. The is going to look at the list. We strongly encourage them to consider this route as she is still extremely weak. It would be unsafe for discharge to home. Physical therapy continues to work with the patient but her recovery will be slow. 01/18/2020 The patient remains very depressed. I am expecting a palliative care consult today. We made the suggested medication changes per psychiatry. Clearly these will not take effect immediately but hopefully in time will improve her emotional state. Her renal failure continues to improve. Continue current plan. Her hemoglobin is back up slightly. She tends to waver but over time will likely improve. Urinary tract infection reveals E. coli. Based on the sensitivity pattern ceftriaxone should be adequate. Her vital signs have been stable. Physical therapy has initiated work with her. She is still extremely weak. She will benefit from halfway placement or depending on her encounter with palliative care she may benefit from skilled placement and then return to home with a more palliative care plan in place. At this point I do not think she is quite medically appropriate for hospice care. 01/19/2020 The patient still looks horribly depressed. I agree that she requires diuretics. We have been holding her furosemide due to the acute kidney injury and giving her fluids. Sepsis resolved Because of the acute kidney injury the diuretics were held and she was getting IV fluids. Because of her not positive fluid balance she is congested. I will add back her furosemide. She does not have hyperglycemia anymore. That is resolved. Her anemia has been stable. She still has thrombocytopenia but this is stable. Asthma is under control and as noted above I believe the congested breath sounds are from a volume issue. She remains on ceftriaxone for the urinary tract infection that led to sepsis. She still is extremely depressed. I did make the medication changes suggested by psychiatry. Palliative care consult was placed. Await results from their interaction. We will continue her other baseline medications for her comorbidities. She remains on telemetry monitoring with regular vital signs and we continue to monitor her laboratory studies. She will require halfway facility placement for her profound weakness (physical therapy continues to work with the patient's) and her is reviewing facilities. - Time Time Spent with patient: 15-24 minutes Medications reviewed and adjusted accordingly: Yes Anticipated discharge: SNF
--- NOTE | 2020-01-19 19:31 | RADIOLOGY REPORT (SQ) ---
EXAM DESCRIPTION: CHEST SINGLE VIEW COMPLETED DATE/TIME: 01/19/2020 5:55 pm REASON FOR STUDY: Heart failure COMPARISON: 01/16/2020 TECHNIQUE: Single frontal radiographic view of the chest acquired. NUMBER OF VIEWS: One view. LIMITATIONS: None. FINDINGS: LUNGS AND PLEURA: No pneumothorax. Similar patchy left basilar airspace opacities and int erstitial thickening bilaterally. No significant Pleural effusion. MEDIASTINUM AND HILAR STRUCTURES: Stable. HEART AND VASCULAR STRUCTURES: Stable. BONES: No acute findings. HARDWARE: None in the chest. OTHER: No other significant finding. IMPRESSION: Similar patchy left basilar airspace opacities and interstitial thickening bilaterally. No significant Pleural effusion. TECHNICAL DOCUMENTATION: JOB ID: [id number] [place]-72 2010 [employer]- All Rights Reserved Reading location - IP/workstation name: [email or web address]
[2020-01-19] MEDS: ATORVASTATIN CALCIUM 40 MG TABLET PO SCH (21:27)
[2020-01-19] MEDS: DONEPEZIL HCL 5 MG TABLET PO SCH (21:27)
[2020-01-20] MEDS: FLUTICASONE NASAL SPRAY 50 MCG/SPRY 120 SPRAY/16 GM NASL SCH ×3 (01:44→22:03)
[2020-01-20] MEDS: HEPARIN SOD (PORCINE) 5,000 UNIT/ML 1 ML VIAL SUBCUT SCH ×3 (05:11→22:02)
[2020-01-20 05:43] LABS: ABSOLUTE BASOPHILS # (AUTO) 0.1 10^3/uL (0.0-0.2); ABSOLUTE EOSINOPHILS # (AUTO) 0.4 10^3/uL (0.0-0.6); ABSOLUTE LYMPHOCYTES (AUTO) 1.3 10^3/uL (0.5-4.7); ABSOLUTE MONOCYTES (AUTO) 0.6 10^3/uL (0.1-1.4); ABSOLUTE NEUT (AUTO) 2.6 10^3/uL (1.7-8.2); BASOPHILS % (AUTO) 1.2 % (0-2); HEMATOCRIT 25.8 % (36.0-47.0); HEMOGLOBIN 8.7 g/dL (12.0-15.5); LYMPHOCYTES % (AUTO) 26.6 % (13-45); MEAN CORPUSCULAR HEMOGLOBIN 28.5 pg (27.0-33.4); MEAN CORPUSCULAR HGB CONC 33.6 g/dL (32.0-36.0); MEAN CORPUSCULAR VOLUME 85 fl (80-97); MONOCYTES % (AUTO) 11.7 % (3-13); RED BLOOD COUNT 3.04 10^6/uL (3.72-5.28); RED CELL DISTRIBUTION WIDTH 25.1 % (11.5-14.0); SEGMENTED NEUTROPHILS % (AUTO) 52.5 % (42-78); TOTAL CELLS COUNTED % (AUTO) 100 %; WHITE BLOOD COUNT 4.9 10^3/uL (4.0-10.5)
[2020-01-20 06:10] LABS: ALBUMIN 2.4 g/dL (3.5-5.0); ANION GAP 6 (5-19); BLOOD UREA NITROGEN 19 mg/dL (7-20); CALCIUM 8.5 mg/dL (8.4-10.2); CARBON DIOXIDE 20 mmol/L (22-30); CHLORIDE 115 mmol/L (98-107); GLUCOSE 92 mg/dL (75-110); POTASSIUM 3.6 mmol/L (3.6-5.0)
[2020-01-20 06:19] LABS: PLATELET COUNT 91 10^3/uL (150-450)
[2020-01-20 06:40] LABS: ANISOCYTOSIS 3+; POIKILOCYTOSIS 1+; TEAR DROP CELLS SLIGHT
[2020-01-20 06:41] LABS: OVALOCYTES SLIGHT; POLYCHROMASIA SLIGHT
[2020-01-20 06:42] LABS: PLATELET COMMENT DECREASED
[2020-01-20] MEDS: POTASSIUM CHLORIDE 10 MEQ TABLET.ER PO SCH (09:37)
[2020-01-20] MEDS: PANTOPRAZOLE SODIUM 40 MG TABLET.DR PO SCH ×2 (09:38→17:33)
[2020-01-20] MEDS: FUROSEMIDE 20 MG TABLET PO SCH (09:38)
[2020-01-20] MEDS: METOPROLOL TARTRATE 25 MG TABLET PO SCH ×2 (09:38→22:01)
[2020-01-20] MEDS: SODIUM BICARBONATE 650 MG TABLET PO SCH ×2 (09:38→17:33)
[2020-01-20] MEDS: MEMANTINE HCL 10 MG TABLET PO SCH ×2 (09:39→22:02)
[2020-01-20] MEDS: FERROUS SULFATE 325 MG TABLET PO SCH ×2 (09:39→17:33)
[2020-01-20] MEDS: ALPRAZOLAM 0.5 MG TABLET PO SCH ×2 (09:39→22:01)
[2020-01-20] MEDS: ALLOPURINOL 100 MG TABLET PO SCH (09:39)
[2020-01-20] MEDS: CEFTRIAXONE 1 GM/D5W RTU 1 GM/50 ML RTUPB IV SCH (09:40)
[2020-01-20] MEDS: DIVALPROEX SODIUM 250 MG TAB.SR.24H PO SCH ×2 (09:40→22:01)
[2020-01-20] MEDS ORDERED: FUROSEMIDE 40 MG TABLET PO SCH (10:00)
--- NOTE | 2020-01-20 18:57 | PDOC PROGRESS REPORT ---
Subjective Progress Note for:: 01/20/20 Subjective:: Patient is a 79-year-old female with past medical history of NV, asthma, DM 2, GERD, arthritis, gout, dementia, depression who was admitted 01/14/2020 with SIRS; found to have a urinary tract infection. Patient was seen on morning rounds with her private duty nurse and at bedside. She is resting comfortably on room air. She is alert and oriented to self and place but not situation or time. Per nurse, she is at her baseline mentation. Patient does continue to have a wet sounding cough but denies sputum production, dyspnea, palpitations, chest pain, abdominal pain, nausea vomiting and diarrhea. She is now agreeable to discharge to SNF for short-term rehab. We have no questions or concerns at this time. No concerns per nursing. Reason For Visit: PNEUMONIA,ACUTE ON CHRONIC KIDNEY FAILURE, Physical Exam Vital Signs: Temp Pulse Resp BP Pulse Ox 97.4 F 60 16 126/65 H 100 01/20/20 07:27 01/20/20 14:00 01/20/20 07:27 01/20/20 07:27 01/20/20 07:27 Intake & Output 01/19/20 01/20/20 01/21/20 06:59 06:59 06:59 Intake Total 810 1770 885 Output Total 2050 6235 1999 Balance -3859 -4433 -1114 Weight 91.9 kg 90.5 kg General appearance: PRESENT: no acute distress, cooperative, hard of hearing, morbidly obese, well-developed, well-nourished Head exam: PRESENT: atraumatic, normocephalic Eye exam: PRESENT: conjunctiva pink, EOMI, PERRLA. ABSENT: scleral icterus Mouth exam: PRESENT: moist, tongue midline Teeth exam: PRESENT: poor dentation Respiratory exam: PRESENT: rhonchi, symmetrical, unlabored, other - Room air. ABSENT: rales, wheezes Cardiovascular exam: PRESENT: RRR, +S1, +S2. ABSENT: diastolic murmur, rubs, systolic murmur Pulses: PRESENT: normal dorsalis pedis pul Vascular exam: PRESENT: normal capillary refill GI/Abdominal exam: PRESENT: normal bowel sounds, soft. ABSENT: distended, guarding, mass, organolmegaly, rebound, tenderness Rectal exam: PRESENT: deferred Gentrourinary exam: PRESENT: indwelling catheter Extremities exam: PRESENT: full ROM, pedal edema - Trace bilaterally. ABSENT: calf tenderness, clubbing Neurological exam: PRESENT: alert, awake, oriented to person, oriented to place, CN II-XII grossly intact, other - Baseline mentation per private duty nurse. ABSENT: oriented to time, oriented to situation, motor sensory deficit Psychiatric exam: PRESENT: flat affect, normal mood. ABSENT: homicidal i deation, suicidal ideation Skin exam: PRESENT: dry, intact, warm. ABSENT: cyanosis, rash Results Laboratory Results: 01/20/20 05:13 01/20/20 05:13 01/20/20 01/20/20 05:13 05:13 WBC 4.9 RBC 3.04 L Hgb 8.7 L Hct 25.8 L MCV 85 MCH 28.5 MCHC 33.6 RDW 25.1 H Plt Count 91 L Seg Neutrophils % 52.5 Sodium 141.1 Potassium 3.6 Chloride 115 H Carbon Dioxide 20 L Anion Gap 6 BUN 19 Creatinine 1.66 H Est GFR ( Amer) 36 L Glucose 92 Calcium 8.5 Phosphorus 3.0 Magnesium 1.8 Albumin 2.4 L 01/14/20 11:10 Troponin I 0.014 Impressions: Chest X-Ray 01/19/20 00:00 IMPRESSION: Similar patchy left basilar airspace opacities and interstitial thickening bilaterally. No significant Pleural effusion. Assessment and Plan - Diagnosis (1) Urinary tract infection Qualifiers: Urinary tract infection type: acute cystitis Hematuria presence: with hematuria Qualified Code(s): N30.01 - Acute cystitis with hematuria Is this a current diagnosis for this admission?: Yes Plan: Urine culture shows gram-positive pansensitive E. coli. Continue IV Rocephin; day #4 Received Azactam and vancomycin x2 days. (2) Acute kidney injury superimposed on chronic kidney disease Is this a current diagnosis for this admission?: Yes Plan: Significantly improved Cr 5.11-> 1.66; baseline 1.32 Secondary to UTI/Sepsis. Encourage p.o. fluids. IV fluids have been discontinued. Optimize cardiac output. Strict I&O's. Remove Gannon catheter Avoid nephrotoxic medications as able. Follow-up chemistry. (3) Obesity (BMI 30-39.9) Is this a current diagnosis for this admission?: Yes Plan: BMI 35.3 Lifestyle modification dietary discretion advised. Consistent carb/cardiac diet. (4) Asthma Qualifiers: Asthma severity: mild Asthma persistence: intermittent Asthma complication type: with acute exacerbation Qualified Code(s): J45.21 - Mild intermittent asthma with (acute) exacerbation Is this a current diagnosis for this admission?: Yes Plan: Acute exacerbation is significantly improved. Decreased oxygen requirement. Continue as needed nebulizer treatments. No further need for steroid therapy. (5) Dehydration Is this a current diagnosis for this admission?: Yes Plan: Resolved. Continue to encourage p.o. fluids. (6) Dementia Qualifiers: Dementia type: Alzheimer's disease Alzheimer's disease onset: unspecified onset Dementia behavioral disturbance: without behavioral disturbance Qualified Code(s): G30.9 - Alzheimer's disease, unspecified; F02.80 - Dementia in other diseases classified elsewhere without behavioral disturbance Is this a current diagnosis for this admission?: Yes Plan: Continue home dose Aricept, Namenda, and Xanax. Continue Depakote. Supportive care. Fall precautions. (7) Gout Qualifiers: Gout site: unspecified site Gout etiology: unspecified cause Chronicity: chronic Presence of tophus: without tophus Qualified Code(s): M1A.9XX0 - Chronic gout, unspecified, without tophus (tophi) Is this a current diagnosis for this admission?: Yes Plan: Continue home dose allopurinol. (8) Hyperlipidemia Qualifiers: Hyperlipidemia type: unspecified Qualified Code(s): E78.5 - Hyperlipidemia, unspecified Is this a current diagnosis for this admission?: Yes (9) Hypertension Qualifiers: Hypertension type: essential hypertension Qualified Code(s): I10 - Essential (primary) hypertension Is this a current diagnosis for this admission?: Yes Plan: Continue home dose statin (10) Iron deficiency anemia Qualifiers: Iron deficiency anemia type: inadequate dietary iron intake Qualified Code(s): D50.8 - Other iron deficiency anemias Is this a current diagnosis for this admission?: Yes Plan: Iron deficiency anemia. No evidence of active bleeding at this time. Hemoglobin is stable at 8.7. Continue supplemental ferrous sulfate. (11) Lactic acidemia Is this a current diagnosis for this admission?: Yes Plan: Resolved. Secondary to sepsis from UTI. (12) Major depression Qualifiers: Major depression recurrence: recurrent Active/Remission status: currently active Major depression episode severity: moderate Qualified Code(s): F33.1 - Major depressive disorder, recurrent, moderate Is this a current diagnosis for this admission?: Yes Plan: Continue Aricept/Namenda Depakote. Consider SSRI (13) Metabolic encephalopathy Is this a current diagnosis for this admission?: Yes Plan: Resolved. Secondary to sepsis. Per patient and private duty nurse, patient has returned to her baseline mentation. (14) Sepsis Qualifiers: Sepsis type: sepsis due to unspecified organism Sepsis acute organ dysfunction status: with acute organ dysfunction Severe sepsis acute organ dysfunction type: acute renal failure Acute renal failure type: with acute tubular necrosis Severe sepsis shock status: without septic shock Qualified Code(s): A41.9 - Sepsis, unspecified organism; R65.20 - Severe sepsis without septic shock; N17.0 - Acute kidney failure with tubular necrosis Is this a current diagnosis for this admission?: Yes Plan: Resolved. Secondary to UTI (15) Thrombocytopenia Is this a current diagnosis for this admission?: Yes Plan: Trending up; PLT 73-> 91 Secondary to acute infection/sepsis. - Time Time Spent with patient: 25-34 minutes Medications reviewed and adjusted accordingly: Yes Anticipated discharge: SNF Within: within 24 hours, when bed available
[2020-01-20] MEDS: ATORVASTATIN CALCIUM 40 MG TABLET PO SCH (22:01)
[2020-01-20] MEDS: DONEPEZIL HCL 5 MG TABLET PO SCH (22:02)
[2020-01-21] MEDS: HEPARIN SOD (PORCINE) 5,000 UNIT/ML 1 ML VIAL SUBCUT SCH ×3 (05:12→21:01)
[2020-01-21 05:17] LABS: ANION GAP 5 (5-19); BLOOD UREA NITROGEN 18 mg/dL (7-20); CALCIUM 8.5 mg/dL (8.4-10.2); CARBON DIOXIDE 22 mmol/L (22-30); CHLORIDE 112 mmol/L (98-107); GLUCOSE 90 mg/dL (75-110); POTASSIUM 4.1 mmol/L (3.6-5.0)
[2020-01-21 05:32] LABS: HEMATOCRIT 25.6 % (36.0-47.0); HEMOGLOBIN 8.6 g/dL (12.0-15.5); MEAN CORPUSCULAR HEMOGLOBIN 28.3 pg (27.0-33.4); MEAN CORPUSCULAR HGB CONC 33.6 g/dL (32.0-36.0); MEAN CORPUSCULAR VOLUME 84 fl (80-97); PLATELET COUNT 100 10^3/uL (150-450); RED BLOOD COUNT 3.03 10^6/uL (3.72-5.28); RED CELL DISTRIBUTION WIDTH 25.6 % (11.5-14.0); WHITE BLOOD COUNT 5.4 10^3/uL (4.0-10.5)
[2020-01-21] MEDS: ALPRAZOLAM 0.5 MG TABLET PO SCH (10:52)
[2020-01-21] MEDS: POTASSIUM CHLORIDE 10 MEQ TABLET.ER PO SCH (10:52)
[2020-01-21] MEDS: METOPROLOL TARTRATE 25 MG TABLET PO SCH ×2 (10:53→21:10)
[2020-01-21] MEDS: FUROSEMIDE 20 MG TABLET PO SCH (10:53)
[2020-01-21] MEDS: SODIUM BICARBONATE 650 MG TABLET PO SCH ×2 (10:53→18:18)
[2020-01-21] MEDS: ALLOPURINOL 100 MG TABLET PO SCH (10:53)
[2020-01-21] MEDS: DIVALPROEX SODIUM 250 MG TAB.SR.24H PO SCH (10:54)
[2020-01-21] MEDS: FERROUS SULFATE 325 MG TABLET PO SCH ×2 (10:54→18:18)
[2020-01-21] MEDS: FLUTICASONE NASAL SPRAY 50 MCG/SPRY 120 SPRAY/16 GM NASL SCH ×2 (10:54→21:08)
[2020-01-21] MEDS: MEMANTINE HCL 10 MG TABLET PO SCH ×2 (10:54→21:08)
[2020-01-21] MEDS: CEFTRIAXONE 1 GM/D5W RTU 1 GM/50 ML RTUPB IV SCH (10:55)
[2020-01-21] MEDS: PANTOPRAZOLE SODIUM 40 MG TABLET.DR PO SCH ×2 (10:55→18:18)
--- NOTE | 2020-01-21 18:35 | PDOC PROGRESS REPORT ---
Subjective Progress Note for:: 01/21/20 Subjective:: Patient is a 79-year-old female with past medical history of [place], asthma, DM 2, GERD, arthritis, gout, dementia, depression who was admitted 01/14/2020 with SIRS; found to have a urinary tract infection. Patient was seen on morning rounds with her private duty nurse (who has cared for her for a long period of time and knows her well) at bedside. She is resting comfortably on supplemental oxygen via [place]; she is not home O2 dependent. She is alert and oriented to self, place and situation, but not time. Per nurse, she is at her baseline mentation. Patient does continue to have a wet sounding cough but denies sputum production, dyspnea, palpitations, chest pain, abdominal pain, nausea vomiting and diarrhea. She is now agreeable to discharge to SNF for short-term rehab. They are concerned about development of Stage II pressure wound to left hip. No concerns per nursing. Reason For Visit: PNEUMONIA,ACUTE ON CHRONIC KIDNEY FAILURE, Physical Exam Vital Signs: Temp Pulse Resp BP Pulse Ox 98.0 F 68 18 118/38 L 98 01/21/20 07:11 01/21/20 14:00 01/21/20 07:11 01/21/20 07:11 01/21/20 07:11 Intake & Output 01/20/20 01/21/20 01/22/20 06:59 06:59 06:59 Intake Total 1770 935 800 Output Total 3625 3375 Balance -1855 -2440 800 Weight 90.5 kg 90.4 kg General appearance: PRESENT: no acute distress, cooperative, hard of hearing, morbidly obese, well-developed, well-nourished Head exam: PRESENT: atraumatic, normocephalic Eye exam: PRESENT: conjunctiva pink, EOMI, PERRLA. ABSENT: scleral icterus Ear exam: PRESENT: normal external ear exam Mouth exam: PRESENT: moist, tongue midline Teeth exam: PRESENT: poor dentation Respiratory exam: PRESENT: rhonchi, symmetrical, unlabored, other - Supplemental oxygen via nasal cannula. ABSENT: rales, wheezes Cardiovascular exam: PRESENT: RRR, +S1. ABSENT: diastolic murmur, rubs, sy stolic murmur Pulses: PRESENT: normal dorsalis pedis pul Vascular exam: PRESENT: normal capillary refill GI/Abdominal exam: PRESENT: normal bowel sounds, soft. ABSENT: distended, guarding, mass, organolmegaly, rebound, tenderness Rectal exam: PRESENT: deferred Gentrourinary exam: ABSENT: indwelling catheter Extremities exam: PRESENT: full ROM. ABSENT: calf tenderness, clubbing, pedal edema Neurological exam: PRESENT: alert, awake, oriented to person, oriented to place, oriented to time, CN II-XII grossly intact, other - At baseline mentation. ABSENT: motor sensory deficit Psychiatric exam: PRESENT: depressed, flat affect. ABSENT: homicidal ideation, suicidal ideation Skin exam: PRESENT: dry, intact, warm. ABSENT: cyanosis, rash Results Laboratory Results: 01/21/20 04:26 01/21/20 04:26 01/21/20 01/21/20 04:26 04:26 WBC 5.4 RBC 3.03 L Hgb 8.6 L Hct 25.6 L MCV 84 MCH 28.3 MCHC 33.6 RDW 25.6 H Plt Count 100 L Sodium 139.3 Potassium 4.1 Chloride 112 H Carbon Dioxide 22 Anion Gap 5 BUN 18 Creatinine 1.46 H Est GFR ( Amer) 42 L Glucose 90 Calcium 8.5 01/14/20 11:10 Troponin I 0.014 Impressions: Chest X-Ray 01/19/20 00:00 IMPRESSION: Similar patchy left basilar airspace opacities and interstitial thickening bilaterally. No significant Pleural effusion. Assessment and Plan - Diagnosis (1) Urinary tract infection Qualifiers: Urinary tract infection type: acute cystitis Hematuria presence: with hematuria Qualified Code(s): N30.01 - Acute cystitis with hematuria Is this a current diagnosis for this admission?: Yes Plan: Urine culture shows gram-positive pansensitive E. coli. Continue IV Rocephin; day #5. Will discontinue after today's dose. Received Azactam and vancomycin x2 days. (2) Acute kidney injury superimposed on chronic kidney disease Is this a current diagnosis for this admission?: Yes Plan: Significantly improved Cr 5.11-> 1.66-> 1.46; baseline 1.32 Secondary to UTI/Sepsis. Encourage p.o. fluids. IV fluids have been discontinued. Optimize cardiac output. Strict I&O's. Have removed Gannon catheter Avoid nephrotoxic medications as able. Follow-up chemistry. (3) Obesity (BMI 30-39.9) Is this a current diagnosis for this admission?: Yes Plan: BMI 35.3 Lifestyle modification dietary discretion advised. Consistent carb/cardiac diet. (4) Asthma Qualifiers: Asthma severity: mild Asthma persistence: intermittent Asthma complication type: with acute exacerbation Qualified Code(s): J45.21 - Mild intermittent asthma with (acute) exacerbation Is this a current diagnosis for this admission?: Yes Plan: Acute exacerbation is significantly improved. Decreased oxygen requirement. Continue as needed nebulizer treatments. Robitussin as needed. No further need for steroid therapy. (5) Dehydration Is this a current diagnosis for this admission?: Yes Plan: Resolved. Continue to encourage p.o. fluids. (6) Dementia Qualifiers: Dementia type: Alzheimer's disease Alzheimer's disease onset: unspecified onset Dementia behavioral disturbance: without behavioral disturbance Qualified Code(s): G30.9 - Alzheimer's disease, unspecified; F02.80 - Dementia in other diseases classified elsewhere without behavioral disturbance Is this a current diagnosis for this admission?: Yes Plan: Continue home dose Aricept, Namenda, and Xanax. Will stop Depakote r/t depressive sx/fatigue/lethargy. Supportive care. Fall precautions. (7) Gout Qualifiers: Gout site: unspecified site Gout etiology: unspecified cause Chronicity: chronic Presence of tophus: without tophus Qualified Code(s): M1A.9XX0 - Chronic gout, unspecified, without tophus (tophi) Is this a current diagnosis for this admission?: Yes Plan: Continue home dose allopurinol. (8) Hyperlipidemia Qualifiers: Hyperlipidemia type: unspecified Qualified Code(s): E78.5 - Hyperlipidemia, unspecified Is this a current diagnosis for this admission?: Yes Plan: Cardiac diet Home dose statin (9) Hypertension Qualifiers: Hypertension type: essential hypertension Qualified Code(s): I10 - Essential (primary) hypertension Is this a current diagnosis for this admission?: Yes Plan: Continue home dose metoprolol and furosemide. Cardiac diet (10) Iron deficiency anemia Qualifiers: Iron deficiency anemia type: inadequate dietary iron intake Qualified Code(s): D50.8 - Other iron deficiency anemias Is this a current diagnosis for this admission?: Yes Plan: Iron deficiency anemia. No evidence of active bleeding at this time. Hemoglobin is stable at 8.7. Continue supplemental ferrous sulfate. (11) Lactic acidemia Is this a current diagnosis for this admission?: Yes Plan: Resolved. Secondary to sepsis from UTI. (12) Major depression Qualifiers: Major depression recurrence: recurrent Active/Remission status: currently active Major depression episode severity: moderate Qualified Code(s): F33.1 - Major depressive disorder, recurrent, moderate Is this a current diagnosis for this admission?: Yes Plan: Continue Aricept/Namenda Depakote. Will stop Depakote r/t depressive sx/fatigue/lethargy. Trial Wellbutrin. (13) Metabolic encephalopathy Is this a current diagnosis for this admission?: Yes Plan: Resolved. Secondary to sepsis. Per patient and private duty nurse, patient has returned to her baseline mentation. (14) Sepsis Qualifiers: Sepsis type: sepsis due to unspecified organism Sepsis acute organ dysfunction status: with acute organ dysfunction Severe sepsis acute organ dysfunction type: acute renal failure Acute renal failure type: with acute tubular necrosis Severe sepsis shock status: without septic shock Qualified Code(s): A41.9 - Sepsis, unspecified organism; R65.20 - Severe sepsis without septic shock; N17.0 - Acute kidney failure with tubular necrosis Is this a current diagnosis for this admission?: Yes Plan: Resolved. Secondary to UTI (15) Thrombocytopenia Is this a current diagnosis for this admission?: Yes Plan: Trending up; PLT 73-> 91-> 100 Secondary to acute infection/sepsis. (16) Stage II pressure sore Qualifiers: Pressure injury location: buttock Laterality: left Qualified Code(s): L89.322 - Pressure ulcer of left buttock, stage 2 Is this a current diagnosis for this admission?: Yes Plan: Silvadene to open areas. Allevyn dressing. Every 2 turns. - Time Time Spent with patient: 35 or more minutes Medications reviewed and adjusted accordingly: Yes Anticipated discharge: SNF Within: when bed available
[2020-01-21] MEDS: BUPROPION HCL 75 MG TABLET PO SCH (21:08)
[2020-01-21] MEDS: ATORVASTATIN CALCIUM 40 MG TABLET PO SCH (21:08)
[2020-01-21] MEDS: DONEPEZIL HCL 5 MG TABLET PO SCH (21:09)
[2020-01-21] MEDS: SILVER SULFADIAZINE 1% CREAM 25 GM TP SCH (21:09)
[2020-01-22] MEDS: HEPARIN SOD (PORCINE) 5,000 UNIT/ML 1 ML VIAL SUBCUT SCH ×3 (06:13→21:20)
[2020-01-22] MEDS: GUAIFENESIN SYRP 200 MG/10 ML UDC PO SCH ×3 (06:17→17:16)
[2020-01-22] MEDS: FUROSEMIDE 20 MG TABLET PO SCH (10:24)
[2020-01-22] MEDS: BUPROPION HCL 75 MG TABLET PO SCH ×2 (10:24→21:20)
[2020-01-22] MEDS: SODIUM BICARBONATE 650 MG TABLET PO SCH ×2 (10:25→17:16)
[2020-01-22] MEDS: MEMANTINE HCL 10 MG TABLET PO SCH ×2 (10:25→21:19)
[2020-01-22] MEDS: METOPROLOL TARTRATE 25 MG TABLET PO SCH ×2 (10:25→21:19)
[2020-01-22] MEDS: FERROUS SULFATE 325 MG TABLET PO SCH ×2 (10:26→17:16)
[2020-01-22] MEDS: PANTOPRAZOLE SODIUM 40 MG TABLET.DR PO SCH ×2 (10:26→17:16)
[2020-01-22] MEDS: POTASSIUM CHLORIDE 10 MEQ TABLET.ER PO SCH (10:26)
[2020-01-22] MEDS: ALLOPURINOL 100 MG TABLET PO SCH (10:26)
[2020-01-22] MEDS: FLUTICASONE NASAL SPRAY 50 MCG/SPRY 120 SPRAY/16 GM NASL SCH ×2 (10:26→21:20)
--- NOTE | 2020-01-22 17:10 | PDOC TRANSFER SUMMARY ---
Impression - Admit/DC Date/PCP Admission Date/Primary Care Provider: 01/14/20 14:18 Discharge Date: 01/22/20 - Discharge Diagnosis (1) Urinary tract infection Is this a current diagnosis for this admission?: Yes (2) Acute kidney injury superimposed on chronic kidney disease Is this a current diagnosis for this admission?: Yes (3) Obesity (BMI 30-39.9) Is this a current diagnosis for this admission?: Yes (4) Asthma Is this a current diagnosis for this admission?: Yes (5) Dehydration Is this a current diagnosis for this admission?: Yes (6) Dementia Is this a current diagnosis for this admission?: Yes (7) Gout Is this a current diagnosis for this admission?: Yes (8) Hyperlipidemia Is this a current diagnosis for this admission?: Yes (9) Hypertension Is this a current diagnosis for this admission?: Yes (10) Iron deficiency anemia Is this a current diagnosis for this admission?: Yes (11) Lactic acidemia Is this a current diagnosis for this admission?: Yes (12) Major depression Is this a current diagnosis for this admission?: Yes (13) Metabolic encephalopathy Is this a current diagnosis for this admission?: Yes (14) Sepsis Is this a current diagnosis for this admission?: Yes (15) Thrombocytopenia Is this a current diagnosis for this admission?: Yes (16) Stage II pressure sore Is this a current diagnosis for this admission?: Yes - Additional Information Resuscitation Status: Do Not Resuscitate Discharge Diet: Cardiac, Diabetic Discharge Activity: Activity As Tolerated, Balance Activity w/Rest, Slowly Increase Activity, Supervised Activity Prescriptions: Ferrous Sulfate [Feosol 325 mg Tablet] 325 mg PO BIDPCBS #60 tablet Potassium Chloride [Klor-Con 10 Meq Tablet ER] 20 meq PO DAILY #60 tablet.er Furosemide [Lasix 20 mg Tablet] 20 mg PO DAILY #30 tablet Silver Sulfadiazine [Silvadene 1% Cream 25 gm] 1 applic TP QPM #1 tube Bupropion HCl [Wellbutrin 75 mg Tablet] 75 mg PO Q12 #60 tablet Home Medications: Allopurinol [Zyloprim 100 mg Tablet] 100 mg PO DAILY 01/14/20 Donepezil HCl [Aricept 5 mg Tablet] 5 mg PO QHS 01/14/20 Fluticasone Propionate [Flonase Nasal [place] 50 Mcg/[place] 16 gm] 1 spray NASL DAILYP PRN 01/14/20 Memantine HCl [Namenda 10 mg Tablet] 10 mg PO BID 01/14/20 Metoprolol Tartrate [Lopressor 50 mg Tablet] 50 mg PO Q12 01/14/20 Pantoprazole Sodium [Protonix [address] Tablet] 40 mg PO BID 01/14/20 Rosuvastatin Calcium [Crestor] 20 mg PO DAILY 01/14/20 Sodium Bicarbonate [Sodium Bicarbonate 650 mg Tablet] 1,300 mg PO BID 01/14/20 Acetaminophen [Tylenol 325 mg Tablet] 650 mg PO Q6HP PRN tablet 01/22/20 Bupropion HCl [Wellbutrin 75 mg Tablet] 75 mg PO Q12 #60 tablet 01/22/20 Docusate Sodium [Colace 100 mg Capsule] 100 mg PO BIDP PRN capsule 01/22/20 Ferrous Sulfate [Feosol 325 mg Tablet] 325 mg PO BIDPCBS #60 tablet 01/22/20 Furosemide [Lasix 20 mg Tablet] 20 mg PO DAILY #30 tablet 01/22/20 Guaifenesin [Robitussin Syrup 200 mg/10 ml Ud Cup] 200 mg PO Q6HWA udc 01/22/20 Potassium Chloride [Klor-Con 10 Meq Tablet ER] 20 meq PO DAILY #60 tablet.er 01/22/20 Silver Sulfadiazine [Silvadene 1% Cream 25 gm] 1 applic TP QPM #1 tube 01/22/20 History of Present Illiness History of Present Illness: Per H&P by Dr. Keith: ANGIE WALKER is a 79 year old female who was noted to have a cough several days ago. She was coughing up very little bits of clear mucus. She denied any fever or shaking chills prior to presenting to the emergency department but she did have a fever of 101.2 during her evaluation. Today she was extremely weak and with this change the family felt it appropriate to bring her to the emergency department. She did have a minimally elevated white blood count. Chest x-ray showed what they believed to be chronic interstitial lung disease. More importantly she showed marked kidney injury with severe dehydration. She does have underlying dementia and this critical illness is having a significant negative impact on her. She is miserable. She makes little eye contact. She clearly appears ill. With the current clinical condition as well as acute kidney injury and lactic acidemia the patient was referred to the hospitalist service for admission. Hospital Course Hospital Course: (1) Urinary tract infection Urine culture revealed gram-positive pansensitive E. coli. Completed full course of antibiotic therapy. Received Azactam and vancomycin x2 days. She was transitioned to Rocephin x 5 days following culture results. (2) Acute kidney injury superimposed on chronic kidney disease Resolved. Cr 5.11-> 1.66-> 1.46; baseline 1.32 Secondary to UTI/Sepsis. Recommend encouraging p.o. fluids. Recommend follow-up chemistry in 3 to 5 days to assess renal function. Patient was supported with IV fluids, Gannon catheter for strict I's and O's, optimization of cardiac output, and avoidance of nephrotoxic medications. (3) Obesity (BMI 30-39.9) BMI 35.2 Lifestyle modification dietary discretion advised. Consistent carb/cardiac diet. (4) Asthma Acute exacerbation is significantly improved. Decreased oxygen requirement; does continue to require 1 to 2 L/min to maintain saturations in the low to mid 90s. She is not usually home O2 dependent. Would recommend continuing as needed nebulizer treatments and aggressive pulmonary toilet with incentive spirometer and increased mobility. (5) Dehydration Resolved. Continue to encourage p.o. fluids. (6) Dementia Continue home dose Aricept and Namenda. (7) Gout No flare noted this admission. Continue home dose allopurinol. (8) Hyperlipidemia Cardiac diet Home dose statin (9) Hypertension Acceptable blood pressures on home dose metoprolol and furosemide. Cardiac diet (10) Iron deficiency anemia Iron deficiency anemia. Hemoglobin is stable at 8.7. Continue supplemental ferrous sulfate. (11) Lactic acidemia Resolved. Secondary to sepsis from UTI. (12) Major depression Continue Aricept/Namenda Will stop Depakote r/t depressive sx/fatigue/lethargy. Have started on Wellbutrin. (13) Metabolic encephalopathy Resolved. Secondary to sepsis. Per patient and private duty nurse, patient has returned to her baseline mentation. (14) Sepsis Resolved. Secondary to UTI (15) Thrombocytopenia Improved. Secondary to acute illness; platelets continue to trend up. (16) Stage II pressure sore Silvadene ointment daily. Wound care per nursing protocols. Every 2 turns. Physical Exam Vital Signs: Temp Pulse Resp BP Pulse Ox 98.4 F 55 L 18 121/39 L 100 02/27/20 07:59 01/22/20 07:59 01/22/20 07:59 01/22/20 07:59 01/22/20 07:59 Intake & Output 01/21/20 01/22/20 01/23/20 06:59 06:59 06:59 Intake Total 935 1400 Output Total 3375 Balance -2440 1400 Weight 90.4 kg 90.1 kg General appearance: PRESENT: no acute distress, cooperative, hard of hearing, morbidly obese, well-developed, well-nourished Head exam: PRESENT: atraumatic, normocephalic Eye exam: PRESENT: conjunctiva pink, EOMI, PERRLA. ABSENT: scleral icterus Ear exam: PRESENT: normal external ear exam Mouth exam: PRESENT: moist, tongue midline Teeth exam: PRESENT: poor dentation Neck exam: ABSENT: carotid bruit, full ROM, JVD, lymphadenopathy, meningismus, tenderness, thyromegaly, tracheal deviation, tracheostomy, other Respiratory exam: PRESENT: rhonchi - Improved, symmetrical, unlabored, other - Supplemental oxygen via nasal cannula. ABSENT: rales, wheezes Cardiovascular exam: PRESENT: RRR, +S1, +S2. ABSENT: diastolic murmur, rubs, systolic murmur Pulses: PRESENT: normal dorsalis pedis pul Vascular exam: PRESENT: normal capillary refill GI/Abdominal exam: PRESENT: normal bowel sounds, soft. ABSENT: distended, guarding, mass, organolmegaly, rebound, tenderness Rectal exam: PRESENT: deferred Extremities exam: PRESENT: full ROM. ABSENT: calf tenderness, clubbing, pedal edema Neurological exam: PRESENT: alert, awake, oriented to person, oriented to place, oriented to situation, CN II-XII grossly intact, other - At baseline mentation; intermittently forgetful. ABSENT: motor sensory deficit Psychiatric exam: PRESENT: depressed, flat affect. ABSENT: homicidal ideation, suicidal ideation Skin exam: PRESENT: dry, warm, other - 2 cm x 8 cm stage II pressure wound to left buttocks/hip with serous drainage. ABSENT: cyanosis, intact, rash Results Laboratory Results: WBC 5.4 10^3/uL (4.0-10.5) 01/21/20 04:26 RBC 3.03 10^6/uL (3.72-5.28) L 01/21/20 04:26 Hgb 8.6 g/dL (12.0-15.5) L 01/21/20 04:26 Hct 25.6 % (36.0-47.0) L 01/21/20 04:26 MCV 84 fl (80-97) 01/21/20 04:26 MCH 28.3 pg (27.0-33.4) 01/21/20 04:26 MCHC 33.6 g/dL (32.0-36.0) 01/21/20 04:26 RDW 25.6 % (11.5-14.0) H 01/21/20 04:26 Plt Count 100 10^3/uL (150-450) L 01/21/20 04:26 Lymph % (Auto) 26.6 % (13-45) 01/20/20 05:13 [place] % (Auto) 11.7 % (3-13) 01/20/20 05:13 Eos % (Auto) 8.0 % (0-6) H 01/20/20 05:13 Baso % (Auto) 1.2 % (0-2) 01/20/20 05:13 Reticulocyte # 0.067 10^6/uL (0.028-0.122) 01/15/20 07:52 Absolute Neuts (auto) 2.6 10^3/uL (1.7-8.2) 01/20/20 05:13 Absolute Lymphs (auto) 1.3 10^3/uL (0.5-4.7) 01/20/20 05:13 Absolute Monos (auto) 0.6 10^3/uL (0.1-1.4) 01/20/20 05:13 Absolute Eos (auto) 0.4 10^3/uL (0.0-0.6) 01/20/20 05:13 Absolute Basos (auto) 0.1 10^3/uL (0.0-0.2) 01/20/20 05:13 Seg Neutrophils % 52.5 % (42-78) 01/20/20 05:13 Toxic Granulation SLIGHT 01/16/20 09:50 Toxic Vacuolation PRESENT 01/16/20 09:50 Platelet Estimate Cancelled 01/15/20 05:09 Platelet Comment DECREASED 01/20/20 05:13 Polychromasia SLIGHT 01/20/20 05:13 Hypochromasia SLIGHT 01/15/20 07:52 Poikilocytosis 1+ 01/20/20 05:13 Basophilic Stippling PRESENT 01/20/20 05:13 Anisocytosis 3+ 01/20/20 05:13 Target Cells SLIGHT 01/15/20 07:52 Tear Drop Cells SLIGHT 01/20/20 05:13 Ovalocytes SLIGHT 01/20/20 05:13 Retic Count (auto) 2.64 % (0.66-2.85) 01/15/20 07:52 PT 15.9 SEC (11.4-15.4) H 01/14/20 11:10 INR 1.26 01/14/20 11:10 VBG pH 7.30 (7.30-7.42) 01/14/20 12:57 VBG pCO2 36.1 mmHg (35-63) 01/14/20 12:57 VBG HCO3 17.4 mmol/L (20-32) L 01/14/20 12:57 VBG Base Excess -8.3 mmol/L 01/14/20 12:57 Sodium 139.3 mmol/L (137-145) 01/21/20 04:26 Potassium 4.1 mmol/L (3.6-5.0) 01/21/20 04:26 Chloride 112 mmol/L (98-107) H 01/21/20 04:26 Carbon Dioxide 22 mmol/L (22-30) 01/21/20 04:26 Anion Gap 5 (5-19) 01/21/20 04:26 BUN 18 mg/dL (7-20) 01/21/20 04:26 Creatinine 1.46 mg/dL (0.52-1.25) H 01/21/20 04:26 Est GFR ( Amer) 42 (>60) L 01/21/20 04:26 Est GFR (MDRD) Non-Af 35 (>60) L 01/21/20 04:26 Glucose 90 mg/dL (75-110) 01/21/20 04:26 POC Glucose 209 mg/dL (70-110) H 01/14/20 19:01 Lactic Acid 1.8 mmol/L (0.7-2.1) 01/15/20 05:09 Calcium 8.5 mg/dL (8.4-10.2) 01/21/20 04:26 Phosphorus 3.0 mg/dL (2.5-4.5) 01/20/20 05:13 Magnesium 1.8 mg/dL (1.6-2.3) 01/20/20 05:13 Iron 16.4 ug/dL (37-170) L 01/15/20 05:09 TIBC 285 ug/dL (250-450) 01/15/20 05:09 % Saturation 6 % 01/15/20 05:09 Ferritin 37.50 ng/mL (11.1-264.0) 01/15/20 05:09 Total Bilirubin 0.5 mg/dL (0.2-1.3) 01/14/20 11:10 Direct Bilirubin 0.0 mg/dL (0.0-0.4) 01/14/20 11:10 Neonat Total Bilirubin Not Reportable 01/14/20 11:10 Neonat Direct Bilirubin Not Reportable 01/14/20 11:10 Neonat Indirect Bili Not Reportable 01/14/20 11:10 AST 57 U/L (14-36) H 01/14/20 11:10 ALT 29 U/L (<35) 01/14/20 11:10 Alkaline Phosphatase 147 U/L (38-126) H 01/14/20 11:10 Troponin I 0.014 ng/mL 01/14/20 11:10 Total Protein 6.4 g/dL (6.3-8.2) 01/14/20 11:10 Albumin 2.4 g/dL (3.5-5.0) L 01/20/20 05:13 Vitamin B12 263.0 pg/mL (239-931) 01/15/20 05:09 Folate 9.33 ng/mL (>2.76) 01/15/20 05:09 Urine Color DAVIE 01/14/20 13:23 Urine Appearance CLOUDY 01/14/20 13:23 Urine pH 6.0 (5.0-9.0) 01/14/20 13:23 Ur Specific [place] 1.017 01/14/20 13:23 Urine Protein 100 mg/dL (NEGATIVE) H 01/14/20 13:23 Urine Glucose (UA) NEGATIVE mg/dL (NEGATIVE) 01/14/20 13:23 Urine Ketones NEGATIVE mg/dL (NEGATIVE) 01/14/20 13:23 Urine Blood LARGE (NEGATIVE) H 01/14/20 13:23 Urine Nitrite (Reflex) NEGATIVE (NEGATIVE) 01/14/20 13:23 Urine Bilirubin NEGATIVE (NEGATIVE) 01/14/20 13:23 Urine Urobilinogen NEGATIVE mg/dL (<2.0) 01/14/20 13:23 Leukocyte Esterase Rfl LARGE (NEGATIVE) H 01/14/20 13:23 Urine RBC (Auto) 3 /HPF 01/14/20 13:23 Urine Bacteria (Auto) 3+ /HPF 01/14/20 13:23 Urine WBC (Reflex) > 182 /HPF 01/14/20 13:23 Urine WBC Clumps FEW /HPF 01/14/20 13:23 Squamous Epi Cells Auto 1 /HPF 01/14/20 13:23 Amorphous Sediment Auto TRACE /HPF 01/14/20 13:23 Urine Mucus (Auto) RARE /LPF 01/14/20 13:23 Urine Ascorbic Acid 40 (NEGATIVE) H 01/14/20 13:23 Stool Occult Blood POSITIVE (NEGATIVE) 01/19/20 13:42 Slides for Path Review Cancelled 01/15/20 05:09 Blood Type O POSITIVE 01/15/20 10:25 Blood Type Confirm O POSITIVE 01/15/20 11:35 Antibody Screen NEGATIVE 01/15/20 10:25 Crossmatch See Detail 01/15/20 10:25 01/14/20 11:10 Troponin I 0.014 Impressions: Chest X-Ray 01/14/20 10:57 IMPRESSION: Stable chest. No acute findings. Suspect chronic interstitial lung disease. Chest X-Ray 01/16/20 00:00 IMPRESSION: Increased left basilar airspace disease- pleural effusion. Chest X-Ray 01/19/20 00:00 IMPRESSION: Similar patchy left basilar airspace opacities and interstitial thickening bilaterally. No significant Pleural effusion. Plan Plan of Treatment: Discharge to SNF for continued rehab. Follow-up with primary care provider within 1 week of discharge from rehab. Recommend repeat chemistry in 3 to 5 days to assess renal function. Return to the emergency department as needed for concerning symptoms. Time Spent: Greater than 30 Minutes Stroke Is this a Stroke Patient?: No Acute Heart Failure - Is this a Heart Failure Patient?: No
[2020-01-22] MEDS: SILVER SULFADIAZINE 1% CREAM 25 GM TP SCH (17:17)
[2020-01-22] MEDS: ATORVASTATIN CALCIUM 40 MG TABLET PO SCH (21:20)
[2020-01-22] MEDS: DONEPEZIL HCL 5 MG TABLET PO SCH (21:20)
[2020-01-23 05:11] LABS: HEMOGLOBIN 9.1 g/dL (12.0-15.5); MEAN CORPUSCULAR HEMOGLOBIN 28.6 pg (27.0-33.4); MEAN CORPUSCULAR HGB CONC 33.5 g/dL (32.0-36.0); MEAN CORPUSCULAR VOLUME 85 fl (80-97); PLATELET COUNT 112 10^3/uL (150-450); RED BLOOD COUNT 3.17 10^6/uL (3.72-5.28); RED CELL DISTRIBUTION WIDTH 26.5 % (11.5-14.0); WHITE BLOOD COUNT 5.9 10^3/uL (4.0-10.5)
[2020-01-23 05:38] LABS: ANION GAP 7 (5-19); BLOOD UREA NITROGEN 13 mg/dL (7-20); CARBON DIOXIDE 25 mmol/L (22-30); CHLORIDE 109 mmol/L (98-107); GLUCOSE 98 mg/dL (75-110); POTASSIUM 3.5 mmol/L (3.6-5.0)
[2020-01-23] MEDS: GUAIFENESIN SYRP 200 MG/10 ML UDC PO SCH ×2 (06:21→13:06)
[2020-01-23] MEDS: HEPARIN SOD (PORCINE) 5,000 UNIT/ML 1 ML VIAL SUBCUT SCH (06:21)
[2020-01-23] MEDS: BUPROPION HCL 75 MG TABLET PO SCH (09:17)
[2020-01-23] MEDS: SODIUM BICARBONATE 650 MG TABLET PO SCH (09:17)
[2020-01-23] MEDS: POTASSIUM CHLORIDE 10 MEQ TABLET.ER PO SCH (09:17)
[2020-01-23] MEDS: FUROSEMIDE 20 MG TABLET PO SCH (09:17)
[2020-01-23] MEDS: MEMANTINE HCL 10 MG TABLET PO SCH (09:17)
[2020-01-23] MEDS: METOPROLOL TARTRATE 25 MG TABLET PO SCH (09:17)
[2020-01-23] MEDS: ALLOPURINOL 100 MG TABLET PO SCH (09:17)
[2020-01-23] MEDS: PANTOPRAZOLE SODIUM 40 MG TABLET.DR PO SCH (09:17)
[2020-01-23] MEDS: FERROUS SULFATE 325 MG TABLET PO SCH (09:17)
[2020-01-23] MEDS: FLUTICASONE NASAL SPRAY 50 MCG/SPRY 120 SPRAY/16 GM NASL SCH (09:20)
[2020-01-23 11:22] VITALS: BP 130/49
== END 2020-01-23 16:32 | DRG 871 ==
LOC: ER 10:51 → EH 14:18 → 3W 17:21 → 5TH 01-23 14:38
PROVIDERS: ADMIT Hospitalist; ATTEND Hospitalist
DX: A41.9 Sepsis, unspecified organism (principal); J18.9 Pneumonia, unspecified organism; G93.41 Metabolic encephalopathy; N17.0 Acute kidney failure with tubular necrosis; N30.01 Acute cystitis with hematuria; J45.21 Mild intermittent asthma with (acute) exacerbation; F33.1 Major depressive disorder, recurrent, moderate; F13.20 Sedative, hypnotic or anxiolytic dependence, uncomplicated; N18.9 Chronic kidney disease, unspecified; E86.0 Dehydration; Z66 Do not resuscitate; E78.5 Hyperlipidemia, unspecified; I12.9 Hypertensive chronic kidney disease with stage 1 through stage 4 chronic kidney disease, or unspecified chronic kidney disease; B96.20 Unspecified Escherichia coli [E. coli] as the cause of diseases classified elsewhere; D69.59 Other secondary thrombocytopenia; E66.01 Morbid (severe) obesity due to excess calories; E11.22 Type 2 diabetes mellitus with diabetic chronic kidney disease; D63.1 Anemia in chronic kidney disease; R65.20 Severe sepsis without septic shock; N18.3 Chronic kidney disease, stage 3 (moderate); K21.9 Gastro-esophageal reflux disease without esophagitis; E11.65 Type 2 diabetes mellitus with hyperglycemia; G30.9 Alzheimer's disease, unspecified; D50.9 Iron deficiency anemia, unspecified; F02.80 Dementia in other diseases classified elsewhere, unspecified severity, without behavioral disturbance, psychotic disturbance, mood disturbance, and anxiety; E78.00 Pure hypercholesterolemia, unspecified; M1A.9XX0 Chronic gout, unspecified, without tophus (tophi); L89.322 Pressure ulcer of left buttock, stage 2; I25.2 Old myocardial infarction; Z68.35 Body mass index [BMI] 35.0-35.9, adult; Z28.9 Immunization not carried out for unspecified reason; Z79.899 Other long term (current) drug therapy; Z87.891 Personal history of nicotine dependence; Z88.6 Allergy status to analgesic agent; Z88.3 Allergy status to other anti-infective agents; Z88.0 Allergy status to penicillin; Z88.2 Allergy status to sulfonamides; Z88.7 Allergy status to serum and vaccine
CPT/HCPCS: 36415; 36430; 71045; 80048; 80053; 80069; 81001; 82272; 82607; 82728; 82746; 82803; 82962; 83540; 83550; 83605; 83735; 84484; 85025; 85027; 85045; 85610; 86850; 86900; 86901; 86920; 87040; 87077; 87086; 87088; 87186; 93005; 93010; 99285; J0696; J1644; J1940; J3370; J3420; J3490; J7030; J7060; P9016

== ENCOUNTER → 2020-04-07 | Outpatient (CLI) | payer BC, MEDICARE ==
[2020-04-07 16:39] LABS: ABSOLUTE BASOPHILS # (AUTO) 0.1 10^3/uL (0.0-0.2); ABSOLUTE EOSINOPHILS # (AUTO) 0.5 10^3/uL (0.0-0.6); ABSOLUTE LYMPHOCYTES (AUTO) 1.2 10^3/uL (0.5-4.7); ABSOLUTE MONOCYTES (AUTO) 0.8 10^3/uL (0.1-1.4); ABSOLUTE NEUT (AUTO) 5.2 10^3/uL (1.7-8.2); EOSINOPHILS % (AUTO) 6.3 % (0-6); HEMATOCRIT 37.2 % (36.0-47.0); HEMOGLOBIN 12.2 g/dL (12.0-15.5); LYMPHOCYTES % (AUTO) 14.9 % (13-45); MEAN CORPUSCULAR HEMOGLOBIN 30.9 pg (27.0-33.4); MEAN CORPUSCULAR HGB CONC 32.9 g/dL (32.0-36.0); MEAN CORPUSCULAR VOLUME 94 fl (80-97); MONOCYTES % (AUTO) 10.3 % (3-13); PLATELET COUNT 177 10^3/uL (150-450); RED BLOOD COUNT 3.95 10^6/uL (3.72-5.28); RED CELL DISTRIBUTION WIDTH 15.6 % (11.5-14.0); SEGMENTED NEUTROPHILS % (AUTO) 67.5 % (42-78); TOTAL CELLS COUNTED % (AUTO) 100 %; WHITE BLOOD COUNT 7.8 10^3/uL (4.0-10.5)
[2020-04-07 17:03] LABS: ALBUMIN 3.2 g/dL (3.5-5.0); ALKALINE PHOSPHATASE 140 U/L (38-126); ANION GAP 6 (5-19); ASPARTATE AMINO TRANSFERASE 33 U/L (14-36); BILIRUBIN,TOTAL 0.8 mg/dL (0.2-1.3); BLOOD UREA NITROGEN 11 mg/dL (7-20); C-REACTIVE PROTEIN 18.1 mg/L (<10.0); CALCIUM 8.9 mg/dL (8.4-10.2); CARBON DIOXIDE 27 mmol/L (22-30); CHLORIDE 109 mmol/L (98-107); GLUCOSE 121 mg/dL (75-110); POTASSIUM 3.3 mmol/L (3.6-5.0); TOTAL PROTEIN 6.5 g/dL (6.3-8.2)
--- NOTE | 2020-04-07 17:03 | RADIOLOGY REPORT (SQ) ---
EXAM DESCRIPTION: PELVIS AP IMAGES COMPLETED DATE/TIME: 04/07/2020 4:51 pm REASON FOR STUDY: PRESSURE ULCER OF LEFT BUTTOCK, STAGE 3 L89.323 PRESSURE ULCER OF LEFT BUTTOCK, S TAGE 3 COMPARISON: None. NUMBER OF VIEWS: One view TECHNIQUE: AP Pelvis LIMITATIONS: None. FINDINGS: MINERALIZATION: Normal. HIPS: No acute fracture or dislocation. No worrisome bone lesions. PELVIS AND SACRUM: No acute fracture or dislocation. No worrisome bone lesions. PUBIS AND ISCHIUM: There is no evidence of osteomyelitis. LOWER LUMBAR SPINE: No significant findings as visualized. SOFT TISSUES: No findings. OTHER: No other significant finding. IMPRESSION: NEGATIVE STUDY OF THE PELVIS. COMMENT: Pelvic fractures are often occult on plain radiographs. If strong clinical suspicion for f racture, recommend CT or MR. TECHNICAL DOCUMENTATION: JOB ID: [id number] 2010 [employer]- All Rights Reserved Reading location - IP/workstation name: [email or web address]
[2020-04-07 17:18] LABS: ERYTHROCYTE SEDIMENTATION RATE 41 mm/hr (0-30)
== END ==
LOC: WC 15:38
PROVIDERS: ATTEND Nurse Practitioner Family
DX: L89.323 Pressure ulcer of left buttock, stage 3 (principal)
CPT/HCPCS: 36415; 72170; 80053; 83036; 85025; 85652; 86140

== ENCOUNTER 2020-04-29 12:25 | Emergency (ER) | payer BC, MEDICARE ==
--- NOTE | 2020-04-29 15:40 | ER Document Report ---
ED General - General Chief Complaint: Cough Stated Complaint: SHORTNESS OF BREATH,COUGH Time Seen by Provider: 04/29/20 15:25 Primary Care Provider: KAMERON SILVEIRA SOLAR PHOTOVOLTAIC INSTALLER, SOLAR PHOTOVOLTAIC INSTALLER [Primary Care Provider] - Follow up as needed Notes: CHIEF COMPLAINT: Multiple complaints HPI: History is obtained from the patient and her caregiver. 80-year-old female with history of hypertension, high cholesterol, diabetes managed by diet, pneu monia and sepsis in December 2019 brought to the emergency department for abdominal distention over the last 3 to 4 days, no bowel movement over the last 3 to 4 days. Caregiver reports decreased urination. Patient reports worsened cough over the last 2 weeks similar to when she presented with pneumonia in December. Patient has not had a fever at home. Patient does report some shortness of breath ROS: See HPI - all other systems were reviewed and are otherwise negative Constitutional: no fever Eyes: no drainage, no blurred vision ENT: no runny nose, no sore throat Cardiovascular: no chest pain Resp: Positive SOB, positive cough GI: no vomiting, no diarrhea, positive abdominal pain, positive constipation : no dysuria, decreased urination Integumentary: no rash Allergy: no hives Musculoskeletal: no extremity pain or swelling Neurological: no numbness/tingling, no weakness MEDICATIONS: I agree with the patient medications as charted by the RN. ALLERGIES: I agree with the allergies as charted by the RN. PAST MEDICAL HISTORY/PAST SURGICAL HISTORY: Reviewed and agree as charted by RN. SOCIAL HISTORY: Reviewed and agree as charted by RN. FAMILY HISTORY: No significant familial comorbid conditions directly related to patient complaint EXAM: Reviewed vital signs as charted by RN. CONSTITUTIONAL: Alert and oriented and responds appropriately to questions. Chronically ill-appearing; well-nourished HEAD: Normocephalic; atraumatic EYES: PERRL; Conjunctivae clear, sclerae non-icteric ENT: normal nose; no rhinorrhea; moist mucous membranes; pharynx without lesions noted, no uvula edema or deviation, no tonsillar hypertrophy, phonation normal NECK: Supple without meningismus; non-tender; no cervical lymphadenopathy, no masses CARD: RRR; no murmurs, no clicks, no rubs, no gallops; symmetric distal pulses RESP: Normal chest excursion without splinting or tachypnea; breath sounds noted to have wheezing bilateral anterior and posterior, no rhonchi, no rales, pulse oximetry 95% on room air not hypoxic ABD/GI: Normal bowel sounds; distended generally, soft, mild generalized tenderness, no rebound, no guarding; no palpable organomegaly or masses. BACK: The back appears normal and is non-tender to palpation, there is no CVA tenderness EXT: Normal ROM in all joints; non-tender to palpation; no cyanosis, no effusions, no edema SKIN: Normal color for age and race; warm; dry; good turgor; wound VAC on the left hip is noted without surrounding erythema NEURO: Moves all extremities equally; Motor and sensory function intact PSYCH: The patient's mood and manner are appropriate. Grooming and personal hygiene are appropriate. MDM: 80-year-old female presenting for multiple complaints. Worsened cough over the last 2 weeks similar to when patient had pneumonia in December. Patient's abdomen appears distended, caregiver reports decreased urination and const ipation over the last 3 to [address] imaging to evaluate for an obstructive process. Differential is large. Initial screening labs obtained via triage process. Will add BNP TRAVEL OUTSIDE OF THE [place] IN LAST 30 DAYS: No - Related Data Allergies/Adverse Reactions: ciprofloxacin [From Cipro] Allergy (Verified 04/29/20 14:14) codeine [Codeine] Allergy (Verified 04/29/20 14:14) erythromycin base [Erythromycin Base] Allergy (Verified 04/29/20 14:14) Influenza Virus Vaccines Allergy (Verified 04/29/20 14:14) Penicillins Allergy (Verified 04/29/20 14:14) sulfamethoxazole [Sulfamethoxazole] Allergy (Verified 04/29/20 14:14) Tetanus Vaccines and Toxoid [Tetanus] Allergy (Verified 04/29/20 14:14) trimethoprim [From Bactrim DS] Allergy (Verified 04/29/20 14:14) GAS PAIN Home Medications: dementia, alzheimer, htn, high cholestrol, diabetes Past Medical History - Social History Smoking Status: Never Smoker Chew tobacco use (# tins/day): No Frequency of alcohol use: None Drug Abuse: None Family History: Reviewed & Not Pertinent, Hypertension, Other - Congestive heart failure Patient has homicidal ideation: No - Past Medical History Cardiac Medical History: Reports: Hx Heart Attack - mild, Hx Hypercholesterolemia, Hx Hypertension Denies: Hx Coronary Artery Disease Pulmonary Medical History: Reports: Hx Asthma, Hx Bronchitis, Hx Pneumonia - sepsis Denies: Hx COPD Neurological Medical History: Denies: Hx Cerebrovascular Accident, Hx Seizures Endocrine Medical History: Reports: Hx Diabetes Mellitus Type 2 Renal/ Medical History: Denies: Hx Peritoneal Dialysis GI Medical History: Reports: Hx Gastroesophageal Reflux Disease Musculoskeletal Medical History: Reports Hx Arthritis, Reports Hx Gout Psychiatric Medical History: Reports: Hx Anxiety - Benzodiazepine dependency, continuous, Hx Dementia, Hx Depression Infectious Medical History: Past Surgical History: Reports: Hx Appendectomy, Hx Cholecystectomy, Hx Hysterectomy - Immunizations Hx Diphtheria, Pertussis, Tetanus Vaccination: No Physical Exam - Vital signs Vitals: Temp Pulse Resp BP Pulse Ox 98.3 F 69 20 150/44 H 95 04/29/20 13:53 04/29/20 13:53 04/29/20 13:53 04/29/20 13:53 04/29/20 13:53 Course - Re-evaluation Re-evalutation: 04/29/20 18:17 Patient shows a BNP greater than 6000, potassium of 2.8. Will give potassium replacement. 04/29/20 19:[address] Alexander. Patient shows moderate ascites likely from cirrhosis of the liver, this is why the BNP is likely significantly elevated. I have given patient potassium replacement which she is not on normally though she uses Lasix. Her chest x-ray did not show evidence of pneumonia her lactic acid was normal. Anticipate discharge home to continue on Lasix, potassium replacement. She indicates that she has a aircraft refueler for follow-up. She will also be instructed to follow-up with her PCP. - Vital Signs Vital signs: Temp Pulse Resp BP Pulse Ox 98.3 F 69 20 150/44 H 95 04/29/20 14:19 04/29/20 13:53 04/29/20 13:53 04/29/20 13:53 04/29/20 13:53 - Laboratory Result Diagrams: 04/29/20 16:47 04/29/20 16:47 Laboratory results interpreted by me: 04/29/20 04/29/20 04/29/20 16:20 16:47 16:47 RDW 15.3 H Eos % (Auto) 6.1 H Potassium 2.8 L* Est GFR ( Amer) 52 L Est GFR (MDRD) Non-Af 43 L Alkaline Phosphatase 145 H NT-Pro-B Natriuret Pep Albumin 3.2 L Urine Ketones TRACE H Urine Ascorbic Acid 40 H 04/29/20 16:47 RDW Eos % (Auto) Potassium Est GFR ( Amer) Est GFR (MDRD) Non-Af Alkaline Phosphatase NT-Pro-B Natriuret Pep 6190 H Albumin Urine Ketones Urine Ascorbic Acid Discharge - Discharge Clinical Impression: Hypokalemia, Cough Ascites Qualifiers: Ascites type: other type Qualified Code(s): R18.8 - Other ascites Condition: Stable Disposition: HOME, SELF-CARE Additional Instructions: Take the potassium replacement while you are taking Lasix. It was noted on your imaging studies today that your abdomen is likely swollen from excess fluid in the abdomen. This needs to be followed up with gastroenterology that you may need paracentesis to help remove some of the fluid. As you have indicated that you have a aircraft refueler that you have seen before please follow-up with them in 2 to 3 days for recheck and reevaluation. Follow-up with your primary care provider regarding your low potassium levels. Prescriptions: Potassium Chloride 10 meq PO DAILY #7 tablet.er Referrals: KAMERON SILVEIRA SOLAR PHOTOVOLTAIC INSTALLER, SOLAR PHOTOVOLTAIC INSTALLER [Primary Care Provider] - Follow up as needed
--- NOTE | 2020-04-29 15:44 | RADIOLOGY REPORT (SQ) ---
EXAM DESCRIPTION: CHEST SINGLE VIEW IMAGES COMPLETED DATE/TIME: 04/29/2020 3:27 pm REASON FOR STUDY: bed 31 difficulty breathing COMPARISON: 01/19/2020 EXAM PARAMETERS: NUMBER OF VIEWS: One view. TECHNIQUE: Single frontal radiographic view of the chest acquired. RADIATION DOSE: NA LIMITATIONS: None. FINDINGS: LUNGS AND PLEURA: Chronic interstitial changes. No acute infiltrate, effusion, or mass. MEDIASTINUM AND HILAR STRUCTURES: No masses. Contour normal. HEART AND VASCULAR STRUCTURES: Heart normal in size. Normal vasculature. BONES: No acute findings. HARDWARE: None in the chest. OTHER: No other significant finding. IMPRESSION: Chronic lung changes with no acute cardiopulmonary finding. TECHNICAL DOCUMENTATION: JOB ID: [id number] 2010 [employer]- All Rights Reserved Reading location - IP/workstation name: [email or web address]
[2020-04-29] MEDS ORDERED: IPRATROPIUM/ALBUTEROL 0.5-2.5 MG/3 ML AMPUL NEB ONE (15:57)
[2020-04-29 17:05] LABS: ABSOLUTE BASOPHILS # (AUTO) 0.1 10^3/uL (0.0-0.2); ABSOLUTE EOSINOPHILS # (AUTO) 0.6 10^3/uL (0.0-0.6); ABSOLUTE LYMPHOCYTES (AUTO) 1.5 10^3/uL (0.5-4.7); ABSOLUTE NEUT (AUTO) 6.8 10^3/uL (1.7-8.2); BASOPHILS % (AUTO) 0.9 % (0-2); EOSINOPHILS % (AUTO) 6.1 % (0-6); HEMATOCRIT 37.7 % (36.0-47.0); HEMOGLOBIN 12.7 g/dL (12.0-15.5); MEAN CORPUSCULAR HEMOGLOBIN 30.4 pg (27.0-33.4); MEAN CORPUSCULAR HGB CONC 33.8 g/dL (32.0-36.0); MONOCYTES % (AUTO) 9.7 % (3-13); PLATELET COUNT 160 10^3/uL (150-450); RED BLOOD COUNT 4.18 10^6/uL (3.72-5.28); RED CELL DISTRIBUTION WIDTH 15.3 % (11.5-14.0); SEGMENTED NEUTROPHILS % (AUTO) 68.3 % (42-78); TOTAL CELLS COUNTED % (AUTO) 100 %
[2020-04-29 17:07] LABS: APPEARANCE,URINE CLEAR; BILIRUBIN,URINE NEGATIVE (NEGATIVE); COLOR,URINE YELLOW; GLUCOSE, URINE NEGATIVE (NEGATIVE); KETONES,URINE TRACE mg/dL (NEGATIVE); LEUKOCYTE ESTERASE,URINE NEGATIVE (NEGATIVE); NITRITE,URINE NEGATIVE (NEGATIVE); PROTEIN,URINE NEGATIVE (NEGATIVE); URINE SPECIFIC GRAVITY 1.013; UROBILINOGEN,URINE NEGATIVE mg/dL (<2.0)
[2020-04-29 17:16] LABS: MEAN CORPUSCULAR VOLUME 90 fl (80-97)
[2020-04-29 17:27] LABS: ALBUMIN 3.2 g/dL (3.5-5.0); ALKALINE PHOSPHATASE 145 U/L (38-126); ANION GAP 8 (5-19); ASPARTATE AMINO TRANSFERASE 35 U/L (14-36); BILIRUBIN,DIRECT 0.1 mg/dL (0.0-0.4); BILIRUBIN,TOTAL 0.9 mg/dL (0.2-1.3); BLOOD UREA NITROGEN 10 mg/dL (7-20); CALCIUM 8.9 mg/dL (8.4-10.2); CARBON DIOXIDE 24 mmol/L (22-30); CHLORIDE 107 mmol/L (98-107); CREATINE KINASE 74 U/L (30-135); GLUCOSE 98 mg/dL (75-110); TOTAL PROTEIN 6.6 g/dL (6.3-8.2)
[2020-04-29 17:39] LABS: POTASSIUM 2.8 mmol/L (3.6-5.0)
[2020-04-29 17:43] LABS: CREATINE KINASE MB 1.57 ng/mL (<4.55); TROPONIN I 0.014 ng/mL
[2020-04-29] MEDS ORDERED: POTASSIUM CHLORIDE 20 MEQ PACKET PO ONE (18:16)
[2020-04-29] MEDS ORDERED: POTASSI CL 20 MEQ/50 ML RIDER 20 MEQ/50 ML RTUPB IV ONE (18:17)
[2020-04-29] MEDS ORDERED: FUROSEMIDE INJ/PF 20 MG/2 ML SDV IV ONE (18:52)
--- NOTE | 2020-04-29 19:25 | RADIOLOGY REPORT (SQ) ---
EXAM DESCRIPTION: CT ABD/PELVIS WITH IV ONLY IMAGES COMPLETED DATE/TIME: 04/29/2020 7:12 pm REASON FOR STUDY: abd distension COMPARISON: None. TECHNIQUE: CT scan of the abdomen and pelvis performed using helical scanning technique with dynamic intravenous contrast injection. No oral contrast. Images reviewed with lung, soft tissue, and bone windows. Reconstructed coronal and sagittal MPR images reviewed. Delayed images for evaluation of the urinary system also acquired. All images stored on PACS. All CT scanners at this facility use dose modulation, iterative reconstruction, and/or weight based d osing when appropriate to reduce radiation dose to as low as reasonably achievable (ALARA). [facility]: Dose Right [facility]: CareDose [facility]: Dose Right [facility]: Teradose 4D [facility]: [employer] CONTRAST TYPE AND DOSE: contrast/concentration: Isovue mg/ml; Total Contrast Delivered: 96.0 ml; To lakshmi Saline Delivered: 21.9 ml RENAL FUNCTION: BUN 10 creatinine 1.2 RADIATION DOSE: CT Rad equipment meets quality standard of care and radiation dose reduction techniq ues were employed. CTDIvol: 15.6 - 18.2 mGy. DLP: 1884 mGy-cm.. LIMITATIONS: None. FINDINGS: LOWER CHEST: No significant findings. No nodules or infiltrates. LIVER: Slightly nodular margin. SPLEEN: The spleen is prominent at 12 cm. PANCREAS: No masses. No significant calcifications. No adjacent inflammation or peripancreatic fluid collections. Pancreatic duct not dilated. GALLBLADDER: Surgically absent. ADRENAL GLANDS: No significant masses or asymmetry. RIGHT KIDNEY AND URETER: No solid masses. No significant calcifications. No hydronephrosis or hyd roureter. LEFT KIDNEY AND URETER: No solid masses. No significant calcifications. No hydronephrosis or hydr oureter. AORTA AND VESSELS: No aneurysm. No dissection. Renal arteries, SMA, celiac without stenosis. RETROPERITONEUM: No retroperitoneal adenopathy, hemorrhage or masses. BOWEL AND PERITONEAL CAVITY: There is a large amount of ascites. No obvious bowel mass or inflammati on. APPENDIX: Surgically absent. PELVIS: Free fluid. Urinary bladder is normal. ABDOMINAL WALL: No masses. No hernias. BONES: Scoliosis. OTHER: No other significant finding. IMPRESSION: There is a large amount of ascites. Likely hepatic cirrhosis. Spleen is prominent. No other significant finding. TECHNICAL DOCUMENTATION: JOB ID: [id number] Quality ID # [id number]: Final reports with documentation of one or more dose reduction techniques (e.g., Au tomated exposure control, adjustment of the mA and/or kV according to patient size, use of iterative reconstruction technique) 2010 [employer]- All Rights Reserved Reading location - IP/workstation name: [email or web address]
[2020-04-29] MEDS ORDERED: LORAZEPAM 0.5 MG TABLET PO ONE (21:44)
[2020-04-29 22:05] VITALS: BP 148/77
--- NOTE | 2020-04-30 12:42 | EKG REPORT ---
SEVERITY:- ABNORMAL ECG - SINUS RHYTHM MULTIPLE PREMATURE COMPLEXES SUPRAVEN BORDERLINE T ABNORMALITIES, INFERIOR LEADS : Confirmed by: Oly Johnson 30-Apr-2020 12:41:45
== END 2020-04-29 22:06 | disposition home or self-care (01) ==
LOC: ER 12:25
DX: E87.6 Hypokalemia (principal); R18.8 Other ascites; R05 Cough; R06.02 Shortness of breath; I10 Essential (primary) hypertension; E78.00 Pure hypercholesterolemia, unspecified; E11.9 Type 2 diabetes mellitus without complications; Z88.6 Allergy status to analgesic agent; Z88.3 Allergy status to other anti-infective agents; Z88.0 Allergy status to penicillin; Z90.49 Acquired absence of other specified parts of digestive tract; Z90.710 Acquired absence of both cervix and uterus
CPT/HCPCS: 93005; 94640; 99285; 96375; 96365; 96366; 36415; 82553; 82550; 83605; 84443; 85025; 80053; 81001; 84484; 83880; 71045; 74177; 93010; J1940; J3480; J7620; J3490

== ENCOUNTER 2020-05-10 07:58 | Day surgery (SDC) | payer BC, MEDICARE ==
[2020-05-10 08:43] LABS: HEMATOCRIT 36.2 % (36.0-47.0); HEMOGLOBIN 11.9 g/dL (12.0-15.5); MEAN CORPUSCULAR HEMOGLOBIN 29.4 pg (27.0-33.4); MEAN CORPUSCULAR HGB CONC 32.9 g/dL (32.0-36.0); MEAN CORPUSCULAR VOLUME 89 fl (80-97); PLATELET COUNT 171 10^3/uL (150-450); RED BLOOD COUNT 4.05 10^6/uL (3.72-5.28); RED CELL DISTRIBUTION WIDTH 15.7 % (11.5-14.0); WHITE BLOOD COUNT 9.9 10^3/uL (4.0-10.5)
[2020-05-10 08:49] LABS: PROTHROMBIN TIME 15.3 SEC (11.4-15.4)
[2020-05-10 08:50] LABS: PARTIAL THROMBOPLASTIN TIME 43.8 SEC (23.5-35.8)
[2020-05-10 09:03] LABS: BLOOD UREA NITROGEN 13 mg/dL (7-20)
[2020-05-10] MEDS ORDERED: ALBUMIN HUMAN 62.5 GM/250 ML RTUINJ IV ONE (11:30)
[2020-05-10 12:59] VITALS: BP 161/68
--- NOTE | 2020-05-10 12:59 | RADIOLOGY REPORT (SQ) ---
EXAM DESCRIPTION: U/S ABD PARACENTESIS IMAGES COMPLETED DATE/TIME: 05/10/2020 11:18 am REASON FOR STUDY: ASCITES COMPARISON None. LIMITATIONS: None. PROCEDURE: After obtaining informed consent, the patient was brought to the ultrasound suite. The p rocedure was performed with the patient on a gurney. Ultrasound was used to identify a prominent poc ket of ascites in the left lower quadrant. An appropriate access site was selected. The patient was prepped and draped in usual sterile fashion. The access site was anesthetized with 6 mL 1% lidocai ne. A Jjyd-F-Deiiifeu needle was advanced into the fluid. After aspiration of fluid the needle, the catheter was advanced off the needle into the fluid. A total of 5,550 mL of straw-colored fluid wa s removed. The patient tolerated the procedure well left the department in satisfactory condition. IMPRESSION: Successful ultrasound-guided paracentesis COMMENT: Patient medication list reviewed: Yes- Quality ID# [id number]:Eligible professional attests to doc umenting in the medical record they obtained, updated, or reviewed the patient's current medications. TECHNICAL DOCUMENTATION: JOB ID: [id number] 2010 [employer]- All Rights Reserved Reading location - IP/workstation name: [email or web address]
[2020-05-10 14:44] LABS: FLUID COLOR LIGHT YELLOW; FLUID SOURCE ABDOMEN; FLUID TYPE PERITONEAL; FLUID VISCOSITY LIQUID
[2020-05-11 11:03] LABS: FLUID APPEARANCE CLEAR
[2020-05-11 11:41] LABS: ALBUMIN BODY FLUID 0.8 g/dL (Not Estab.); TOTAL PROTEIN BODY FLUID 1.7 g/dL (.)
== END 2020-05-10 13:10 | disposition home or self-care (01) ==
LOC: RAD 07:58
PROVIDERS: ATTEND Internal Medicine Gastroenterology
DX: R18.8 Other ascites (principal); I13.0 Hypertensive heart and chronic kidney disease with heart failure and stage 1 through stage 4 chronic kidney disease, or unspecified chronic kidney disease; E11.22 Type 2 diabetes mellitus with diabetic chronic kidney disease; N18.3 Chronic kidney disease, stage 3 (moderate); I50.9 Heart failure, unspecified; E78.5 Hyperlipidemia, unspecified; E78.00 Pure hypercholesterolemia, unspecified; Z79.899 Other long term (current) drug therapy; Z88.5 Allergy status to narcotic agent; Z88.2 Allergy status to sulfonamides; Z88.8 Allergy status to other drugs, medicaments and biological substances
CPT/HCPCS: 36415; 87205; 87070; 82962; 84520; 82565; 85027; 85610; 85730; 89050; 87075; 82042; 84157; 88162; 49083; P9047

== ENCOUNTER → 2020-07-13 | Outpatient (CLI) | payer BC ==
--- NOTE | 2020-07-13 12:57 | RADIOLOGY REPORT (SQ) ---
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 TECHNIQUE: CT scan of the pelvis performed without intravenous or oral contrast. Images reviewed wi th soft tissue and bone windows. Reconstructed coronal and sagittal MPR images reviewed. All images stored on PACS. All CT scanners at this facility use dose modulation, iterative reconstruction, and/or weight based d osing when appropriate to reduce radiation dose to as low as reasonably achievable (ALARA). [facility]: Dose Right [facility]: CareDose [facility]: Dose Right [facility]: Teradose 4D [facility]: [employer] LIMITATIONS: None. FINDINGS: PELVIC BONES: See below. VISUALIZED SPINE: The L4-L5 and L5-S1 intervertebral disc spaces are narrowed and the facet joints ar e hypertrophied. HIP(S): No fracture or dislocation. PELVIC SOFT TISSUES: The amount of free intraperitoneal fluid has decreased after the paracentesis on 05/10/2020. There are no dilated loops of bowel. The uterus is surgically absent. The urinary blad florence is contracted. EXTRAPELVIC SOFT TISSUES: In the right gluteal region there is an area of inflammatory fat stranding that extends from the cutaneous surface to the ischial tuberosity ; the cortex of the ischial tuberos ity is irregular. There is no drainable abscess in the area. OTHER: No other finding. IMPRESSION: Area of inflammatory fat stranding that extends from the cutaneous surface to the ischia l tuberosity ; the cortex of the ischial tuberosity is irregular. Consider correlation with a bone s can or MRI to exclude an osteomyelitis. TECHNICAL DOCUMENTATION: JOB ID: [id number] Quality ID # [id number]: Final reports with documentation of one or more dose reduction techniques (e.g., Au tomated exposure control, adjustment of the mA and/or kV according to patient size, use of iterative reconstruction technique) 2010 [employer]- All Rights Reserved Reading location - IP/workstation name: [email or web address]
== END ==
LOC: RAD 08:54
PROVIDERS: ATTEND Nurse Practitioner Family
DX: L89.323 Pressure ulcer of left buttock, stage 3 (principal)
CPT/HCPCS: 72193

== ENCOUNTER → 2020-07-19 | Outpatient (CLI) | payer BC, MEDICARE ==
--- NOTE | 2020-07-19 14:43 | RADIOLOGY REPORT (SQ) ---
EXAM DESCRIPTION: MRI PELVIS COMBO IMAGES COMPLETED DATE/TIME: 07/19/2020 1:02 pm REASON FOR STUDY: L89.323 PRESSURE ULCER OF LEFT BUTTOCK, STAGE 3 L89.323 PRESSURE ULCER OF LEFT BU TTOCK, STAGE 3 COMPARISON: None. TECHNIQUE: Multiplanar imaging of the pelvis to include T1-weighted, postcontrast T1-weighted, and T 2-weighted images. CONTRAST TYPE AND DOSE: 10 mL Prohance. RENAL FUNCTION: Not indicated. ACR Type II contrast agent associated with few, if any, unconfounded cases of NSF LIMITATIONS: None. FINDINGS: BONE MARROW: No marrow signal alteration. Specifically no marrow replacement or marrow ed kerline. No evidence for osteomyelitis. No cortical break through. SOFT TISSUES: Skin ulcer left buttock. No organized fluid collection. Pelvic ascites. OTHER: No other significant finding. IMPRESSION: NO EVIDENCE FOR OSTEOMYELITIS. TECHNICAL DOCUMENTATION: JOB ID: [id number] 2010 [employer]- All Rights Reserved Reading location - IP/workstation name: [email or web address]
== END ==
LOC: RAD 11:54
PROVIDERS: ATTEND Nurse Practitioner Family
DX: L89.323 Pressure ulcer of left buttock, stage 3 (principal)
CPT/HCPCS: 72197; A9576